=== PATIENT | female | born 1955 | race Caucasian/White ===

== ENCOUNTER 2017-01-30 14:49 | Emergency (ER) | payer BC, OTHER ==
[~2017-01-30] VITALS: Ht 167.6 cm; Wt 135.4 kg
[2017-01-30 15:04] VITALS: TEMP 36.8; Ht 167.6 cm; Wt 135.4 kg
[2017-01-30] MEDS ORDERED: HYDROCODONE/ACETAMOPHEN 5/325MG TAB PO STA (15:30)
[2017-01-30] MEDS ORDERED: BUSP15TA70 PO (15:44)
[2017-01-30] MEDS ORDERED: CETI10TA10 PO (15:44)
[2017-01-30] MEDS ORDERED: QUET1TAB37 PO (15:44)
[2017-01-30] MEDS ORDERED: MOME100A INH (15:44)
[2017-01-30] MEDS ORDERED: QUET400T PO (15:44)
[2017-01-30] MEDS ORDERED: TUMERIC PO (15:44)
[2017-01-30] MEDS ORDERED: OMEP40CA41 PO (15:44)
[2017-01-30] MEDS ORDERED: CLON1TAB3 PO (15:44)
[2017-01-30] MEDS ORDERED: FURO-85 PO (15:44)
[2017-01-30] MEDS ORDERED: FLUT0.15 NAE (15:44)
[2017-01-30] MEDS ORDERED: TRAZ50TA35 PO (15:44)
[2017-01-30] MEDS ORDERED: ATOR-24 PO (15:44)
[2017-01-30] MEDS ORDERED: MELO15TA4 PO (15:44)
[2017-01-30] MEDS ORDERED: BUPR75TA20 PO (15:44)
[2017-01-30] MEDS ORDERED: LEVO50TA6 PO (15:44)
[2017-01-30] MEDS ORDERED: CYAN100020 PO (15:44)
[2017-01-30] MEDS ORDERED: METF-384 PO (15:44)
[2017-01-30] MEDS ORDERED: NUTRTAB40 PO (15:44)
[2017-01-30] MEDS ORDERED: MELATAB2 PO (15:44)
[2017-01-30] MEDS ORDERED: BLAC540C3 PO (15:44)
[2017-01-30] MEDS ORDERED: VNTHFA/IN INH (15:44)
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
[2017-01-30] MEDS ORDERED: HYDR-5688 PO ×2 (16:49→17:12)
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
[2017-01-30 17:16] VITALS: BP 184/89; PULSE 88; O2SAT 92
== END 2017-01-30 17:20 | disposition home or self-care (01) ==
LOC: C.EDB 14:50 → C.EDD 17:20
DX: G44.319 Acute post-traumatic headache, not intractable (principal); S16.1XXA Strain of muscle, fascia and tendon at neck level, initial encounter; S29.019A Strain of muscle and tendon of unspecified wall of thorax, initial encounter; S60.222A Contusion of left hand, initial encounter; V43.52XA Car driver injured in collision with other type car in traffic accident, initial encounter; Y93.89 Activity, other specified; Y99.8 Other external cause status; Y92.410 Unspecified street and highway as the place of occurrence of the external cause; E11.9 Type 2 diabetes mellitus without complications; Z90.710 Acquired absence of both cervix and uterus; Z90.49 Acquired absence of other specified parts of digestive tract; Z90.89 Acquired absence of other organs; Z98.51 Tubal ligation status; Z98.890 Other specified postprocedural states; Z79.84 Long term (current) use of oral hypoglycemic drugs; F31.9 Bipolar disorder, unspecified; E66.01 Morbid (severe) obesity due to excess calories

== ENCOUNTER 2024-05-25 20:39 | Inpatient (IN) ==
[2024-05-25 21:42] LABS: Basophils # (auto) 0.03 K/uL (0.00-0.20); Basophils % (auto) 0.4 %; Eosinophils # (auto) 0.16 K/uL (0.00-0.50); Eosinophils % (auto) 2.2 %; Hematocrit (blood only) 39.6 % (37.0-47.0); Hemoglobin 13.9 g/dl (12.0-16.0); Immature Granulocytes # (auto) 0.02 K/uL (0.01-0.20); Immature Granulocytes % (auto) 0.3 %; Lymphocytes # (auto) 2.28 K/uL (1.20-3.40); Lymphocytes % (auto) 31.8 %; Mean Corpuscular Hemoglobin 30.8 pg (25.0-34.0); Mean Corpuscular Hgb Conc 35.1 g/dL (32.0-36.0); Mean Corpuscular Volume 87.6 fL (80.0-100.0); Mean Platelet Volume 10.9 fL (9.4-12.4); Monocytes # (auto) 0.59 K/uL (0.11-0.59); Monocytes % (auto) 8.2 %; Neutrophils % (auto) 57.1 %; Platelet Count 168 K/uL (130-400); RDW Coefficient of Variation 12.8 % (11.5-14.5); RDW Standard Deviation 40.9 fL (36.4-46.3); Red Blood Count 4.52 M/uL (4.20-5.40); White Blood Count 7.18 K/ul (4.8-10.8)
[2024-05-25 22:00] LABS: Appearance Urine Cloudy (Clear); Bacteria Urine Automated 3+ (None Seen); Bilirubin Urine Negative (Negative); Blood Urine Negative (Negative); Calcium Oxalate Crystals Urine Present (None Prsent); Cast Urine Automated >20 /lpf (0-2); Color Urine Yellow; Glucose Urine UA Negative (Negative); Hyaline Casts Urine Present /lpf (None Presnt); Ketones Urine Trace (Negative); Leukocyte Esterase Urine Trace (Negative); Mucus Urine Present (None Prsent); Nitrite Urine Negative (Negative); Protein Urine Trace (Negative); RBC Urine Automated 0-2 /hpf (0-2); Specific Gravity Urine 1.016 (1.000-1.030); Urobilinogen Urine Negative (Negative)
[2024-05-25 22:00] LABS: Albumin Globulin Ratio 2.1 (0.9-2); Albumin Level 4.8 gm/dl (3.4-5.0); BUN Creatinine Ratio 14.7 (10-20); Bilirubin,Total 1.3 mg/dl (0.2-1.0); Calcium 9.2 mg/dl (8.6-10.3); Creatinine Clr Calc Pharmacy 30.9 ml/min; Est GFR (African American) 27.6 ml/min; Est GFR (Non-African American) 23.8 ml/min; Globulin 2.3 gm/dl (2.5-4.0); Potassium 3.3 mmol/L (3.5-5.1); Total Protein 7.1 gm/dl (6.0-8.3)
[2024-05-25] MEDS: SODIUM CHLORIDE 0.9% 500 ML IV ONE (22:00)
[2024-05-25 22:06] LABS: Troponin I High Sensitivity 4.3 pg/ml (0-14)
[2024-05-25 22:15] LABS: Thyroid Stimulating Hormone 0.041 uIu/ml (0.300-4.500)
[2024-05-25 22:50] LABS: T4 Free Thyroxine 1.44 ng/dl (0.61-1.60)
[2024-05-25] MEDS: POTASSIUM CHLORIDE CRTAB 20 MEQ TABCR PO STA (22:56)
[2024-05-25] MEDS: cefTRIAXone SODIUM 2,000 MG/50 ML BAG IV STA (22:56)
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
--- NOTE | 2024-05-25 23:30 | Emergency Department Note ---
History of Present Illness General Chief complaint: Unable to Void Stated complaint: UNABLE TO VOID, NAUSEA/NOT EATING, LETHARGIC Time Seen by Provider: 05/25/24 21:25 History of Present Illness This 68-year-old female presents ER complaining of decreased appetite and feeling weak and not right for the past 3 weeks. Patient states has been drinking water but is barely urinating. Patient denies chest pain, dyspnea, fever, chills, cough, congestion, flulike illness. Home Medications Medication Instructions Recorded Confirmed Type multivitamin 1 tab PO QAM 12/02/19 05/25/24 History trazodone 100 mg tablet 100 mg PO HS 11/16/20 05/03/24 History cholecalciferol (vitamin D3) 25 25 mcg PO QAM 11/22/20 05/25/24 History mcg (1,000 unit) capsule (Vitamin D3) cyanocobalamin (vitamin B-12) 1,000 mcg PO QAM 11/22/20 05/03/24 History 1,000 mcg tablet (Vitamin B-12) vitamin A 2,400 mcg capsule 8,000 unit PO QAM 11/22/20 05/03/24 History bupropion HCl 150 mg tablet,12 hr 150 mg PO BID #60 ea 01/22/21 05/25/24 Rx sustained-release (Wellbutrin SR) albuterol sulfate 2.5 mg/3 mL 2.5 mg (3 mL) inhalation QID PRN 08/28/22 05/25/24 Rx (0.083 %) solution for nebulization shortness of breath or wheezing #90 mL nebulizer accessories #1 ea 08/28/22 05/03/24 Rx topiramate 100 mg tablet 100 mg PO TID 11/14/22 05/25/24 History lamotrigine 100 mg tablet 200 mg PO BID 04/02/23 05/25/24 History quetiapine 300 mg tablet 300 mg PO HS 04/02/23 05/03/24 History aspirin 81 mg tablet,delayed 81 mg PO HS 06/27/23 05/25/24 History release albuterol sulfate 90 mcg/actuation 2 puff inhalation Q6H PRN 10/09/23 05/25/24 Rx aerosol inhaler shortness of breath or wheezing #6.7 grams buspirone 10 mg tablet 20 mg PO TID 11/17/23 05/25/24 History melatonin 5 mg capsule 10 mg PO HS 11/19/23 05/25/24 History atorvastatin 40 mg tablet 40 mg PO QAM #90 tabs 01/12/24 05/25/24 Rx pantoprazole 40 mg tablet,delayed 40 mg PO BID #180 tabs 03/05/24 05/03/24 Rx release fluticasone furoate 100 1 inh inhalation DAILY PRN 03/09/24 05/03/24 History mcg-vilanterol 25 mcg/dose inhalation powder (Breo Ellipta) meloxicam 15 mg tablet 15 mg PO QPM #90 tabs 03/19/24 05/03/24 Rx potassium chloride 10 mEq 20 meq (2 x 10 mEq) PO DAILY #180 03/24/24 05/03/24 Rx tablet,extended release(part/cryst) tabs semaglutide 2 mg/dose (8 mg/3 mL) 2 mg (0.75 mL) subcut Q7D #3 mL 04/12/24 05/25/24 Rx subcutaneous pen injector furosemide 20 mg tablet (Lasix) 40 mg (2 x 20 mg) PO QAM #90 tabs 04/30/24 05/03/24 Rx metformin 1,000 mg tablet 1,000 mg PO BID #180 tabs 04/30/24 05/03/24 Rx tramadol 50 mg tablet 50 mg PO BID #60 tabs 04/30/24 05/03/24 Rx azelastine 137 mcg (0.1 %) nasal 2 spray intranasal BID PRN 05/03/24 05/25/24 Rx spray congestion #30 mL fluticasone propionate 50 2 spray intranasal BID PRN 05/03/24 05/03/24 Rx mcg/actuation nasal allergies #16 grams spray,suspension (Flonase Allergy Relief) gabapentin 300 mg capsule 300 mg PO .COMPLEX #90 caps 05/03/24 05/03/24 Rx quetiapine 25 mg tablet 25 mg PO BID 05/03/24 05/25/24 History levothyroxine 125 mcg tablet 125 mcg PO DAILYBB 05/25/24 05/25/24 History linaclotide 72 mcg capsule 72 mcg PO DAILY PRN Diarrhea 05/25/24 05/25/24 History Allergies Allergy/AdvReac Type Severity Reaction Status Date / Time pollen extracts Allergy Intermediate ITCHY Verified 05/03/24 13:04 EYES, RUNNY NOSE, SNEEZING No Known Drug Allergies Allergy Unknown Verified 05/03/24 13:04 Past Med/Surg History Problem List (Updated 05/25/24 @ 23:34 by Cydney Moscoso PA-C) Hypokalemia (Acute) Hypomagnesemia (Acute) MARIPOSA (acute kidney injury) (Acute) Acute UTI (Acute) Bulging lumbar disc Lumbar stenosis Greater trochanteric bursitis Lumbar radicular pain Imbalance MCI (mild cognitive impairment) Memory loss Cognitive complaints Dysphagia Sacroiliitis ETD (eustachian tube dysfunction) Migraine TMJ (temporomandibular joint disorder) Left asymmetrical SNHL Adverse reaction to anesthetic agent nausea GERD (gastroesophageal reflux disease) Seasonal allergies Allergy-induced asthma inhaler prn Urinary incontinence Diabetes mellitus with diabetic neuropathy Chronic mixed headache syndrome Hypothyroid Bipolar 1 disorder, depressed Insomnia Diabetes type 2, controlled Obesity Osteoarthritis Sarcoidosis Sensorineural hearing loss of both ears Irritable bowel syndrome with constipation Depression Medical History Hx of bronchitis second week 10/2023, recently put on abx 11/17/23 "because symptoms weren't resolving" Influenza A (~08/28/22) hx Morbid obesity with BMI of 40.0-44.9, adult Nausea and vomiting after administration of anesthetic agent "only happened once" History of kidney stones History of esophageal dilatation COVID-19 (11/16/20) diagnosed x2---middle of Sep 2021 via HOME TEST ONLY--head cold symptoms/sinus issues--no symptoms now 11/16/20--had pneumonia--had to be admitted to [facility] for 1 week on supplemental oxygen Surgical History History of colonoscopy History of total hysterectomy with bilateral salpingo-oophorectomy (BSO) History of cervical discectomy normal ROM History of total right knee replacement (TKR) History of total left knee replacement (TKR) History of tooth extraction History of wisdom tooth extraction History of esophagogastroduodenoscopy (EGD) History of bilateral cataract extraction History of cardiac cath "over 20yrs ago" @ [facility]--no stents; no cardio. History of lymph node biopsy per pt for sarcoidosis diagnosis Hx of tubal ligation S/P appendectomy History of cholecystectomy Family History Aunt Breast cancer, Onset Age: 50 Father Myocardial infarction, Onset Age: 50 Dementia Mother Lung cancer Lung disease Father Depression Heart disease Parkinson disease Sister Anxiety Daughter , age 34 Accidental overdose Other No family history of adverse response to anesthesia Denies family history of Ovarian cancer Prostate cancer Colorectal cancer Social History Smoking Status: Never smoker Second Hand Exposure: Yes (hx as child); Do You Dip or Chew Tobacco: No; Hx Alcohol Use: Yes Alcohol type: wine Hx Substance Use: No Preferred Language: Croatian Communication Ability: Effective Visual Impairment: Partially Limited Hearing Ability: Normal Front End Mechanic Required: No Beliefs That Will Affect Care: None marital status: Current Living Situation: Spouse current occupational status: disabled Feels Safe at Home: Yes Childhood Exposure to Second-Hand Smoke: Yes Diet: regular Diet Comment: Regular caffeine: Yes (1 to 2 cups coffee daily) during the past year weight has: remained stable Dental Care, Regularly: No Physical Activity Frequency: 3-4 Times per Week Physical Activity Frequency Comment: walking-limited by physical condition Seatbelt Use: always Sunscreen Use: Yes Assistive Devices: Hearing Aid - Bilateral Review of Systems A total of 10 systems reviewed and were otherwise negative Physical Exam Vital Signs Vital Signs - 24 hr 05/25/24 20:41 05/25/24 21:40 05/25/24 22:00 Temperature 36.2 C L Temperature Source Temporal Artery Scan Pulse Rate 90 68 Pulse Rate [Apical] 65 Pulse Rhythm Regular Pulse Rhythm [Apical] Regular Pulse Strength Normal Pulse Strength [Apical] Normal Respiratory Rate 20 18 Respiratory Effort / Characteristics Non-Labored Spontaneous Non-Labored Respiratory Depth Normal Normal Respiratory Pattern Regular Blood Pressure 151/74 H Blood Pressure [Left Arm] 120/72 Blood Pressure Mean 99 Blood Pressure Mean [Left Arm] 88 Pulse Oximetry 95 96 Oxygen Delivery Method Room Air Room Air Sepsis Recent Fever Within 48 Hours No Sepsis New/Unexplained Change in Mental Status N/A Sepsis Action Taken by Nursing No Action Required VITALS: Vitals are noted on the nurse's note and reviewed by myself. Vital signs stable. GENERAL: Pleasant female with spouse present, in no acute distress, nondiaphoretic, well-developed well-nourished. SKIN: Capillary reflex less than 2 seconds. HEENT: Normocephalic. PERRLA. EOMI. Nares patent. Mucous membranes moist. Neck is supple without nuchal rigidity. HEART: Regular rate and rhythm LUNGS: Clear to auscultation bilaterally without wheezes, rales or rhonchi. No retractions or accessory muscle use. ABDOMEN: Positive bowel sounds x 4. Normal tympanic percussion. Soft, tender lower abdomen, without masses or organomegaly. Fagan sign negative. No guarding or rebound tenderness. no CVA tenderness MUSCULOSKELETAL: No gross musculoskeletal defects. NEURO: Patient was alert and oriented to person place and time. No focal neurological deficits. Course Administered Medications Discontinued Medications Sodium Chloride (Nss) 500 mls @ 999 mls/hr IV .Q31M ONE Stop: 05/25/24 22:06 Last Infusion: 05/25/24 22:43 Dose: Infused Documented By: Admin: 05/25/24 22:00 Dose: 999 mls/hr Documented By: EUGENIO Ceftriaxone Sodium (Rocephin) 2,000 mg in 50 mls @ 100 mls/hr IV NOW STA Stop: 05/25/24 22:38 Last Admin: 05/25/24 22:56 Dose: 100 mls/hr Documented By: EUGENIO Potassium Chloride (Potassium Chloride Crtab 20 Meq Tabcr) 40 meq PO NOW STA Stop: 05/25/24 22:09 Last Admin: 05/25/24 22:56 Dose: 40 meq Documented By: EUGENIO Medical Decision Making Medical Records Attestation: I reviewed the patient's medical records. Home Medications Current Medication List: was personally reviewed by me Laboratory Data Attestation: I reviewed the patient's lab results. 05/25/24 21:19 05/25/24 21:19 Lab Results 05/25/24 05/25/24 Range/Units 21:19 Unknown WBC 7.18 (4.8-10.8) K/ul RBC 4.52 (4.20-5.40) M/uL Hgb 13.9 (12.0-16.0) g/dl Hct 39.6 (37.0-47.0) % MCV 87.6 (80.0-100.0) fL MCH 30.8 (25.0-34.0) pg MCHC 35.1 (32.0-36.0) g/dL RDW Std Deviation 40.9 (36.4-46.3) fL RDW Coeff of [place] 12.8 (11.5-14.5) % Plt Count 168 (130-400) K/uL MPV 10.9 (9.4-12.4) fL Immature Gran % (Auto) 0.3 % Neut % (Auto) 57.1 % Lymph % (Auto) 31.8 % Scott % (Auto) 8.2 % Eos % (Auto) 2.2 % Baso % (Auto) 0.4 % Neut # (Auto) 4.10 (1.40-6.50) K/uL Lymph # (Auto) 2.28 (1.20-3.40) K/uL Scott # (Auto) 0.59 (0.11-0.59) K/uL Eos # (Auto) 0.16 (0.00-0.50) K/uL Baso # (Auto) 0.03 (0.00-0.20) K/uL Immature Gran # (Auto) 0.02 (0.01-0.20) K/uL Sodium 132 L (136-145) mmol/L Potassium 3.3 L (3.5-5.1) mmol/L Chloride 91 L (98-107) mmol/L Carbon Dioxide 28 (21-32) mmol/L Anion Gap 13 H (3-11) BUN 31 H (6-23) mg/dl Creatinine 2.11 H (0.6-1.2) mg/dl Est Cr Clr Drug Dosing 30.9 ml/min Est GFR ( Amer) 27.6 ml/min Est GFR (Non-Af Amer) 23.8 ml/min BUN/Creatinine Ratio 14.7 (10-20) Glucose 90 (70-99(Fasting)) mg/dl Calcium 9.2 (8.6-10.3) mg/dl Magnesium 1.0 L (1.7-2.4) mg/dl Total Bilirubin 1.3 H (0.2-1.0) mg/dl AST 21 (13-39) U/L ALT 19 (7-52) U/L Alkaline Phosphatase 58 (34-104) U/L Troponin I High Sens 4.3 (0-14) pg/ml Total Protein 7.1 (6.0-8.3) gm/dl Albumin 4.8 (3.4-5.0) gm/dl Globulin 2.3 L (2.5-4.0) gm/dl Albumin/Globulin Ratio 2.1 H (0.9-2) Lipase 60 (11-82) U/L TSH 0.041 L (0.300-4.500) uIu/ml Free T4 1.44 (0.61-1.60) ng/dl Urine Color Yellow Urine Appearance Cloudy A (Clear) Urine pH 5.0 (4.5-7.5) Ur Specific [place] 1.016 (1.000-1.030) Urine Protein Trace H (Negative) Urine Glucose (UA) Negative (Negative) Urine Ketones Trace H (Negative) Urine Blood Negative (Negative) Urine Nitrite Negative (Negative) Urine Bilirubin Negative (Negative) Urine Urobilinogen Negative (Negative) Ur Leukocyte Esterase Trace H (Negative) Urine WBC (Auto) 6-10 H (0-5) /hpf Urine RBC (Auto) 0-2 (0-2) /hpf U Hyaline Cast (Auto) >20 H (0-2) /lpf U Epithel Cells (Auto) 11-20 H (0-2) /hpf Urine Bacteria (Auto) 3+ H (None Seen) Calcium Oxalate Crystal Present A (None Prsent) Hyaline Casts Present A (None Presnt) /lpf Urine Mucus Present A (None Prsent) Imaging Data Attestation: I personally reviewed and interpreted this imaging study as follows: Radiologist's Impression: Abdomen/Pelvis CT 05/25/24 22:08 Exam(s): CT ABDOMEN + PELVIS Without Contrast EXAM: CT Abdomen and Pelvis Without Intravenous Contrast CLINICAL HISTORY: Reason for exam: lower abd pain. TECHNIQUE: Axial computed tomography images of the abdomen and pelvis without intravenous contrast. CTDI is 27.97 mGy and DLP is 1322.6 mGy-cm. Automated exposure control was utilized for the study. A dose lowering technique was utilized adhering to the principles of ALARA. COMPARISON: CT abdomen/pelvis on 11/19/2021 FINDINGS: Lung bases: Unremarkable. No mass. No consolidation. ABDOMEN: Liver: Unremarkable. Gallbladder and bile ducts: Prior cholecystectomy. No ductal dilation. Pancreas: Unremarkable. No ductal dilation. Spleen: Unremarkable. No splenomegaly. Adrenals: Unremarkable. No mass. Kidneys and ureters: Nonspecific mild bilateral perinephric fat stranding. Punctate nonobstructing right renal stone. No hydronephrosis or obstructing ureteral stone. Stomach and bowel: Fluid in the colon is suggestive of diarrheal state. Possible enteritis. No small bowel obstruction. Dilation of the stomach is limited by underdistention. PELVIS: Appendix: Appendix is not visualized on this exam. Bladder: Unremarkable. No stones. Reproductive: Prior hysterectomy. ABDOMEN and PELVIS: Intraperitoneal space: Unremarkable. No free air. No significant fluid collection. Bones/joints: Degenerative changes of the spine. No acute fracture. No dislocation. Soft tissues: Unremarkable. Vasculature: Phleboliths of the pelvis. No abdominal aortic aneurysm. Lymph nodes: Unremarkable. No enlarged lymph nodes. IMPRESSION: 1. Fluid in the colon is suggestive of diarrheal state. Possible enteritis. No small bowel obstruction. 2. Punctate nonobstructing right renal stone. No hydronephrosis or obstructing ureteral stone. Electronically signed by: Zaina Orozco M.D. 05/25/24 23:16 PM [facility] Narrative Prior records/ancillary studies reviewed and summarized above. Nursing notes reviewed. Additional history obtained from family. The patient's history was concerning for feeling rundown for the month. Differential diagnosis: Etiologies such as metabolic, infection, hypo/hyperglycemia, electrolyte abnormalities, cardiac sources, intracerebral event, toxicologic, neurologic, as well as others were entertained. Physical examination: As above. ER treatment provided: IV Lock An order was placed for continuous cardiac monitoring. The monitor shows a rate of 60-100 with a sinus rhythm per my interpretation. IV fluids, Rocephin for UTI, potassium and magnesium were replaced On reassessment the patient felt better. Diagnostics interpretation by me: ECG: Ordered for weakness EKG: Normal sinus, normal intervals, no acute ST-T wave changes. Impression normal sinus rhythm independent interpreted by myself The labs Independently Interpreted by myself revealed acute kidney injury, low magnesium, low potassium Imaging studies: CT as above Consultation: A consultation was placed with the hospitalist. The case was discussed and diagnostics were reviewed. The patient was evaluated in the ER for further treatment. Exam and history seem consistent with acute kidney injury with UTI low magnesium and potassium. Patient was medicated as above. She was started on antibiotics. Prior urine culture was reviewed. Medicine was consulted case discussed. She will be mated to the medical service.By the evaluation outlined above emergent etiologies such as cardiac sources, intracerebral event, toxologic, neurologic, abnormalities blood glucose, metabolic, as well as others were deemed relatively unlikely. The pt informed about the findings as listed above. All questions were answered and pleased with the treatment. The chart was completed utilizing [employer] Speech voice recognition software. Grammatical errors, random word insertions, pronoun errors, and incomplete sentences are an occassional consequence of this system due to software limitations, ambient noise, and hardware issues. Any formal questions or concerns about the content, text, or information contained within the body of this dictation should be directly addressed to the physician dental ceramist assistant for clarification. Impression & Plan Acute UTI, MARIPOSA (acute kidney injury), Hypomagnesemia, Hypokalemia Discharge Plan Visit Data Chief Complaint: Unable to Void Stated Complaint: UNABLE TO VOID, NAUSEA/NOT EATING, LETHARGIC ED Provider: [facility] ED Midlevel Provider: Cydney Moscoso Discharge Problem: Acute UTI, MARIPOSA (acute kidney injury), Hypomagnesemia, Hypokalemia Patient Disposition: Admitted As Inpatient Condition: Fair Forms Stand Alone Forms: [facility] Prescriptions Prescriptions: No Action quetiapine 25 mg tablet 25 mg PO BID Rx Instructions: morning and afternoon gabapentin 300 mg capsule 300 mg PO .COMPLEX Qty: 90 0RF Rx Instructions: 300 mg PO QHS x 1 week; 1 cap PO BID x 1 week; then 1 cap PO TID; bupropion HCl [Wellbutrin SR] 150 mg tablet sustained-release 12 hr 150 mg PO BID Qty: 60 2RF albuterol sulfate 90 mcg/actuation HFA aerosol inhaler 2 puff inhalation Q6H PRN (Reason: shortness of breath or wheezing) Qty: 6.7 1RF linaclotide 72 mcg capsule 72 mcg PO QAM Qty: 90 2RF Rx Instructions: clarified with patient taking 72 mcg capsule daily atorvastatin 40 mg tablet 40 mg PO QAM Qty: 90 1RF pantoprazole 40 mg tablet,delayed release (DR/EC) 40 mg PO BID Qty: 180 0RF meloxicam 15 mg tablet 15 mg PO QPM Qty: 90 2RF levothyroxine 125 mcg tablet 125 mcg PO DAILY Qty: 90 1RF semaglutide 2 mg/dose (8 mg/3 mL) pen injector 2 mg subcut Q7D Qty: 3 2RF Rx Instructions: MONDAYS furosemide [Lasix] 20 mg tablet 40 mg PO QAM Qty: 90 1RF Patient Comments: patient decreased herself metformin 1,000 mg tablet 1,000 mg PO BID Qty: 180 1RF tramadol 50 mg tablet 50 mg PO BID Qty: 60 0RF azelastine 137 mcg (0.1 %) spray,non-aerosol 2 spray INTNAS BID PRN (Reason: congestion) Qty: 30 1RF Rx Instructions: Administer into each nostril fluticasone propionate [Flonase Allergy Relief] 50 mcg/actuation spray,suspension 2 spray INTNAS BID PRN (Reason: allergies) Qty: 16 1RF multivitamin Tablet 1 tab PO QAM trazodone 100 mg tablet 100 mg PO HS (DME) nebulizer accessories Kit See Rx Instructions .Route Qty: 1 0RF Rx Instructions: As directed albuterol sulfate 2.5 mg /3 mL (0.083 %) solution for nebulization 2.5 mg inhalation QID PRN (Reason: shortness of breath or wheezing) Qty: 90 2RF Rx Instructions: DX ASTHMA topiramate 100 mg tablet 100 mg PO TID potassium chloride 10 mEq tablet,ER particles/crystals 20 meq PO DAILY Qty: 180 3RF fluticasone furoate-vilanterol [Breo Ellipta] 100-25 mcg/dose blister with device 1 inh inhalation DAILY PRN vitamin A 8,000 unit Capsule 8,000 unit PO QAM cyanocobalamin (vitamin B-12) [Vitamin B-12] 1,000 mcg Tablet 1,000 mcg PO QAM cholecalciferol (vitamin D3) [Vitamin D3] 25 mcg (1,000 unit) Capsule 25 mcg PO QAM lamotrigine 100 mg tablet 200 mg PO BID quetiapine 300 mg tablet 300 mg PO HS aspirin 81 mg tablet,delayed release (DR/EC) 81 mg PO HS buspirone 10 mg tablet 20 mg PO TID melatonin 5 mg Capsule 5 mg PO HS Referrals Referrals: Jennifer Peng DO [Primary Care Provider] -
--- NOTE | 2024-05-25 23:32 | Emergency Department Note ---
ED Visit Note I was consulted by the Advanced Practice Provider. I personally made/approved the management plan and take responsibility for the patient management. I performed a substantive portion of the visit. This includes the aspects of: -History/Physical -MDM .
[2024-05-25] MEDS: MAGNESIUM SULFATE / D5W 1 GM/100 ML BAG IV SCH (23:36)
--- NOTE | 2024-05-25 23:45 | History & Physical Report ---
Date of Service May 25, 2024 Assessment & Plan (1) MARIPOSA (acute kidney injury): Plan: 68yo female with DM, GERD, Bipolar I and chronic pain presenting with acute on chronic abdominal pain. Patient reports new urinary symptoms as well. Workup with electrolyte derangements as below - hypomagnesemia, hypokalemia and hyponatremia. Also with MARIPOSA and acute UTI. BUN=31 and Cr=2.11, roughly doubled from last measurement on 03/24/24 (BUN=15 and Cr=0.81 at that time). Patient reports decreased UOP over the last few days. Bladder scan performed in the ER with minimal urine (appx 65mL) in bladder. Suspect pre-renal etiology - possibly secondary to decreased intake -Admit to medical with telemetry -Check urine Cr and Na to calculate FeNA -Avoid nephrotoxic agents -Renal dosing where needed (2) Hypokalemia: Plan: K=3.3. Possibly secondary to poor oral intake -Patient has been given 40meq PO thus far -Will continue repletion with caution given MARIPOSA - 10mEq KCL to be placed in 2L LR maintenance fluid -Repeat BMP in AM (3) Hypomagnesemia: Plan: Magnesium significantly low at 1. Has received 2gm thus far. Uncertain if this is secondary to poor oral intake. Patient is also on Protonix 40mg po BID. -Continue Magnesium supplementation -Will order 3 additional grams (Total 5gm) -Repeat Magnesium level in AM (4) Acute UTI: Plan: Patient with UTI. She is afebrile, HD stable and non-toxic in appearance. Possibly contributing to her lower abdominal pain. -Follow culture -Ceftriaxone 2gm IV daily (5) Bipolar 1 disorder, depressed: Plan: Patient reports stable moods -Continue Trazodone 100mg po qHS -Continue Topamax 100mg po TID -Continue Seroquel 300mg po qHS and 25mg po BID -Continue Lamictal - will REDUCE dose from 200mg po BID to 100mg po BID for now given renal compromise -Continue Buspar 20mg po TID -Continue Bupropion 150mg po BID Plan Chronic Medical Conditions: GERD - chronic -Continue Protonix -Will change to 40mg IV BID Constipation - patient reports that she takes linzess as needed for her IBS-C. She takes it approximately 3x weekly with good results -Continue Linzess PRN Hypothyroidism - chronic. TSH is low at 0.041 with normal T4 -Continue Synthroid 125mcg po daily Diabetes - well controlled. Patient is on Metformin. Last RpmC5A=9.6 on 03/24/24 -Hold oral agents -ISS Hyperlipidemia - chronic -Continue Atorvastatin History of Present Illness Chief Complaint: abdominal pain Primary Care Provider: Jennifer Peng DO Pearl Crouch is a 68yo female with history of DM, GERD, Hypothyroidism and chronic pain presenting from home with ongoing abdominal pain. Patient reports she has had diffuse abdominal discomfort for a while. However, over the last day she has had worsening of lower abdominal discomfort - she reports it as a burning and cramping pain. She reports normal bowel movements - no diarrhea or blood. She has been having difficulty urinating over the last 2-3 days - she reports minimal urine output despite trying to drink increased fluids. This evening she developed dysuria and nausea with dry heaving as well. In the ER she is afebrile, HD stable and non-toxic ER Course: NSS x 500mL KCl 40mEq PO Ceftriaxone 2gm IV Magnesium x 2gm Tylenol x 1gm Allergies Allergy/AdvReac Type Severity Reaction Status Date / Time pollen extracts Allergy Intermediate ITCHY Verified 05/25/24 23:48 EYES, RUNNY NOSE, SNEEZING No Known Drug Allergies Allergy Unknown Unknown Verified 05/25/24 23:48 Home Medications Medication Instructions Recorded Confirmed Type multivitamin 1 tab PO QAM 12/02/19 05/25/24 History trazodone 100 mg tablet 100 mg PO HS 11/16/20 05/25/24 History cholecalciferol (vitamin D3) 25 25 mcg PO QAM 11/22/20 05/25/24 History mcg (1,000 unit) capsule (Vitamin D3) cyanocobalamin (vitamin B-12) 1,000 mcg PO QAM 11/22/20 05/25/24 History 1,000 mcg tablet (Vitamin B-12) vitamin A 2,400 mcg capsule 8,000 unit PO QAM 11/22/20 05/25/24 History bupropion HCl 150 mg tablet,12 hr 150 mg PO BID #60 ea 01/22/21 05/25/24 Rx sustained-release (Wellbutrin SR) albuterol sulfate 2.5 mg/3 mL 2.5 mg (3 mL) inhalation QID PRN 12/07/22 09/03/24 Rx (0.083 %) solution for nebulization shortness of breath or wheezing #90 mL nebulizer accessories #1 ea 08/28/22 05/25/24 Rx topiramate 100 mg tablet 100 mg PO TID 11/14/22 05/25/24 History lamotrigine 100 mg tablet 200 mg PO BID 04/02/23 05/25/24 History quetiapine 300 mg tablet 300 mg PO HS 04/02/23 05/25/24 History aspirin 81 mg tablet,delayed 81 mg PO HS 06/27/23 05/25/24 History release albuterol sulfate 90 mcg/actuation 2 puff inhalation Q6H PRN 10/09/23 05/25/24 Rx aerosol inhaler shortness of breath or wheezing #6.7 grams buspirone 10 mg tablet 20 mg PO TID 11/17/23 05/25/24 History melatonin 5 mg capsule 10 mg PO HS 11/19/23 05/25/24 History atorvastatin 40 mg tablet 40 mg PO QAM #90 tabs 01/12/24 05/25/24 Rx pantoprazole 40 mg tablet,delayed 40 mg PO BID #180 tabs 03/05/24 05/25/24 Rx release fluticasone furoate 100 1 inh inhalation DAILY PRN 03/09/24 05/25/24 History mcg-vilanterol 25 mcg/dose Shortness Of Breath inhalation powder (Breo Ellipta) semaglutide 2 mg/dose (8 mg/3 mL) 2 mg (0.75 mL) subcut Q7D #3 mL 04/12/24 05/25/24 Rx subcutaneous pen injector furosemide 20 mg tablet (Lasix) 40 mg (2 x 20 mg) PO QAM #90 tabs 04/30/24 05/25/24 Rx metformin 1,000 mg tablet 1,000 mg PO BID #180 tabs 04/30/24 05/25/24 Rx tramadol 50 mg tablet 50 mg PO BID #60 tabs 04/30/24 05/25/24 Rx azelastine 137 mcg (0.1 %) nasal 2 spray intranasal BID PRN 05/03/24 05/25/24 Rx spray congestion #30 mL fluticasone propionate 50 2 spray intranasal BID PRN 05/03/24 05/25/24 Rx mcg/actuation nasal allergies #16 grams spray,suspension (Flonase Allergy Relief) gabapentin 300 mg capsule 300 mg PO .COMPLEX #90 caps 05/03/24 05/25/24 Rx quetiapine 25 mg tablet 25 mg PO BID 05/03/24 05/25/24 History levothyroxine 125 mcg tablet 125 mcg PO DAILYBB 05/25/24 05/25/24 History linaclotide 72 mcg capsule 72 mcg PO DAILY PRN Diarrhea 05/25/24 05/25/24 History meloxicam 15 mg tablet 15 mg PO QDL 05/25/24 05/25/24 History potassium chloride 10 mEq 20 meq PO QAM 05/25/24 05/25/24 History tablet,extended release(part/cryst) Past Med/Surg History Problem List Hypokalemia (Acute) Hypomagnesemia (Acute) MARIPOSA (acute kidney injury) (Acute) Acute UTI (Acute) Bulging lumbar disc Lumbar stenosis Greater trochanteric bursitis Lumbar radicular pain Imbalance MCI (mild cognitive impairment) Memory loss Cognitive complaints Dysphagia Sacroiliitis ETD (eustachian tube dysfunction) Migraine TMJ (temporomandibular joint disorder) Left asymmetrical SNHL Adverse reaction to anesthetic agent nausea GERD (gastroesophageal reflux disease) Seasonal allergies Allergy-induced asthma inhaler prn Urinary incontinence Diabetes mellitus with diabetic neuropathy Chronic mixed headache syndrome Hypothyroid Bipolar 1 disorder, depressed Insomnia Diabetes type 2, controlled Obesity Osteoarthritis Sarcoidosis Sensorineural hearing loss of both ears Irritable bowel syndrome with constipation Depression Medical History Hx of bronchitis second week 10/2023, recently put on abx 11/17/23 "because symptoms weren't resolving" Influenza A (~08/28/22) hx Morbid obesity with BMI of 40.0-44.9, adult Nausea and vomiting after administration of anesthetic agent "only happened once" History of kidney stones History of esophageal dilatation COVID-19 (11/16/20) diagnosed x2---middle of Sep 2021 via HOME TEST ONLY--head cold symptoms/s inus issues--no symptoms now 11/16/20--had pneumonia--had to be admitted to [facility] for 1 week on supplemental oxygen Surgical History History of colonoscopy History of total hysterectomy with bilateral salpingo-oophorectomy (BSO) History of cervical discectomy normal ROM History of total right knee replacement (TKR) History of total left knee replacement (TKR) History of tooth extraction History of wisdom tooth extraction History of esophagogastroduodenoscopy (EGD) History of bilateral cataract extraction History of cardiac cath "over 20yrs ago" @ [facility]--no stents; no cardio. History of lymph node biopsy per pt for sarcoidosis diagnosis Hx of tubal ligation S/P appendectomy History of cholecystectomy Family History Aunt Breast cancer, Onset Age: 50 Father Myocardial infarction, Onset Age: 50 Dementia Mother Lung cancer Lung disease Father Depression Heart disease Parkinson disease Sister Anxiety Daughter , age 34 Accidental overdose Other No family history of adverse response to anesthesia Denies family history of Ovarian cancer Prostate cancer Colorectal cancer Social History Smoking Status: Never smoker Second Hand Exposure: Yes (hx as child); Do You Dip or Chew Tobacco: No; Hx Alcohol Use: Yes Alcohol type: wine Hx Substance Use: No Preferred Language: Bermudian Communication Ability: Effective Visual Impairment: Partially Limited Hearing Ability: Normal Networking Technician Required: No Beliefs That Will Affect Care: None marital status: Current Living Situation: Spouse current occupational status: disabled Feels Safe at Home: Yes Childhood Exposure to Second-Hand Smoke: Yes Diet: regular Diet Comment: Regular caffeine: Yes (1 to 2 cups coffee daily) during the past year weight has: remained stable Dental Care, Regularly: No Physical Activity Frequency: 3-4 Times per Week Physical Activity Frequency Comment: walking-limited by physical condition Seatbelt Use: always Sunscreen Use: Yes Assistive Devices: Hearing Aid - Bilateral Review of Systems Review of Systems: All systems reviewed & are unremarkable except as noted in HPI & below Physical Exam Physical Exam: General: patient resting comfortably, NAD, non-toxic in appearance, AA&O x 4 Skin: warm, dry, intact, no rashes or lesions HEENT: NC/AT, PERRL, EOMI, anicteric sclera, conjunctiva without injection, external ear normal to inspection and nontender, nares patent, moist mucus membranes, dentition intact, no oropharyngeal lesions, neck supple, trachea midline, no LAD, no thyromegaly, no JVD Heart: +S1/S2, regular, no m/r/g Lungs: equal air entry bilaterally, no rales/rhonchi/wheezes Abd: +BS, soft, ND, lower abdominal tenderness to palpation with some voluntary guarding, no masses/organomegaly/ascites Ext: warm, 2+ pulses in UE/LE bilaterally, no clubbing/cyanosis or edema Neuro: nonfocal, patient AA&O x 4, speech intact, no facial droop, moving all extremities on command with equal strength 5/5 Results & Data Results & Data Vital Signs (Past 12 Hours) Vital Signs Temp Pulse Pulse Resp BP BP Pulse Ox 05/25/24 22:00 65 18 120/72 96 05/25/24 21:40 68 05/25/24 20:41 36.2 C L 90 20 151/74 H 95 O2 Del Method 05/25/24 22:00 Room Air 05/25/24 21:40 05/25/24 20:41 Room Air Laboratory Results Laboratory Results WBC 7.18 K/ul (4.8-10.8) 05/25/24 21:19 RBC 4.52 M/uL (4.20-5.40) 05/25/24 21:19 Hgb 13.9 g/dl (12.0-16.0) 05/25/24 21:19 Hct 39.6 % (37.0-47.0) 05/25/24 21:19 MCV 87.6 fL (80.0-100.0) 05/25/24 21:19 MCH 30.8 pg (25.0-34.0) 05/25/24 21: MCHC 35.1 g/dL (32.0-36.0) 05/25/24 21:19 RDW Std Deviation 40.9 fL (36.4-46.3) 05/25/24 21:19 RDW Coeff of [place] 12.8 % (11.5-14.5) 05/25/24 21: Plt Count 168 K/uL (130-400) 05/25/24 21:19 MPV 10.9 fL (9.4-12.4) 05/25/24 21:19 Immature Gran % (Auto) 0.3 % 05/25/24 21:19 Neut % (Auto) 57.1 % 05/25/24 21:19 Lymph % (Auto) 31.8 % 05/25/24 21:19 [place] % (Auto) 8.2 % 05/25/24 21:19 Eos % (Auto) 2.2 % 05/25/24 21:19 Baso % (Auto) 0.4 % 05/25/24 21:19 Neut # (Auto) 4.10 K/uL (1.40-6.50) 05/25/24 21:19 Lymph # (Auto) 2.28 K/uL (1.20-3.40) 05/25/24 21:19 [place] # (Auto) 0.59 K/uL (0.11-0.59) 05/25/24 21:19 Eos # (Auto) 0.16 K/uL (0.00-0.50) 05/25/24 21:19 Baso # (Auto) 0.03 K/uL (0.00-0.20) 05/25/24 21:19 Immature Gran # (Auto) 0.02 K/uL (0.01-0.20) 05/25/24 21:19 Sodium 132 mmol/L (136-145) L 05/25/24 21:19 Potassium 3.3 mmol/L (3.5-5.1) L 05/25/24 21:19 Chloride 91 mmol/L (98-107) L 05/25/24 21:19 Carbon Dioxide 28 mmol/L (21-32) 05/25/24 21:19 Anion Gap 13 (3-11) H 05/25/24 21:19 BUN 31 mg/dl (6-23) H 05/25/24 21:19 Creatinine 2.11 mg/dl (0.6-1.2) H 05/25/24 21:19 Est Cr Clr Drug Dosing 30.9 ml/min 05/25/24 21:19 Est GFR ( Amer) 27.6 ml/min 05/25/24 21:19 Est GFR (Non-Af Amer) 23.8 ml/min 05/25/24 21:19 BUN/Creatinine Ratio 14.7 (10-20) 05/25/24 21:19 Glucose 90 mg/dl (70-99(Fasting)) 05/25/24 21:19 Calcium 9.2 mg/dl (8.6-10.3) 05/25/24 21:19 Magnesium 1.0 mg/dl (1.7-2.4) L 05/25/24 21:19 Total Bilirubin 1.3 mg/dl (0.2-1.0) H 05/25/24 21:19 AST 21 U/L (13-39) 05/25/24 21:19 ALT 19 U/L (7-52) 05/25/24 21:19 Alkaline Phosphatase 58 U/L (34-104) 05/25/24 21:19 Troponin I High Sens 4.3 pg/ml (0-14) 05/25/24 21:19 Total Protein 7.1 gm/dl (6.0-8.3) 05/25/24 21:19 Albumin 4.8 gm/dl (3.4-5.0) 05/25/24 21:19 Globulin 2.3 gm/dl (2.5-4.0) L 05/25/24 21:19 Albumin/Globulin Ratio 2.1 (0.9-2) H 05/25/24 21:19 Lipase 60 U/L (11-82) 05/25/24 21:19 TSH 0.041 uIu/ml (0.300-4.500) L 05/25/24 21:19 Free T4 1.44 ng/dl (0.61-1.60) 05/25/24 21:19 Urine Color Yellow 05/25/24 Unknown Urine Appearance Cloudy (Clear) A 05/25/24 Unknown Urine pH 5.0 (4.5-7.5) 05/25/24 Unknown Ur Specific [place] 1.016 (1.000-1.030) 05/25/24 Unknown Urine Protein Trace (Negative) H 05/25/24 Unknown Urine Glucose (UA) Negative (Negative) 05/25/24 Unknown Urine Ketones Trace (Negative) H 05/25/24 Unknown Urine Blood Negative (Negative) 05/25/24 Unknown Urine Nitrite Negative (Negative) 05/25/24 Unknown Urine Bilirubin Negative (Negative) 05/25/24 Unknown Urine Urobilinogen Negative (Negative) 05/25/24 Unknown Ur Leukocyte Esterase Trace (Negative) H 05/25/24 Unknown Urine WBC (Auto) 6-10 /hpf (0-5) H 05/25/24 Unknown Urine RBC (Auto) 0-2 /hpf (0-2) 05/25/24 Unknown U Hyaline Cast (Auto) >20 /lpf (0-2) H 05/25/24 Unknown U Epithel Cells (Auto) 11-20 /hpf (0-2) H 05/25/24 Unknown Urine Bacteria (Auto) 3+ (None Seen) H 05/25/24 Unknown Calcium Oxalate Crystal Present (None Prsent) A 05/25/24 Unknown Hyaline Casts Present /lpf (None Presnt) A 05/25/24 Unknown Urine Mucus Present (None Prsent) A 05/25/24 Unknown Impressions Abdomen/Pelvis CT 05/25/24 22:08 Exam(s): CT ABDOMEN + PELVIS Without Contrast EXAM: CT Abdomen and Pelvis Without Intravenous Contrast CLINICAL HISTORY: Reason for exam: lower abd pain. TECHNIQUE: Axial computed tomography images of the abdomen and pelvis without intravenous contrast. CTDI is 27.97 mGy and DLP is 1322.6 mGy-cm. Automated exposure control was utilized for the study. A dose lowering technique was utilized adhering to the principles of ALARA. COMPARISON: CT abdomen/pelvis on 11/19/2021 FINDINGS: Lung bases: Unremarkable. No mass. No consolidation. ABDOMEN: Liver: Unremarkable. Gallbladder and bile ducts: Prior cholecystectomy. No ductal dilation. Pancreas: Unremarkable. No ductal dilation. Spleen: Unremarkable. No splenomegaly. Adrenals: Unremarkable. No mass. Kidneys and ureters: Nonspecific mild bilateral perinephric fat stranding. Punctate nonobstructing right renal stone. No hydronephrosis or obstructing ureteral stone. Stomach and bowel: Fluid in the colon is suggestive of diarrheal state. Possible enteritis. No small bowel obstruction. Dilation of the stomach is limited by underdistention. PELVIS: Appendix: Appendix is not visualized on this exam. Bladder: Unremarkable. No stones. Reproductive: Prior hysterectomy. ABDOMEN and PELVIS: Intraperitoneal space: Unremarkable. No free air. No significant fluid collection. Bones/joints: Degenerative changes of the spine. No acute fracture. No dislocation. Soft tissues: Unremarkable. Vasculature: Phleboliths of the pelvis. No abdominal aortic aneurysm. Lymph nodes: Unremarkable. No enlarged lymph nodes. IMPRESSION: 1. Fluid in the colon is suggestive of diarrheal state. Possible enteritis. No small bowel obstruction. 2. Punctate nonobstructing right renal stone. No hydronephrosis or obstructing ureteral stone. Electronically signed by: Zaina Orozco M.D. 05/25/24 23:16 PM PG Care Time/CCT Total # of Minutes Spent Total Time Spent with Patient: Total time spent is greater than 50% in coordination of care (as documented) at patient's floor/unit and/or counseling patient: Coding Level of Care Code 67966 INT INP/OBS CARE 3/75MIN Diagnoses MARIPOSA (acute kidney injury) N17.9 Hypokalemia E87.6 Hypomagnesemia E83.42 Acute UTI N39.0 Bipolar 1 disorder, depressed F31.9
[2024-05-26] MEDS: ACETAMINOPHEN 1,000 MG/100 ML VIAL IV STA (00:08)
[2024-05-26] MEDS ORDERED: GLUCOSE 10 TAB/TUBE PO PRN (01:52)
[2024-05-26] MEDS ORDERED: GLUCAGON FOR INJ 1 MG VIAL SQ PRN (01:52)
[2024-05-26] MEDS ORDERED: ALBUTEROL HFA 8 GM INHALER INH PRN (01:52)
[2024-05-26] MEDS ORDERED: GLUCOSE 40% GEL 15 GM TUBE PO PRN (01:52)
[2024-05-26] MEDS ORDERED: CARBOHYDRATES FOR HYPOGLYCEMIA PO PRN (01:52)
[2024-05-26] MEDS ORDERED: DEXTROSE 50% 50 ML SYRINGE IV PRN (01:52)
[2024-05-26 02:17] LABS: Phosphorus 4.9 mg/dl (2.5-4.9)
[2024-05-26] MEDS ORDERED: Nursing to Pharmacy Communication SCH (02:30)
[2024-05-26] MEDS: POTASSIUM CHLORIDE 10 MEQ in LACTATED RINGER'S 1,000 ML IV SCH (02:43)
[2024-05-26] MEDS: MAGNESIUM SULFATE / D5W 1 GM/100 ML BAG IV SCH (02:47)
[2024-05-26] MEDS: GABAPENTIN 300 MG CAP PO ONE (02:54)
[2024-05-26] MEDS: MELATONIN 3 MG TAB PO ONE (02:55)
[2024-05-26] MEDS: QUEtiapine FUMARATE 300 MG TABLET PO ONE (02:56)
[2024-05-26] MEDS: traZODone HCL 100 MG TAB PO ONE (02:56)
[2024-05-26] MEDS: ONDANSETRON INJ 2 MG/ML 2 ML VIAL IV PRN (03:30)
[2024-05-26] MEDS: LEVOTHYROXINE SODIUM 125 MCG TABLET PO SCH (05:46)
[2024-05-26 06:38] LABS: Hematocrit (blood only) 34.8 % (37.0-47.0); Hemoglobin 11.8 g/dl (12.0-16.0); Mean Corpuscular Hemoglobin 29.9 pg (25.0-34.0); Mean Corpuscular Hgb Conc 33.9 g/dL (32.0-36.0); Mean Corpuscular Volume 88.1 fL (80.0-100.0); Mean Platelet Volume 10.9 fL (9.4-12.4); Platelet Count 129 K/uL (130-400); RDW Coefficient of Variation 12.6 % (11.5-14.5); RDW Standard Deviation 40.2 fL (36.4-46.3); Red Blood Count 3.95 M/uL (4.20-5.40); White Blood Count 4.81 K/ul (4.8-10.8)
[2024-05-26 06:50] LABS: BUN Creatinine Ratio 18.9 (10-20); Calcium 8.2 mg/dl (8.6-10.3); Creatinine Clr Calc Pharmacy 45.7 ml/min; Est GFR (African American) 44.1 ml/min; Est GFR (Non-African American) 38.1 ml/min; Magnesium 2.3 mg/dl (1.7-2.4); Potassium 3.5 mmol/L (3.5-5.1)
--- NOTE | 2024-05-26 08:20 | Hospitalist Progress Note ---
Date of Service May 26, 2024 Assessment & Plan (1) MARIPOSA (acute kidney injury): Plan: 05/25/24: BUN=31 and Cr=2.11, roughly doubled from last measurement on 03/24/24 (BUN=15 and Cr=0.81 at that time). Patient reports decreased UOP over the last few days. Bladder scan performed in the ER with minimal urine (appx 65mL) in bladder. Suspect pre-renal etiology - possibly secondary to decreased intake 05/26/24: kidney markers resolving from yesterday - BUN 27, Cr 1.43 - continue IV hydration: receiving KCl 10mEq in LR, 125cc/hr - oral meals and hydration as tolerated - De La Fuente catheter placed: 800cc of urine released upon catheterization, so patient was retaining - cause unknown but could be related to gabapentin, otherwise neuropathic retention; plan to hold gabapentin for now - Follow with telemetry - Avoid nephrotoxic agents - Renal dosing where needed - Renal US findings: R kidney 11.9cm, L kidney 10.9cm, unremarkable per radiologist impression Present on Admission?: Yes (2) Acute UTI: Plan: Patient with UTI. She is afebrile, HD stable and non-toxic in appearance. Possibly contributing to her lower abdominal pain. - pending urine culture results - Ceftriaxone 2gm IV daily started last 05/25/24 night in ED, continue for suspected UTI while awaiting UCx - de la fuente catheter in place, track Intake and Output Present on Admission?: Yes (3) Hypokalemia: Plan: 05/25/24: K=3.3. Possibly secondary to poor oral intake -Patient has been given 40meq PO thus far -Will continue repletion with caution given MARIPOSA - 10mEq KCl to be placed in 2L LR maintenance fluid -Repeat BMP in AM 05/26/24: resolving, K = 3.5 Present on Admission?: Yes (4) Hypomagnesemia: Plan: Magnesium significantly low at 1. Has received 2gm thus far. Uncertain if this is secondary to poor oral intake. Patient is also on Protonix 40mg po BID. -Continue Magnesium supplementation -Will order 3 additional grams (Total 5gm) -Repeat Magnesium level in AM - RESOLVED as of 05/26/24 AM - 2.4 Present on Admission?: Yes (5) Bipolar 1 disorder, depressed: Plan: Patient reports stable moods, well controlled on below home medications: -Continue Trazodone 100mg po qHS -Continue Topamax 100mg po TID -Continue Seroquel 300mg po qHS and 25mg po BID -Continue Lamictal - will REDUCE dose from 200mg po BID to 100mg po BID for now given renal compromise -Continue Buspar 20mg po TID -Continue Bupropion 150mg po BID Present on Admission?: Yes (6) Hypothyroid: Plan: TSH is low at 0.041 with normal T4 at 1.44 -Continue Synthroid 125mcg po daily - consider decreasing to 112.5mcg PO daily considering intermittent palpitations Present on Admission?: Yes (7) Diabetes mellitus with diabetic neuropathy: Plan: diabetes type 2 well controlled on metformin: A1C 5.6 on 03/24/24 - holding PO meds -> ISS for glucose control Present on Admission?: Yes (8) Hyponatremia: Plan: 131, down from baseline around 140 - consider repleting Plan Chronic Medical Conditions: GERD - chronic -Continue Protonix -Will change to 40mg IV BID Constipation - patient reports that she takes linzess as needed for her IBS-C. She takes it approximately 3x weekly with good results -Continue Linzess PRN Hypothyroidism - chronic. TSH is low at 0.041 with normal T4 -Continue Synthroid 125mcg po daily Diabetes - well controlled. Patient is on Metformin. Last OvwM0C=6.6 on 03/24/24 -Hold oral agents -ISS Hyperlipidemia - chronic -Continue Atorvastatin Admission and Anticipated Discharge Date Admission Date: May 25, 2024 Supervising Physician Co-Signing Physician Notes ATTESTATION I also saw the patient and confirmed diaz portions of the history and exam. I agree with the impression and plan in the resident documentation, and as summarized below. Patient seen this morning. She is sleeping but awakens to voice. She reports having very minimal urine output since admission. As noted previously, she had noted a several week history of generalized abdominal pain, which became more localized to the lower abdominal/suprapubic area. The urinary burning/dysuria was a rather new symptom, over the last couple of days. She has had a UTI in the past, and this seems different. She slightly denies having any excessive loose stools/watery diarrhea. She does sound to have a history of IBS for which she occasionally takes Linzess. Basically it sounds as if her bowels have been per normal. EXAM 109/64, 73, 16, 36.8, 97% on room air She is pleasant. Alert. Heart regular rate and rhythm Respirations nonlabored Abdomen soft and nontender. Some very mild tenderness in the suprapubic and lower quadrants. No rebound or guarding. DATA Labs WBC 4.1, hemoglobin 11.8, platelet count 129 Sodium 131, potassium 3.5, UN 27, creatinine 1.43 TSH 0.041, free T4 1.44 Imaging Admission imaging reviewed. Normal renal ultrasound completed today Micro Urine culture collected 05/25/2024 is pending IMPRESSION & PLAN MARIPOSA, uncertain etiology, perhaps secondary to decreased p.o. intake, perhaps obstructive De La Fuente to better measure her urine output; based on exam, I suspect she is needing to void Decided to check renal ultrasound; this has been completed and is normal as above Await urine culture Continue IV fluids and monitor BMP Decrease Synthroid to 112 mcg; will need repeat TSH and free T4 in about 6-8 weeks. Hold gabapentin; Even though it is a low dose, symptoms started about the time this was added to her medical regimen. Additional per resident documentation Subjective Patient was seen at bedside this morning, not appearing in acute distress. Endorses she has been feeling tired, weak, and with little appetite for the past 3 weeks. Unable to produce significant urine for 3-4 days, with no urinary urgency but endorses burning sensation to urethra and across her lower abdomen. Denies any vaginal discharge or blood, states she has not had a bowel movement in 2 days. Also endorses lower back pain and neck pain that are chronic, has history of cervical discectomy and lumbar facet arthropathy with spinal stenosis. Currently on gabapentin for neuropathy. Additionally, pt had her levothyroxine increased last month from 100mcg to 125mcg, her current dose. Denies any fever, body aches, chills, sweats, nausea, vomiting dizziness. Review of Systems Review of Systems: All systems reviewed & are unremarkable except as noted in HPI & below Physical Exam Constitutional: WD/WN, vitals as above well developed, well nourished and + obese Eyes: PERRL, conjunctivae normal, anicteric sclerae Neck: trachea midline, no thyromegaly Respiratory: normal respiratory effort mild crackles to auscultation of b/l lower lung garcia, otherwise clear to auscultation Cardiovascular: RRR, no murmur, no edema Gastrointestinal (Abdomen): soft, normal bowel sounds, tender to palpation of lower abdomen / suprapubic region abdominal skin: vertical healed midline surgical scar extending inferiorly from umbilicus Musculoskeletal: no cyanosis or clubbing, extremities motor strength 5/5 Skin: no rashes, warm and dry Psychiatric: A+Ox3, euthymic affect Genitourinary: R > L CVA tenderness Results & Data Results & Data Vital Signs (Past 12 Hours) Vital Signs Temp Pulse Pulse Pulse Resp BP BP 05/26/24 07:49 36.5 C 66 20 113/70 05/26/24 07:40 75 05/26/24 03:37 37.2 C 74 16 130/76 05/26/24 02:04 71 05/26/24 01:32 05/26/24 01:32 37.0 C 79 18 132/80 05/26/24 00:33 92 H 20 120/67 05/26/24 00:12 76 20 121/64 05/25/24 23:36 67 23 118/81 05/25/24 23:03 71 19 111/82 05/25/24 22:33 76 18 141/78 H 05/25/24 22:00 65 18 120/72 05/25/24 21:40 68 05/25/24 20:41 36.2 C L 90 20 151/74 H Pulse Ox O2 Del Method 05/26/24 07:49 94 Room Air 05/26/24 07:40 05/26/24 03:37 97 Room Air 05/26/24 02:04 05/26/24 01:32 Room Air 05/26/24 01:32 96 Room Air 05/26/24 00:33 96 05/26/24 00:12 95 05/25/24 23:36 96 05/25/24 23:03 95 05/25/24 22:33 98 05/25/24 22:00 96 Room Air 05/25/24 21:40 05/25/24 20:41 95 Room Air Laboratory Results Abnormal lab results 05/25/24 05/25/24 05/26/24 Range/Units 21:19 Unknown 06:01 RBC 3.95 L (4.20-5.40) M/uL Hgb 11.8 L (12.0-16.0) g/dl Hct 34.8 L (37.0-47.0) % Plt Count 129 L (130-400) K/uL Sodium 132 L 131 L (136-145) mmol/L Potassium 3.3 L (3.5-5.1) mmol/L Chloride 91 L 95 L (98-107) mmol/L Anion Gap 13 H (3-11) BUN 31 H 27 H (6-23) mg/dl Creatinine 2.11 H 1.43 H D (0.6-1.2) mg/dl Calcium 8.2 L (8.6-10.3) mg/dl Magnesium 1.0 L (1.7-2.4) mg/dl Total Bilirubin 1.3 H (0.2-1.0) mg/dl Globulin 2.3 L (2.5-4.0) gm/dl Albumin/Globulin Ratio 2.1 H (0.9-2) TSH 0.041 L (0.300-4.500) uIu/ml Urine Appearance Cloudy A (Clear) Urine Protein Trace H (Negative) Urine Ketones Trace H (Negative) Ur Leukocyte Esterase Trace H (Negative) Urine WBC (Auto) 6-10 H (0-5) /hpf U Hyaline Cast (Auto) >20 H (0-2) /lpf U Epithel Cells (Auto) 11-20 H (0-2) /hpf Urine Bacteria (Auto) 3+ H (None Seen) Calcium Oxalate Crystal Present A (None Prsent) Hyaline Casts Present A (None Presnt) /lpf Urine Mucus Present A (None Prsent) Diagnostic Findings Renal US, 05/26/24, 12pm: Right kidney: 11.9 cm. No hydronephrosis. Normal corticomedullary differentiation and cortical thickness. Left kidney: 0.9 cm. No hydronephrosis. Normal corticomedullary differentiation and cortical thickness. Bladder: No bladder wall thickening. The bilateral ureteral jets were identified. IMPRESSION: Normal renal ultrasound. Resident Activity Tracking Resident Involvement: Resident Care Provided Care Provided: Adult [facility] (6) Hypothyroid Hypothyroidism type: unspecified Qualified Code(s): E03.9 - Hypothyroidism, unspecified (7) Diabetes mellitus with diabetic neuropathy Diabetes mellitus penitentiary insulin use: without extermination supervisor use Diabetes mellitus type: type 2 Qualified Code(s): E11.40 - Type 2 diabetes mellitus with diabetic neuropathy, unspecified
[2024-05-26] MEDS: PANTOprazole 40 MG TAB PO SCH (08:41)
[2024-05-26] MEDS: QUEtiapine FUMARATE 25 MG TABLET PO SCH (08:41)
[2024-05-26] MEDS: buPROPion SR 150 MG TABCR PO SCH (08:42)
[2024-05-26] MEDS: lamoTRIgine 100 MG TAB PO SCH (08:42)
[2024-05-26] MEDS: ATORVASTATIN 40 MG TAB PO SCH (08:42)
[2024-05-26] MEDS: TOPIRAMATE 100 MG TAB PO SCH (08:42)
[2024-05-26] MEDS: busPIRone 5 MG TAB PO SCH (08:43)
[2024-05-26] MEDS: FLUTICASONE/VILANTEROL 100/25MCG 14 PUFFS/INHALER INH SCH (08:43)
[2024-05-26] MEDS: INSULIN ASPART PER UNIT CHARGE SC SCH (09:28)
[2024-05-26] MEDS: ACETAMINOPHEN 325 MG TAB PO PRN (09:55)
[2024-05-26] MEDS ORDERED: POTASSIUM CHLORIDE / WTR 10 MEQ/100 ML PLCT IV SCH (10:15)
[2024-05-26 13:07] LABS: Creatinine Urine Random 26.4 mg/dl
[2024-05-26] MEDS: LIDOCAINE 5% 1 PATCH TD STA (13:21)
--- NOTE | 2024-05-26 13:39 | Electrocardiogram Report ---
Test Reason : Blood Pressure : */* mmHG Vent. Rate : 67 BPM Atrial Rate : 67 BPM P-R Int : 164 ms QRS Dur : 110 ms QT Int : 428 ms P-R-T Axes : -6 -29 12 degrees QTcB Int : 452 ms Normal sinus rhythm Low voltage QRS Possible Anterolateral infarct (cited on or before 22-Nov-2020) Abnormal ECG Confirmed by Shekhar Pierce ([id number] on 05/26/2024 1:39:06 PM Referred By: REFERRED SELF Confirmed By: Shekhar Pierce
--- NOTE | 2024-05-26 15:07 | Ultrasound Report ---
RENAL ULTRASOUND HISTORY: MARIPOSA, decreased urine output COMPARISON: CT 05/25/2024 FINDINGS: Right kidney: 11.9 cm. No hydronephrosis. Normal corticomedullary differentiation and cortical thickn ess. Left kidney: 0.9 cm. No hydronephrosis. Normal corticomedullary differentiation and cortical thicknes s. Bladder: No bladder wall thickening. The bilateral ureteral jets were identified. IMPRESSION: Normal renal ultrasound. ACT 112: Negative or not required by law. Electronically signed by: Christiano Tatum M.D. 05/26/2024 3:06 PM
[2024-05-26] MEDS: TAMSULOSIN HCL 0.4 MG CAP PO ONE (17:01)
[2024-05-26] MEDS: PHENAZOPYRIDINE HCL 200 MG TAB PO STA (17:01)
[2024-05-26] MEDS: SODIUM CHLORIDE 0.9% 1,000 ML IV SCH (19:04)
[2024-05-26] MEDS: MoRPHine SULFATE 2 MG/ML CARP IV STA (19:23)
[2024-05-26] MEDS ORDERED: GABAPENTIN 300 MG CAP PO SCH (21:00)
[2024-05-26] MEDS: cefTRIAXone SODIUM 2,000 MG/50 ML BAG IV SCH (21:02)
[2024-05-26] MEDS: ASPIRIN 81 MG ECTAB PO SCH (21:03)
[2024-05-26] MEDS: MELATONIN 3 MG TAB PO SCH (21:06)
[2024-05-26] MEDS: QUEtiapine FUMARATE 300 MG TABLET PO SCH (21:07)
[2024-05-26] MEDS: traZODone HCL 100 MG TAB PO SCH (21:09)
[2024-05-27 06:17] LABS: Hemoglobin 12.8 g/dl (12.0-16.0); Mean Corpuscular Hemoglobin 30.4 pg (25.0-34.0); Mean Corpuscular Hgb Conc 33.7 g/dL (32.0-36.0); Mean Corpuscular Volume 90.3 fL (80.0-100.0); Platelet Count 143 K/uL (130-400); RDW Coefficient of Variation 12.8 % (11.5-14.5); RDW Standard Deviation 42.4 fL (36.4-46.3); Red Blood Count 4.21 M/uL (4.20-5.40); White Blood Count 4.01 K/ul (4.8-10.8)
[2024-05-27] MEDS: MoRPHine SULFATE 2 MG/ML CARP IV STA (06:25)
[2024-05-27 06:28] LABS: BUN Creatinine Ratio 16.7 (10-20); Calcium 9.2 mg/dl (8.6-10.3); Creatinine Clr Calc Pharmacy 84.3 ml/min; Est GFR (African American) 91.8 ml/min; Est GFR (Non-African American) 79.2 ml/min; Potassium 3.7 mmol/L (3.5-5.1)
--- NOTE | 2024-05-27 06:48 | Hospitalist Progress Note ---
Date of Service May 27, 2024 Assessment & Plan (1) Acute UTI: Plan: Patient with 3+ bacteriuria from UA yesterday. Continues to be afebrile, HD stable and non-toxic in appearance. Possibly contributing to her lower abdominal pain. - still awaiting urine culture results - discontinued Ceftriaxone 2gm IV - de la fuente catheter was removed yesterday shortly after 800cc urine was released due to significant burning pain and discomfort - produced 200cc urine in "hat" over toilet today - 200mg pyridium for pain q8 prn; 1mg morphine IV q4 for pain Urology consult ordered: significant burning pain exacerbated by de la fuente placement, evaluate for urethral stricture vs infection vs irritation, as well as urinary retention with less urgency than expected plus mild stress incontinence (2) MARIPOSA (acute kidney injury): Plan: kidney markers continue to resolve: BUN 13, Cr 0.78 GFR: 79.2 today, up from 38 yesterday appears to be resolved (3) Hypokalemia: Plan: potassium 3.7 today, appears stable - IV fluids have been discontinued - encouraging PO meals and liquids (4) Hypomagnesemia: Plan: RESOLVED as of yesterday at 2.4; today 2.0 (5) Bipolar 1 disorder, depressed: Plan: Patient reports stable moods, well controlled on below home medications: -Continue Trazodone 100mg po qHS -Continue Topamax 100mg po TID -Continue Seroquel 300mg po qHS and 25mg po BID -Continue Lamictal - will REDUCE dose from 200mg po BID to 100mg po BID for now given renal compromise -Continue Buspar 20mg po TID -Continue Bupropion 150mg po BID (6) Hypothyroid: Plan: TSH is low at 0.041 with normal T4 at 1.44 -Continue Synthroid 125mcg po daily - consider decreasing to 112.5mcg PO daily considering intermittent palpitations (7) Diabetes mellitus with diabetic neuropathy: Plan: diabetes type 2 well controlled on metformin: A1C 5.6 on 03/24/24 - holding PO meds -> ISS for glucose control (8) Hyponatremia: Plan: 142 today, around baseline around 140 - IV fluid have been discontinued - encourage PO meals and fluids Plan Chronic Medical Conditions: GERD - chronic -Continue Protonix -Will change to 40mg IV BID Constipation - patient reports that she takes linzess as needed for her IBS-C. She takes it approximately 3x weekly with good results -Continue Linzess PRN Hypothyroidism - chronic. TSH is low at 0.041 with normal T4 -Continue Synthroid 125mcg po daily Diabetes - well controlled. Patient is on Metformin. Last CmdZ7F=4.6 on 03/24/24 -Hold oral agents -ISS Hyperlipidemia - chronic -Continue Atorvastatin Admission and Anticipated Discharge Date Admission Date: May 25, 2024 Supervising Physician Co-Signing Physician Notes ATTESTATION I also saw the patient and confirmed diaz portions of the history and exam. I agree with the impression and plan in the resident documentation, and as summarized below. The De La Fuente insertion yesterday was quite painful for the patient; she had recalled having a De La Fuente years ago and had no difficulties. It sounds as if it was quite painful and difficult inserting, and she had quite a bit of pain post insertion and ultimately it was removed. However, before it was removed, 800 cc of urine was drained. The patient did not feel as if she had to urinate prior to the De La Fuente. Since that time, she has had a couple trips to the bathroom where she is urinated "a little." Similar to yesterday, location of her tenderness seems to be suprapubic. With palpation there today, she is a little bit less tender/less distended than yesterday. EXAM 98/62, 64, 18, 37 C, 96% on room air She is pleasant. Alert. Heart regular rate and rhythm Respirations nonlabored Some mild tenderness in the suprapubic and lower quadrants. No rebound or guarding. DATA Labs CBC unremarkable Renal function normalized at BUN 13, creatinine 0.78 TSH 0.041, free T4 1.44 Imaging Renal ultrasound completed yesterday was unremarkable Micro Urine culture collected 05/25/2024 shows no growth IMPRESSION & PLAN MARIPOSA, Resolved (question obstructive uropathy) Acute urinary retention Hold gabapentin Consult urology Discontinue IV fluid Discontinue ceftriaxone Hypothyroidism, Biochemically oversupplemented Synthroid was decreased to 112 mcg Will need repeat TSH and free T4 as outpatient in 6 to 8 weeks Additional per resident documentation Subjective Patient was seen at bedside this morning, received 2mg IV morphine last night and 1mg this morning. Not currently appearing in acute distress but notes that her suprapubic abdomen and urethra are burning more since de la fuente placement yesterday, notably 800cc urine came out. Pt endorses was it excruciating even after placement, was in so much pain she was in tears, her was there at the time too and was upset about how much pain pt was in. RN ended up removing the de la fuente. Today pt has been able to produce about 200cc urine on toilet, notes that there is less of a "hard lump" in her lower abdomen compared to yesterday, explained that it is because of the 800mL of urine retained yesterday. For pain management, patient has been taking 200mg pyridium q8 as needed but denies it is relieving pain much. Denies Tylenol 650mg has been helping much either. 1mg IV morphine q6 prn has been ordered. Notes she still has not had any bowel movements for 2 days, took her linzess with her morning meds. Urology consult has been placed as patient seems to have degrees of urinary retention, stress incontinence, and possible urethral stricture due to extreme pain and burning with de la fuente placement. Denies any fever, body aches, chills, sweats, nausea, vomiting dizziness. Review of Systems Review of Systems: All systems reviewed & are unremarkable except as noted in HPI & below Physical Exam Constitutional: WD/WN, vitals as above well developed, well nourished and + obese Eyes: PERRL, conjunctivae normal, anicteric sclerae Neck: trachea midline, no thyromegaly Respiratory: normal respiratory effort, lungs clear to auscultation Cardiovascular: RRR, no murmur, no edema Gastrointestinal (Abdomen): Inspection/Auscultation: normal bowel sounds Percussion/Palpation: + abdomen tender and abdomen soft tender to palpation of suprapubic abdomen Musculoskeletal: no cyanosis or clubbing, extremities motor strength 5/5 Skin: no rashes, warm and dry Psychiatric: A+Ox3, euthymic affect Results & Data Results & Data Vital Signs (Past 12 Hours) Vital Signs Temp Pulse Pulse Resp BP Pulse Ox O2 Del Method 05/27/24 02:41 36.6 C 72 18 104/68 95 Room Air 05/26/24 22:35 36.6 C 79 18 94/57 L 92 Room Air 05/26/24 21:34 76 05/26/24 19:32 36.9 C 64 16 113/72 93 Room Air (6) Hypothyroid Hypothyroidism type: unspecified Qualified Code(s): E03.9 - Hypothyroidism, unspecified (7) Diabetes mellitus with diabetic neuropathy Diabetes mellitus jail insulin use: without termite exterminator use Diabetes mellitus type: type 2 Qualified Code(s): E11.40 - Type 2 diabetes mellitus with diabetic neuropathy, unspecified
[2024-05-27] MEDS: linaCLOtide 72 MCG CAPSULE PO PRN (08:28)
[2024-05-27] MEDS: TAMSULOSIN HCL 0.4 MG CAP PO SCH (08:29)
[2024-05-27] MEDS: PHENAZOPYRIDINE HCL 200 MG TAB PO PRN (10:31)
[2024-05-27] MEDS ORDERED: MoRPHine SULFATE 2 MG/ML CARP IV PRN ×2 (14:31→15:12)
--- NOTE | 2024-05-27 15:00 | Urology Consultation ---
Date of Consultation May 27, 2024 Assessment & Plan (1) Acute UTI: (2) Urinary retention: Plan 68 year old female with history of DM, GERD, Hypothyroidism and chronic pain who presented to the ED with diffuse abdominal pain, difficulty urinating, dysuria and nausea and is admitted to medicine service with acute UTI and MARIPOSA. Urology has been consulted for obstructive uropathy/urinary retention. Afebrile and hemodynamically stable. Labs today show wbc 4.01, hemoglobin 12.8, creatinine 0.78 (was 2.11 on admission). Urine culture prelim no growth. CT A/P - No obstructing stone or hydronephrosis. Bladder was unremarkable and did not appear distended. Renal US reviewed - No hydronephrosis or bladder wall thickening. Clifford catheter placed yesterday but removed due to severe pain/dysuria - 800cc of urine had drained from the catheter prior to removal. She has been voiding spontaneously today (small amounts per her report). We discussed urinary retention in detail. We discussed multiple potential causes including atonic bladder, pelvic floor dysfunction or musculoskeletal dysfunction, constipation, urinary tract infection, stricture, or other. We discussed behavioral modifications that could help such as timed voiding and double voiding. We discussed the role for clean intermittent catheterization or indwelling Clifford catheter. We did discuss that a cystoscopy could be useful in determining why she is having urinary retention/incomplete emptying issues. Plan: Recommend continuing to monitor ability to void. Encourage double voiding. Would recommend checking bladder scan/PVRs to ensure she is emptying. She would prefer to avoid catheterization again if possible. Follow culture and treat if indicated per sensitivities. Continue Flomax and PRN Pyridium. We discussed outpatient cystoscopy, she declines. She would prefer to schedule the cystoscopy under anesthesia. Will arrange an outpatient follow-up to discuss/arrange cystoscopy under anesthesia. Patient agreeable to plan, all questions were answered. Urology to follow peripherally. Please call with any further questions or concerns. History of Present Illness Attending Physician: Malachi Gonzalez DO History of Present Illness 68 year old female with history of DM, GERD, Hypothyroidism and chronic pain who presented to the ED with diffuse abdominal pain, difficulty urinating, dysuria and nausea and is admitted to medicine service with acute UTI and MARIPOSA. Urology has been consulted for obstructive uropathy/urinary retention. CT abdomen pelvis- 1. Fluid in the colon is suggestive of diarrheal state. Possible enteritis. No small bowel obstruction. 2. Punctate nonobstructing right renal stone. No hydronephrosis or obstructing ureteral stone. Renal ultrasound- Normal renal ultrasound, No hydronephrosis, No bladder wall thickening. Patient seen at bedside today. Awake, resting in bed on arrival. No acute distress. Patient reports significant pain and dysuria with Clifford placement yesterday. Due to her pain, the catheter was ultimately removed. There was 800cc of urine drained from the catheter. She has been voiding today. She reports voiding small amounts. Still with some dysuria. No hematuria. She also endorses lower abdominal discomfort. Denies f/c/n/v. Allergies Allergy/AdvReac Type Severity Reaction Status Date / Time pollen extracts Allergy Intermediate ITCHY Verified 05/25/24 23:48 EYES, RUNNY NOSE, SNEEZING No Known Drug Allergies Allergy Unknown Unknown Verified 05/25/24 23:48 Home Medications Medication Instructions Recorded Confirmed Type multivitamin 1 tab PO QAM 12/02/19 05/25/24 History trazodone 100 mg tablet 100 mg PO HS 11/16/20 05/25/24 History cholecalciferol (vitamin D3) 25 25 mcg PO QAM 11/22/20 05/25/24 History mcg (1,000 unit) capsule (Vitamin D3) cyanocobalamin (vitamin B-12) 1,000 mcg PO QAM 11/22/20 05/25/24 History 1,000 mcg tablet (Vitamin B-12) vitamin A 2,400 mcg capsule 8,000 unit PO QAM 11/22/20 05/25/24 History bupropion HCl 150 mg tablet,12 hr 150 mg PO BID #60 ea 01/22/21 05/25/24 Rx sustained-release (Wellbutrin SR) albuterol sulfate 2.5 mg/3 mL 2.5 mg (3 mL) inhalation QID PRN 08/28/22 05/25/24 Rx (0.083 %) solution for nebulization shortness of breath or wheezing #90 mL nebulizer accessories #1 ea 08/28/22 05/25/24 Rx topiramate 100 mg tablet 100 mg PO TID 11/14/22 05/25/24 History lamotrigine 100 mg tablet 200 mg PO BID 04/02/23 05/25/24 History quetiapine 300 mg tablet 300 mg PO HS 04/02/23 05/25/24 History aspirin 81 mg tablet,delayed 81 mg PO HS 06/27/23 05/25/24 History release albuterol sulfate 90 mcg/actuation 2 puff inhalation Q6H PRN 10/09/23 05/25/24 Rx aerosol inhaler shortness of breath or wheezing #6.7 grams buspirone 10 mg tablet 20 mg PO TID 11/17/23 05/25/24 History melatonin 5 mg capsule 10 mg PO HS 11/19/23 05/25/24 History atorvastatin 40 mg tablet 40 mg PO QAM #90 tabs 01/12/24 05/25/24 Rx pantoprazole 40 mg tablet,delayed 40 mg PO BID #180 tabs 03/05/24 05/25/24 Rx release fluticasone furoate 100 1 inh inhalation DAILY PRN 03/09/24 05/25/24 History mcg-vilanterol 25 mcg/dose Shortness Of Breath inhalation powder (Breo Ellipta) semaglutide 2 mg/dose (8 mg/3 mL) 2 mg (0.75 mL) subcut Q7D #3 mL 04/12/24 05/25/24 Rx subcutaneous pen injector furosemide 20 mg tablet (Lasix) 40 mg (2 x 20 mg) PO QAM #90 tabs 04/30/24 05/25/24 Rx metformin 1,000 mg tablet 1,000 mg PO BID #180 tabs 04/30/24 05/25/24 Rx tramadol 50 mg tablet 50 mg PO BID #60 tabs 04/30/24 05/25/24 Rx azelastine 137 mcg (0.1 %) nasal 2 spray intranasal BID PRN 05/03/24 05/25/24 Rx spray congestion #30 mL fluticasone propionate 50 2 spray intranasal BID PRN 05/03/24 05/25/24 Rx mcg/actuation nasal allergies #16 grams spray,suspension (Flonase Allergy Relief) gabapentin 300 mg capsule 300 mg PO .COMPLEX #90 caps 05/03/24 05/25/24 Rx quetiapine 25 mg tablet 25 mg PO BID 05/03/24 05/25/24 History levothyroxine 125 mcg tablet 125 mcg PO DAILYBB 05/25/24 05/25/24 History linaclotide 72 mcg capsule 72 mcg PO DAILY PRN Diarrhea 05/25/24 05/25/24 History meloxicam 15 mg tablet 15 mg PO QDL 05/25/24 05/25/24 History potassium chloride 10 mEq 20 meq PO QAM 05/25/24 05/25/24 History tablet,extended release(part/cryst) Patient History Medical History Hx of bronchitis second week 10/2023, recently put on abx 11/17/23 "because symptoms weren't resolving" Influenza A (~08/28/22) hx Morbid obesity with BMI of 40.0-44.9, adult Nausea and vomiting after administration of anesthetic agent "only happened once" History of kidney stones History of esophageal dilatation COVID-19 (11/16/20) diagnosed x2---middle of Sep 2021 via HOME TEST ONLY--head cold symptoms/sinus issues--no symptoms now 11/16/20--had pneumonia--had to be admitted to [facility] for 1 week on supplemental oxygen Surgical History History of colonoscopy History of total hysterectomy with bilateral salpingo-oophorectomy (BSO) History of cervical discectomy normal ROM History of total right knee replacement (TKR) History of total left knee replacement (TKR) History of tooth extraction History of wisdom tooth extraction History of esophagogastroduodenoscopy (EGD) History of bilateral cataract extraction History of cardiac cath "over 20yrs ago" @ [facility]--no stents; no cardio. History of lymph node biopsy per pt for sarcoidosis diagnosis Hx of tubal ligation S/P appendectomy History of cholecystectomy Family History Aunt Breast cancer, Onset Age: 50 Father Myocardial infarction, Onset Age: 50 Dementia Mother Lung cancer Lung disease Father Depression Heart disease Parkinson disease Sister Anxiety Daughter , age 34 Accidental overdose Other No family history of adverse response to anesthesia Denies family history of Ovarian cancer Prostate cancer Colorectal cancer Social History Smoking Status: Never smoker Second Hand Exposure: Yes (hx as child); Do You Dip or Chew Tobacco: No; Hx Alcohol Use: No Hx Substance Use: No Preferred Language: Icelandic Communication Ability: Effective Visual Impairment: Partially Limited Hearing Ability: Normal [employer] Required: No Beliefs That Will Affect Care: None marital status: Current Living Situation: Significant Other Current Living Situation Comment: home with current occupational status: disabled Other Information That Helps Us Care for You: No Feels Safe at Home: Yes Safety Concerns: Feels Safe At This Time Childhood Exposure to Second-Hand Smoke: Yes Diet: regular Diet Comment: Regular caffeine: Yes (1 to 2 cups coffee daily) during the past year weight has: remained stable Dental Care, Regularly: No Physical Activity Frequency: 3-4 Times per Week Physical Activity Frequency Comment: walking-limited by physical condition Seatbelt Use: always Sunscreen Use: Yes Assistive Devices: Glasses Review of Systems Review of Systems: All systems reviewed & are unremarkable except as noted in HPI & below Physical Exam Constitutional: no acute distress Respiratory: no respiratory distress and no labored breathing Musculoskeletal: Head/Neck/Chest: normocephalic Skin: No visible rashes or lesions to exposed skin areas Neurologic: moves all extremities and awake Psychiatric: A+Ox3, euthymic affect Results & Data Vital Signs (Past 12 Hours) Vital Signs Temp Pulse Pulse Resp BP Pulse Ox O2 Del Method 05/27/24 11:27 37.0 C 64 18 98/62 L 96 Room Air 05/27/24 07:54 36.9 C 81 18 107/69 93 Room Air 05/27/24 07:30 Room Air 05/27/24 07:00 80 PG Care Time/CCT Total # of Minutes Spent Total Time Spent with Patient: Total time spent is greater than 50% in coordination of care (as documented) at patient's floor/unit and/or counseling patient: Coding Level of Care Code 97641 INT INP/OBS CARE 2/55MIN Diagnoses Acute UTI N39.0 Urinary retention R33.9
--- NOTE | 2024-05-28 06:44 | Discharge Summary ---
Date of Service May 28, 2024 Admission HPI Per Admitting Provider Pearl Crouch is a 68yo female with history of DM, GERD, Hypothyroidism and chronic pain presenting from home with ongoing abdominal pain. Patient reports she has had diffuse abdominal discomfort for a while. However, over the last day she has had worsening of lower abdominal discomfort - she reports it as a burning and cramping pain. She reports normal bowel movements - no diarrhea or blood. She has been having difficulty urinating over the last 2-3 days - she reports minimal urine output despite trying to drink increased fluids. This evening she developed dysuria and nausea with dry heaving as well. In the ER she is afebrile, HD stable and non-toxic ER Course: NSS x 500mL KCl 40mEq PO Ceftriaxone 2gm IV Magnesium x 2gm Tylenol x 1gm Admission Exam Per Admitting Provider General: patient resting comfortably, NAD, non-toxic in appearance, AA&O x 4 Skin: warm, dry, intact, no rashes or lesions HEENT: NC/AT, PERRL, EOMI, anicteric sclera, conjunctiva without injection, external ear normal to inspection and nontender, nares patent, moist mucus membranes, dentition intact, no oropharyngeal lesions, neck supple, trachea midline, no LAD, no thyromegaly, no JVD Heart: +S1/S2, regular, no m/r/g Lungs: equal air entry bilaterally, no rales/rhonchi/wheezes Abd: +BS, soft, ND, lower abdominal tenderness to palpation with some voluntary guarding, no masses/organomegaly/ascites Ext: warm, 2+ pulses in UE/LE bilaterally, no clubbing/cyanosis or edema Neuro: nonfocal, patient AA&O x 4, speech intact, no facial droop, moving all extremities on command with equal strength 5/5 Principal Diagnosis urinary retention Discharge Exam Constitutional WD/WN, vitals as above well developed, well nourished and + obese Eyes PERRL, conjunctivae normal, anicteric sclerae Neck trachea midline, no thyromegaly Respiratory normal respiratory effort, lungs clear to auscultation Cardiovascular RRR, no murmur, no edema Gastrointestinal (Abdomen) Inspection/Auscultation: normal bowel sounds Percussion/Palpation: + abdomen tender and abdomen soft tender to palpation of abdomen, particularly suprapubic region with palpable bladder Musculoskeletal no cyanosis or clubbing, extremities motor strength 5/5 Skin no rashes, warm and dry Neurologic patellar DTR's 2+ bilat, sensation intact Psychiatric A+Ox3, euthymic affect Discharge Data Allergies Allergy/AdvReac Type Severity Reaction Status Date / Time pollen extracts Allergy Intermediate ITCHY Verified 05/25/24 23:48 EYES, RUNNY NOSE, SNEEZING No Known Drug Allergies Allergy Unknown Unknown Verified 05/25/24 23:48 Consultations 05/25/24 23:11 ED Decision to Admit Stat 05/27/24 12:22 Consult Urology Routine Procedures Performed De La Fuente catheterization, 05/26/24 - removed same day due to significant burning pain Ordered Studies 05/25/24 22:08 CT abd pelvis wo con Stat 05/26/24 12:38 US Kidney Bladder [US renal/blad retro comp] Routine Hospital Course (1) Acute UTI: Patient with 3+ bacteriuria from UA 05/26/24. Continues to be afebrile, HD stable and non-toxic in appearance. Possibly contributing to her lower abdominal pain. - still awaiting urine culture results - was given Ceftriaxone 2gm IV for suspected UTI which has since been discontinued - de la fuente catheter was removed yesterday shortly after 800cc urine was released due to significant burning pain and discomfort - 05/27/24: produced 200cc urine in "hat" over toilet - 200mg pyridium for pain q8 prn; 1mg morphine IV q4 for pain 05/27/24: Urology consult: pt did not want catheterization and urology understanding of pt's request, plan to evaluate for urethral stricture vs infection vs irritation, as well as urinary retention as an outpatient. - outpatient urology appointment to have cystoscopy under anesthesia (2) MARIPOSA (acute kidney injury): 05/25/24: creatinine of 2.11 and BUN in 30s - was given IV fluids for suspected dehydration as reason for anuria 05/26/24: de la fuente catheterization which let out about 800cc of urine 05/27/24: kidney markers resolve: BUN 13, Cr 0.78 GFR: 79.2 today, up from 38 yesterday - patient able to produce 200cc urine from overnight and morning in "hat" over toilet - flomax 0.4mg started for persistent urinary retention 05/28/24: creatinine down to 0.67, BUN 8 - appears to be resolved - to follow up with urology outpatient (3) Hypokalemia: 05/27/24: 3.7 today, appears stable - IV fluids have been discontinued - encouraging PO meals and fluids 05/28/24: 3.8 - encouraging meals and fluids (4) Hypomagnesemia: 05/25/24: Mg 1.0 - given Mg for repletion with IV fluids 05/26/24: up to 2.3, resolved 05/27/24: 2.0, appears stable (5) Bipolar 1 disorder, depressed: Patient reports stable moods, well controlled on below home medications: -Continue Trazodone 100mg po qHS -Continue Topamax 100mg po TID -Continue Seroquel 300mg po qHS and 25mg po BID -Continue Lamictal - will REDUCE dose from 200mg po BID to 100mg po BID for now given renal compromise -Continue Buspar 20mg po TID -Continue Bupropion 150mg po BID (6) Hypothyroid: TSH is low at 0.041 with normal T4 at 1.44 - Continued Synthroid 125mcg po daily (7) Diabetes mellitus with diabetic neuropathy: diabetes type 2 well controlled on metformin: A1C 5.6 on 03/24/24 - holding PO meds -> ISS for glucose control (8) Hyponatremia: 05/25/24: 138, given IV fluids and encouraged to eat meals 05/27/24: 142 today, around baseline of 140 - IV fluid have been discontinued - encourage PO meals and fluids Plan Chronic Medical Conditions: GERD - chronic -Continue Protonix -Will change to 40mg IV BID Constipation - patient reports that she takes linzess as needed for her IBS-C. She takes it approximately 3x weekly with good results -Continue Linzess PRN Hypothyroidism - chronic. TSH is low at 0.041 with normal T4 -Continue Synthroid 125mcg po daily Diabetes - well controlled. Patient is on Metformin. Last [id number]=7.6 on 03/24/24 -Hold oral agents -ISS Hyperlipidemia - chronic -Continue Atorvastatin Total Time Total Time Spent Total Time Spent (In Minutes): 35 Total Time Includes: Examination of the Patient, Discharge Planning and Medication Reconciliation Discharge Plan Discharge Items Patient Disposition: Home - Self-Care Reason For Visit: DEHYDRATION, ELECTROLYTE ABNORMALITIES, UTI Discharge Diagnosis: urinary retention Condition on Discharge: Fair Activity: Per Instructions section Non-emergency contact: Primary Care Provider Call non-emergency contact if: you have any medication questions and your symptoms worsen Follow-up/Referrals: Jennifer Peng DO [Primary Care Provider] - 06/09/24 10:20 am Diet: Carb Consistent or DM2 Addtl Attending Provider Instructions: You came to [facility] ED on 05/25/24 for abdominal pain and 2-3 days of inability to urinate. It was found with blood work that your kidneys were suffering with a creatinine level of 2.11 (high) which we consider Acute Kidney Injury, as there was likely urine backed up due to lack of outflow. Additionally there was bacteria in your urine, which is common when it is not able to leave the bladder. You were started on IV antibiotics and given IV fluids and admitted to the medical floor with telemetry monitoring. It was not initially seen that your bladder was retaining a significant amount of urine, but when de la fuente catheter was placed on 05/26/24 it let out about 800mL of urine, meaning that you were retaining close to a liter of urine in your bladder, despite being able to urinate small amounts prior to the catheterization. You were given as needed pain medication including 1-2mg of morphine and 650mg Tylenol as needed. Since you had such a painful experience with the De La Fuente placement, you had it removed that same day despite the medical team wanting to know how your kidneys are functioning by way of urine output. The next day, your kidney labs were significantly improved (creatinine 0.78, normal) were seen by urology the next day 05/27/24 and you decided with them that you would not get the De La Fuente again since it was such a terrible experience, but you were started on tamsulosin (Flomax) and given pyridium for urinary pain management and scheduled to follow up with urology as an outpatient to have a cystoscopy (urethra and bladder scope) done while under anesthesia. Your IV antibiotic was stopped since it was likely a result of the retained urine which was allowed to be drained. Your creatinine continues to stay low today (05/28/24) at 0.67 and your electrolytes are all in normal range except for chloride, which is slightly elevated at 111. Although bladder scans show under 10mL of urine, you are likely still retaining more than we can see, so you will follow up with urology outpatient as well as your PCP Dr. Peng next week. Continue eating and drinking well, and try to "double void" when you can, meaning go to the bathroom to urinate and then a couple minutes later try again so you aren't retaining as much. Your gabapentin was discontinued during your hospital stay due to it being a possible contributor to your urinary retention. This medication is on hold until 06/09/24, which is when your appointment with your PCP, Dr. Peng, is scheduled. Please discuss either continuing or discontinuing this medication, as well as whether you will continue the Flomax and pyridium (you will be prescribed Azo, as this one is covered by your insurance) that you have been started on. May also defer Flomax and Azo prescription to outpatient urology since they are part of their field of expertise. Additionally, please follow up with your psychiatrist for general well-being and to discuss your ongoing medication regimen for bipolar 1 disorder. Pending Studies at Discharge: No Stand-Alone Forms: My [facility], Smoking Cessation Medications and DC Order Prescriptions: New tamsulosin 0.4 mg Capsule 0.4 mg PO QAM Qty: 10 0RF phenazopyridine [Azo Urinary Pain Relief] 95 mg tablet 95 mg PO Q8H PRN (Reason: pain) Qty: 30 0RF Rx Instructions: can take once every 8 hours as needed for pain with urination Continued quetiapine 25 mg tablet 25 mg PO BID Rx Instructions: morning and afternoon bupropion HCl [Wellbutrin SR] 150 mg tablet sustained-release 12 hr 150 mg PO BID Qty: 60 2RF albuterol sulfate 90 mcg/actuation HFA aerosol inhaler 2 puff inhalation Q6H PRN (Reason: shortness of breath or wheezing) Qty: 6.7 1RF atorvastatin 40 mg tablet 40 mg PO QAM Qty: 90 1RF pantoprazole 40 mg tablet,delayed release (DR/EC) 40 mg PO BID Qty: 180 0RF semaglutide 2 mg/dose (8 mg/3 mL) pen injector 2 mg subcut Q7D Qty: 3 2RF Rx Instructions: MONDAYS furosemide [Lasix] 20 mg tablet 40 mg PO QAM Qty: 90 1RF Patient Comments: patient decreased herself metformin 1,000 mg tablet 1,000 mg PO BID Qty: 180 1RF tramadol 50 mg tablet 50 mg PO BID Qty: 60 0RF azelastine 137 mcg (0.1 %) spray,non-aerosol 2 spray INTNAS BID PRN (Reason: congestion) Qty: 30 1RF Rx Instructions: Administer into each nostril fluticasone propionate [Flonase Allergy Relief] 50 mcg/actuation spray,suspension 2 spray INTNAS BID PRN (Reason: allergies) Qty: 16 1RF multivitamin Tablet 1 tab PO QAM trazodone 100 mg tablet 100 mg PO HS (DME) nebulizer accessories Kit See Rx Instructions .Route Qty: 1 0RF Rx Instructions: As directed albuterol sulfate 2.5 mg /3 mL (0.083 %) solution for nebulization 2.5 mg inhalation QID PRN (Reason: shortness of breath or wheezing) Qty: 90 2RF Rx Instructions: DX ASTHMA topiramate 100 mg tablet 100 mg PO TID fluticasone furoate-vilanterol [Breo Ellipta] 100-25 mcg/dose blister with device 1 inh inhalation DAILY PRN (Reason: Shortness Of Breath) vitamin A 8,000 unit Capsule 8,000 unit PO QAM cyanocobalamin (vitamin B-12) [Vitamin B-12] 1,000 mcg Tablet 1,000 mcg PO QAM cholecalciferol (vitamin D3) [Vitamin D3] 25 mcg (1,000 unit) Capsule 25 mcg PO QAM lamotrigine 100 mg tablet 200 mg PO BID quetiapine 300 mg tablet 300 mg PO HS aspirin 81 mg tablet,delayed release (DR/EC) 81 mg PO HS buspirone 10 mg tablet 20 mg PO TID melatonin 5 mg Capsule 10 mg PO HS levothyroxine 125 mcg tablet 125 mcg PO DAILYBB linaclotide 72 mcg capsule 72 mcg PO DAILY PRN (Reason: Diarrhea) meloxicam 15 mg tablet 15 mg PO QDL potassium chloride 10 mEq tablet,ER particles/crystals 20 meq PO QAM Held gabapentin 300 mg capsule 300 mg PO .COMPLEX Qty: 90 0RF Hold Instructions: Resume on 06/01/24. continue NOT taking gabapentin until you meet with your PCP, Dr. Peng, to discuss next week. Rx Instructions: 300 mg PO QHS x 1 week; 1 cap PO BID x 1 week; then 1 cap PO TID; Discharge Orders: Discharge Order (Routine); Ordered 05/28/24 Ordered By: Davon Caballero/Other Patient Handouts: Treating Bipolar Disorder, Acute Kidney Failure Dc, Taking Medicine for Diabetes Admission Data Admit Date/Time: 05/25/24 23:39 Attending Provider: Ariadne Oviedo Admit Provider: Roxie Juaregui Primary Care Provider: Jennifer Peng Other Providers: Roxie Jauregui; Blake Lozoya Other Interventions: Discharge Summary Assessment (RN) Last Done: 05/28/24 15:15 Supervising Physician Co-Signing Physician Notes I personally examined the patient and verified diaz points of history and exam, discussed case, and agree with decision making and plan documented by Dr. Huynh. Patient on exam for acute urinary retention with MARIPOSA. MARIPOSA resolved. Patient has been able to void appropriately, remains on bladder scans, understands importance of following up with urology for consideration of cystoscopy under anesthesia for concerns of possible anatomic dysfunction. Urine culture with mixed organisms, low counts, antibiotics have been stopped. Patient appears comfortable, lungs clear b/l to auscultation, regular rate and rhythm, no abdominal tenderness, no acute distress. Patient was discharged on Pyridium and tamsulosin. We reviewed signs of urinary retention and reasons to seek medical attention. Resident Activity Tracking Resident Involvement: Resident Care Provided Care Provided: Adult Hospital Medicine
--- NOTE | 2024-05-28 06:45 | Hospitalist Progress Note ---
Date of Service May 28, 2024 Assessment & Plan (1) Acute UTI: Plan: Patient with 3+ bacteriuria from UA yesterday. Continues to be afebrile, HD stable and non-toxic in appearance. Possibly contributing to her lower abdominal pain. - still awaiting urine culture results - discontinued Ceftriaxone 2gm IV - de la fuente catheter was removed yesterday shortly after 800cc urine was released due to significant burning pain and discomfort - produced 200cc urine in "hat" over toilet today - 200mg pyridium for pain q8 prn; 1mg morphine IV q4 for pain Urology consult ordered: significant burning pain exacerbated by de la fuente placement, evaluate for urethral stricture vs infection vs irritation, as well as urinary retention with less urgency than expected plus mild stress incontinence (2) MARIPOSA (acute kidney injury): Plan: kidney markers continue to resolve: BUN 13, Cr 0.78 GFR: 79.2 today, up from 38 yesterday appears to be resolved (3) Hypokalemia: Plan: potassium 3.7 today, appears stable - IV fluids have been discontinued - encouraging PO meals and liquids (4) Hypomagnesemia: Plan: RESOLVED as of yesterday at 2.4; today 2.0 (5) Bipolar 1 disorder, depressed: Plan: Patient reports stable moods, well controlled on below home medications: -Continue Trazodone 100mg po qHS -Continue Topamax 100mg po TID -Continue Seroquel 300mg po qHS and 25mg po BID -Continue Lamictal - will REDUCE dose from 200mg po BID to 100mg po BID for now given renal compromise -Continue Buspar 20mg po TID -Continue Bupropion 150mg po BID (6) Hypothyroid: Plan: TSH is low at 0.041 with normal T4 at 1.44 -Continue Synthroid 125mcg po daily - consider decreasing to 112.5mcg PO daily considering intermittent palpitations (7) Diabetes mellitus with diabetic neuropathy: Plan: diabetes type 2 well controlled on metformin: A1C 5.6 on 03/24/24 - holding PO meds -> ISS for glucose control (8) Hyponatremia: Plan: 142 today, around baseline around 140 - IV fluid have been discontinued - encourage PO meals and fluids Plan Chronic Medical Conditions: GERD - chronic -Continue Protonix -Will change to 40mg IV BID Constipation - patient reports that she takes linzess as needed for her IBS-C. She takes it approximately 3x weekly with good results -Continue Linzess PRN Hypothyroidism - chronic. TSH is low at 0.041 with normal T4 -Continue Synthroid 125mcg po daily Diabetes - well controlled. Patient is on Metformin. Last [id number]=4.6 on 03/24/24 -Hold oral agents -ISS Hyperlipidemia - chronic -Continue Atorvastatin Admission and Anticipated Discharge Date Admission Date: May 25, 2024 Subjective Patient was seen at bedside this morning, received 2mg IV morphine last night and 1mg this morning. Not currently appearing in acute distress but notes that her suprapubic abdomen and urethra are burning more since de la fuente placement yesterday, notably 800cc urine came out. Pt endorses was it excruciating even after placement, was in so much pain she was in tears, her was there at the time too and was upset about how much pain pt was in. RN ended up removing the de la fuente. Today pt has been able to produce about 200cc urine on toilet, notes that there is less of a "hard lump" in her lower abdomen compared to yesterday, explained that it is because of the 800mL of urine retained yesterday. For pain management, patient has been taking 200mg pyridium q8 as needed but denies it is relieving pain much. Denies Tylenol 650mg has been helping much either. 1mg IV morphine q6 prn has been ordered. Notes she still has not had any bowel movements for 2 days, took her linzess with her morning meds. Urology consult has been placed as patient seems to have degrees of urinary retention, stress incontinence, and possible urethral stricture due to extreme pain and burning with de la fuente placement. Denies any fever, body aches, chills, sweats, nausea, vomiting dizziness. Results & Data Results & Data Vital Signs (Past 12 Hours) Vital Signs Temp Pulse Pulse Resp BP Pulse Ox O2 Del Method 05/28/24 02:25 37.0 C 68 18 105/65 92 Room Air 05/27/24 22:15 37.1 C 71 18 111/66 91 Room Air 05/27/24 22:00 71 05/27/24 19:08 37.1 C 84 18 108/63 93 Room Air (6) Hypothyroid Hypothyroidism type: unspecified Qualified Code(s): E03.9 - Hypothyroidism, unspecified (7) Diabetes mellitus with diabetic neuropathy Diabetes mellitus type: type 2 Diabetes mellitus ferry terminal agent insulin use: without detention use Qualified Code(s): E11.40 - Type 2 diabetes mellitus with diabetic neuropathy, unspecified
[2024-05-28 07:11] LABS: Basophils # (auto) 0.03 K/uL (0.00-0.20); Basophils % (auto) 0.6 %; Eosinophils # (auto) 0.21 K/uL (0.00-0.50); Eosinophils % (auto) 4.2 %; Hematocrit (blood only) 37.4 % (37.0-47.0); Hemoglobin 12.4 g/dl (12.0-16.0); Immature Granulocytes # (auto) 0.01 K/uL (0.01-0.20); Immature Granulocytes % (auto) 0.2 %; Lymphocytes # (auto) 1.72 K/uL (1.20-3.40); Lymphocytes % (auto) 34.4 %; Mean Corpuscular Hemoglobin 29.7 pg (25.0-34.0); Mean Corpuscular Hgb Conc 33.2 g/dL (32.0-36.0); Mean Corpuscular Volume 89.5 fL (80.0-100.0); Mean Platelet Volume 11.1 fL (9.4-12.4); Monocytes # (auto) 0.59 K/uL (0.11-0.59); Monocytes % (auto) 11.8 %; Neutrophils # (auto) 2.44 K/uL (1.40-6.50); Neutrophils % (auto) 48.8 %; Platelet Count 157 K/uL (130-400); RDW Standard Deviation 42.5 fL (36.4-46.3); Red Blood Count 4.18 M/uL (4.20-5.40)
[2024-05-28 07:29] LABS: BUN Creatinine Ratio 11.9 (10-20); Calcium 9.3 mg/dl (8.6-10.3); Creatinine Clr Calc Pharmacy 98.4 ml/min; Est GFR (African American) 106.2 ml/min; Est GFR (Non-African American) 91.6 ml/min; Potassium 3.8 mmol/L (3.5-5.1)
[2024-05-28 08:11] VITALS: PULSE 65
[2024-05-28 11:32] VITALS: RESP 18; TEMP 98.6; O2SAT 92
[2024-05-28 13:41] VITALS: BP 106/74
== END 2024-05-28 15:27 | disposition home or self-care (01) | DRG 683 ==
LOC: ED 20:39 → SUATTDRO 23:39 → 2N 23:39
DX: E66.9 Obesity, unspecified; N17.9 Acute kidney failure, unspecified; Z68.35 Body mass index [BMI] 35.0-35.9, adult; F31.9 Bipolar disorder, unspecified; Z79.899 Other long term (current) drug therapy; E11.40 Type 2 diabetes mellitus with diabetic neuropathy, unspecified; E87.1 Hypo-osmolality and hyponatremia; K21.9 Gastro-esophageal reflux disease without esophagitis; E03.9 Hypothyroidism, unspecified; E87.6 Hypokalemia; Z97.4 Presence of external hearing-aid; Z79.890 Hormone replacement therapy; G89.29 Other chronic pain; E83.42 Hypomagnesemia; Z79.82 Long term (current) use of aspirin; K59.00 Constipation, unspecified; Z86.16 Personal history of COVID-19; N39.0 Urinary tract infection, site not specified; Z79.84 Long term (current) use of oral hypoglycemic drugs

== ENCOUNTER 2025-01-14 05:52 | Inpatient (IN) ==
--- NOTE | 2025-01-03 11:45 | PAT Medication Instructions ---
Medication Instructions Date of Service January 03, 2025 Home Medications Medication Instructions Recorded nebulizer accessories #1 ea 08/28/22 atorvastatin 40 mg tablet 40 mg PO QAM #90 tabs 07/20/24 bupropion HCl 150 mg tablet,12 hr 150 mg PO BID #60 ea 09/17/24 sustained-release (Wellbutrin SR) lamotrigine 100 mg tablet 200 mg (2 x 100 mg) PO BID #120 09/17/24 tabs quetiapine 25 mg tablet 25 mg PO QID #120 tabs 09/17/24 trazodone 100 mg tablet 100 mg PO HS #90 tabs 09/17/24 metformin 1,000 mg tablet 1,000 mg PO BID #180 tabs 09/20/24 albuterol sulfate 90 mcg/actuation 2 puff inhalation Q6H PRN 09/24/24 aerosol inhaler shortness of breath or wheezing #6.7 grams furosemide 20 mg tablet (Lasix) 40 mg (2 x 20 mg) PO QAM #90 tabs 09/24/24 quetiapine 300 mg tablet 300 mg PO HS #90 tabs 10/12/24 buspirone 10 mg tablet 20 mg (2 x 10 mg) PO TID #540 tabs 11/16/24 albuterol sulfate 2.5 mg/3 mL 2.5 mg (3 mL) inhalation QID PRN 11/30/24 (0.083 %) solution for nebulization shortness of breath or wheezing #90 mL azelastine 137 mcg (0.1 %) nasal 2 spray intranasal BID PRN 11/30/24 spray congestion #30 mL fluticasone propionate 50 2 spray intranasal BID PRN 11/30/24 mcg/actuation nasal allergies #16 grams spray,suspension (Flonase Allergy Relief) tirzepatide 5 mg/0.5 mL 5 mg (0.5 mL) subcut .weekly #2 mL 12/10/24 subcutaneous pen injector (Mounjaro) hydrocodone 5 mg-acetaminophen 325 1 tab PO Q8H PRN pain #30 tabs 12/23/24 mg tablet multivitamin 1 tab PO QAM cholecalciferol (vitamin D3) 25 mcg (1,000 unit) capsule (Vitamin D3) 25 mcg PO QAM cyanocobalamin (vitamin B-12) 1,000 mcg tablet (Vitamin B-12) 1,000 mcg PO QAM vitamin A 2,400 mcg capsule 8,000 unit PO QAM melatonin 5 mg capsule 10 mg PO HS fluticasone furoate 100 mcg-vilanterol 25 mcg/dose inhalation powder (Breo Ellipta) 1 inh inhalation DAILY PRN atorvastatin 40 mg tablet 40 mg PO QAM bupropion HCl 150 mg tablet,12 hr sustained-release (Wellbutrin SR) 150 mg PO BID lamotrigine 100 mg tablet 200 mg (2 x 100 mg) PO BID quetiapine 25 mg tablet 25 mg PO QID trazodone 100 mg tablet 100 mg PO HS metformin 1,000 mg tablet 1,000 mg PO BID albuterol sulfate 90 mcg/actuation aerosol inhaler 2 puff inhalation Q6H PRN furosemide 20 mg tablet (Lasix) 40 mg (2 x 20 mg) PO QAM quetiapine 300 mg tablet 300 mg PO HS buspirone 10 mg tablet 20 mg (2 x 10 mg) PO TID aspirin 81 mg tablet,delayed release 81 mg PO HS potassium chloride 10 mEq tablet,extended release(part/cryst) 20 meq PO QAM albuterol sulfate 2.5 mg/3 mL (0.083 %) solution for nebulization 2.5 mg (3 mL) inhalation QID PRN azelastine 137 mcg (0.1 %) nasal spray 2 spray intranasal BID PRN fluticasone propionate 50 mcg/actuation nasal spray,suspension (Flonase Allergy Relief) 2 spray intranasal BID PRN tirzepatide 5 mg/0.5 mL subcutaneous pen injector (Mounjaro) 5 mg (0.5 mL) subcut .weekly hydrocodone 5 mg-acetaminophen 325 mg tablet 1 tab PO Q8H PRN levothyroxine 100 mcg tablet 100 mcg PO QAM linaclotide 290 mcg capsule 290 mcg PO QAM meloxicam 15 mg tablet 15 mg PO QPM nystatin 100,000 unit/gram topical cream 1 applic topical BID PRN pantoprazole 40 mg tablet,delayed release 40 mg PO BID tamsulosin 0.4 mg capsule (Flomax) 0.4 mg PO QPM STOP 7 days before surgery tirzepatide 5 mg/0.5 mL subcutaneous pen injector (Mounjaro) 5 mg (0.5 mL) subcut .weekly Continue as directed fluticasone furoate 100 mcg-vilanterol 25 mcg/dose inhalation powder (Breo Ellipta) 1 inh inhalation DAILY PRN(if needed) ASK your surgeon for instructions meloxicam 15 mg tablet 15 mg PO QPM ASK your prescriber and surgeon aspirin 81 mg tablet,delayed release 81 mg PO HS STOP taking 24 hours before surgery nystatin 100,000 unit/gram topical cream 1 applic topical BID PRN DO NOT take the morning of surgery multivitamin 1 tab PO QAM cholecalciferol (vitamin D3) 25 mcg (1,000 unit) capsule (Vitamin D3) 25 mcg PO QAM cyanocobalamin (vitamin B-12) 1,000 mcg tablet (Vitamin B-12) 1,000 mcg PO QAM vitamin A 2,400 mcg capsule 8,000 unit PO QAM metformin 1,000 mg tablet 1,000 mg PO BID furosemide 20 mg tablet (Lasix) 40 mg (2 x 20 mg) PO QAM potassium chloride 10 mEq tablet,extended release(part/cryst) 20 meq PO QAM linaclotide 290 mcg capsule 290 mcg PO QAM Take morning of surgery With a small sip of water, OTHERWISE NOTHING TO EAT OR DRINK AFTER MIDNIGHT: atorvastatin 40 mg tablet 40 mg PO QAM bupropion HCl 150 mg tablet,12 hr sustained-release (Wellbutrin SR) 150 mg PO BID lamotrigine 100 mg tablet 200 mg (2 x 100 mg) PO BID quetiapine 25 mg tablet 25 mg PO QID albuterol sulfate 90 mcg/actuation aerosol inhaler 2 puff inhalation Q6H PRN(use if needed; please bring with you to hospital day of surgery if possible) buspirone 10 mg tablet 20 mg (2 x 10 mg) PO TID albuterol sulfate 2.5 mg/3 mL (0.083 %) solution for nebulization 2.5 mg (3 mL) inhalation QID PRN(if needed) azelastine 137 mcg (0.1 %) nasal spray 2 spray intranasal BID PRN(if needed) fluticasone propionate 50 mcg/actuation nasal spray,suspension (Flonase Allergy Relief) 2 spray intranasal BID PRN(if needed) hydrocodone 5 mg-acetaminophen 325 mg tablet 1 tab PO Q8H PRN(if needed) levothyroxine 100 mcg tablet 100 mcg PO QAM pantoprazole 40 mg tablet,delayed release 40 mg PO BID Take evening before surgery melatonin 5 mg capsule 10 mg PO HS bupropion HCl 150 mg tablet,12 hr sustained-release (Wellbutrin SR) 150 mg PO BID lamotrigine 100 mg tablet 200 mg (2 x 100 mg) PO BID quetiapine 25 mg tablet 25 mg PO QID trazodone 100 mg tablet 100 mg PO HS metformin 1,000 mg tablet 1,000 mg PO BID albuterol sulfate 90 mcg/actuation aerosol inhaler 2 puff inhalation Q6H PRN(if needed) quetiapine 300 mg tablet 300 mg PO HS buspirone 10 mg tablet 20 mg (2 x 10 mg) PO TID albuterol sulfate 2.5 mg/3 mL (0.083 %) solution for nebulization 2.5 mg (3 mL) inhalation QID PRN(if needed) azelastine 137 mcg (0.1 %) nasal spray 2 spray intranasal BID PRN(if needed) fluticasone propionate 50 mcg/actuation nasal spray,suspension (Flonase Allergy Relief) 2 spray intranasal BID PRN(if needed) hydrocodone 5 mg-acetaminophen 325 mg tablet 1 tab PO Q8H PRN(if needed) pantoprazole 40 mg tablet,delayed release 40 mg PO BID tamsulosin 0.4 mg capsule (Flomax) 0.4 mg PO QPM Other Notes If you have any questions please call us at [phone] or [phone] or [phone] or [phone]
--- NOTE | 2025-01-03 14:31 | Anesthesiology Consultation ---
Date of Service January 03, 2025 Assessment & Plan (1) Encounter for pre-operative examination: - Check BSG DOS - Infectious disease screening: Per assessment on 01/03/25- No known recent infectious disease contacts or current infectious disease symptoms. - GLP-1 medication instructions: Patient informed by PAT to stop 7 days prior to surgery- voiced understanding. DOS 01/14/25. Advised last dose to be 01/03/25. - PCP visit (01/04/25): "Patient to be undergoing laparoscopic transforaminal lumbar interbody fusion with bilateral decompression 10 days from now. She has already had preoperative consultation with anesthesia with medication recommendations. Advised to stop aspirin 7 days prior to surgery. She is holding her Mounjaro at least a week before surgery. Reviewed patient's recent labs and chest x-ray from 6 months ago which all appeared to be within normal limits. Overall I think patient's chronic conditions are stable to proceed with surgery as scheduled.. Diabetes type 2, controlled.. very well controlled.. Very mild murmur noted on exam today. Reviewed last echo from 2019 showing LVEF 60 to 65% with some aortic valve sclerosis without stenosis, mitral valve thickening without stenosis. Trace mitral regurg. Plan to update echo this year.. Follow Up: 3-4 months" Chart Review Chart Review: Acceptable Risk for Surgery and Patient seen in Pre Admission Testing Teaching & Discussion Pre-Anesthesia Teaching/Discussion Notes: Instructed NPO after midnight before surgery,except medications with 15 cc of water. Medication instructions provided according to the PAT guidelines. History Surgery Operation Date: 01/14/25 07:30 Proposed Procedures p L5-S1 Transforaminal Lumbar Interbody Fusion, L3 Left Laminectomy with CT Navigation and Spinal Cord Monitoring - Meet Lechuga MD Height/Weight Height: 5 ft 6 in Weight: 92.5 kg Allergies Allergy/AdvReac Type Severity Reaction Status Date / Time pollen extracts Allergy Intermediate Itchy Verified 01/04/25 10:02 eyes, runny nose, sneezing No Known Drug Allergies Allergy Unknown Unknown Verified 01/04/25 10:02 Medications Home Medications Medication Instructions Recorded Confirmed Last Taken multivitamin 1 tab PO QAM 12/02/19 01/04/25 05/25/24 cholecalciferol (vitamin D3) 25 25 mcg PO QAM 03/03/21 04/15/25 09/03/24 mcg (1,000 unit) capsule (Vitamin D3) cyanocobalamin (vitamin B-12) 1,000 mcg PO QAM 11/22/20 01/04/25 05/25/24 1,000 mcg tablet (Vitamin B-12) vitamin A 2,400 mcg capsule 8,000 unit PO QAM 11/22/20 01/04/25 05/25/24 nebulizer accessories #1 ea 08/28/22 01/04/25 Unknown melatonin 5 mg capsule 10 mg PO HS 11/19/23 01/04/25 05/24/24 fluticasone furoate 100 1 inh inhalation DAILY PRN 03/09/24 01/04/25 Unknown mcg-vilanterol 25 mcg/dose Shortness Of Breath inhalation powder (Breo Ellipta) atorvastatin 40 mg tablet 40 mg PO QAM #90 tabs 07/20/24 01/04/25 Unknown bupropion HCl 150 mg tablet,12 hr 150 mg PO BID #60 ea 09/17/24 01/04/25 Unknown sustained-release (Wellbutrin SR) lamotrigine 100 mg tablet 200 mg (2 x 100 mg) PO BID #120 09/17/24 01/04/25 Unknown tabs quetiapine 25 mg tablet 25 mg PO QID #120 tabs 09/17/24 01/04/25 Unknown trazodone 100 mg tablet 100 mg PO HS #90 tabs 09/17/24 01/04/25 Unknown metformin 1,000 mg tablet 1,000 mg PO BID #180 tabs 09/20/24 01/04/25 Unknown albuterol sulfate 90 mcg/actuation 2 puff inhalation Q6H PRN 09/24/24 01/04/25 Unknown aerosol inhaler shortness of breath or wheezing #6.7 grams furosemide 20 mg tablet (Lasix) 40 mg (2 x 20 mg) PO QAM #90 tabs 09/24/24 01/04/25 Unknown quetiapine 300 mg tablet 300 mg PO HS #90 tabs 10/12/24 01/04/25 Unknown buspirone 10 mg tablet 20 mg (2 x 10 mg) PO TID #540 tabs 11/16/24 01/04/25 Unknown aspirin 81 mg tablet,delayed 81 mg PO HS 11/18/24 01/03/25 Unknown release potassium chloride 10 mEq 20 meq PO QAM 11/18/24 01/04/25 Unknown tablet,extended release(part/cryst) albuterol sulfate 2.5 mg/3 mL 2.5 mg (3 mL) inhalation QID PRN 11/30/24 01/04/25 Unknown (0.083 %) solution for nebulization shortness of breath or wheezing #90 mL azelastine 137 mcg (0.1 %) nasal 2 spray intranasal BID PRN 11/30/24 01/04/25 Unknown spray congestion #30 mL fluticasone propionate 50 2 spray intranasal BID PRN 11/30/24 01/04/25 Unknown mcg/actuation nasal allergies #16 grams spray,suspension (Flonase Allergy Relief) tirzepatide 5 mg/0.5 mL 5 mg (0.5 mL) subcut .weekly #2 mL 12/10/24 01/04/25 01/03/25 subcutaneous pen injector (Erick) hydrocodone 5 mg-acetaminophen 325 1 tab PO Q8H PRN pain #30 tabs 12/23/24 01/04/25 Unknown mg tablet levothyroxine 100 mcg tablet 100 mcg PO QAM 01/03/25 01/04/25 Unknown linaclotide 290 mcg capsule 290 mcg PO QAM Diarrhea 01/03/25 01/04/25 Unknown meloxicam 15 mg tablet 15 mg PO QPM 01/03/25 01/04/25 Unknown nystatin 100,000 unit/gram topical 1 applic topical BID PRN Rash 01/03/25 01/04/25 Unknown cream pantoprazole 40 mg tablet,delayed 40 mg PO BID 01/03/25 01/04/25 Unknown release tamsulosin 0.4 mg capsule (Flomax) 0.4 mg PO QPM 01/03/25 01/04/25 Unknown Past Medical History Medical History Allergy-induced asthma Bipolar 1 disorder, depressed Chronic constipation Cognitive complaints Memory impairment, under surveillance COVID-19 11/2020- PNA, [facility] admission x1 week on supplemental oxygen 09/2021 (home test)- head cold symptoms/sinus issues > resolved Diabetes mellitus with diabetic neuropathy Diabetes type 2, controlled GERD (gastroesophageal reflux disease) History of kidney stones Hypomagnesemia Hypothyroidism Insomnia Lumbar stenosis Memory loss Morbid obesity with BMI of 40.0-44.9, adult Osteoarthritis Sacroiliitis Sarcoidosis Stable, "in remission" Sensorineural hearing loss of both ears Urinary incontinence Urinary retention flomax daily Exercise / Class Metabolic Activity III < 4 Walking/Shop/Light housework Past Family History Family History Aunt Breast cancer, Onset Age: 50 Father Myocardial infarction, Onset Age: 50 Dementia Mother Lung cancer Lung disease Father Depression Heart disease Parkinson disease Sister Anxiety Daughter , age 34 Accidental overdose Other No family history of adverse response to anesthesia Denies family history of Ovarian cancer Prostate cancer Colorectal cancer Past Surgical History Surgical History History of bilateral cataract extraction History of cardiac cath 20+ years ago ([facility])- no stents History of cervical discectomy + fusion History of cholecystectomy History of colonoscopy History of esophageal dilatation History of esophagogastroduodenoscopy (EGD) History of lymph node biopsy For sarcoidosis diagnosis History of tooth extraction History of total hysterectomy with bilateral salpingo-oophorectomy (BSO) History of total left knee replacement (TKR) History of total right knee replacement (TKR) History of wisdom tooth extraction Hx of tubal ligation Nausea and vomiting after administration of anesthetic agent Single episode S/P appendectomy Past Anesthesia History No Hx of Anesthesia Complications and No Family Hx of Anesthesia Complications History of PONV No Hx of Motion Sickness and History of PONV (Remote hx) Social History Smoking Status: Never smoker Do You Dip or Chew Tobacco: No Hx Alcohol Use: Yes alcohol intake frequency: holidays/special occasions only Hx Substance Use: No substance use type: does not use Review of Systems Patient denies chest pain, shortness of breath, fever, chills, cough, wheezing. Physical Exam Vital Signs BP 105/69 P 67 TEMP 98.3 SP02 95%RA RESP 16 Physical Full cervical extension range of motion. Full TMJ range of motion. TMD 3 finger breaths Mallampati Score II Dentition: missing molar Lungs: clear throughout to auscultation Cardiac: regular rate and rhythm Spine: normal Carotid arteries: negative bruit Extremities: no LE edema Lab Results Anesthesia Preop Results Results Anesthesia Widget: WBC 5.22 K/ul (4.8-10.8) 01/03/25 Hgb 12.6 g/dl (12.0-16.0) 01/03/25 Hct 37.8 % (37.0-47.0) 01/03/25 Plt 165 K/uL (130-400) 01/03/25 Na 139 mmol/L (136-145) 01/03/25 K 4.1 mmol/L (3.5-5.1) 01/03/25 Cl 107 mmol/L (98-107) 01/03/25 CO2 29 mmol/L (21-32) 01/03/25 BUN 16 mg/dl (6-23) 01/03/25 Creat 0.77 mg/dl (0.6-1.2) 01/03/25 Glucose Level 92 mg/dl (70-99(Fasting)) 01/03/25 HA1c 5.1 % (4.5-5.6) 01/03/25 Blood Type O Positive 01/03/25 Antibody Screen NEGATIVE 01/03/25 Testing Electrocardiogram Date: 07/30/24 Low voltage QRS. Septal infarct (cited on or before 11/22/2020 per [facility]). Chest X-Ray Date: 07/02/24 Findings: + NAD Echocardiogram Date: 12/28/19 EF 60 to 65%. Grade 1 diastolic dysfunction. No significant valvular disease. Borderline dilated ascending aorta at up to 3.5 cm. Left atrium appears enlarged. No regional wall motion abnormality. Other Testing Neck CTA Date: 07/30/24 IMPRESSION: Negative cervical CTA examination.
[2025-01-14] MEDS: LR 15ML/HR IV SCH (06:35)
[2025-01-14] MEDS: LR 60ML/HR IV SCH (06:43)
[2025-01-14] MEDS ORDERED: LIDOCAINE 2% 2 ML VIAL/AMP(20MG/ML) INFIL ONE ×2 (06:55→07:00)
[2025-01-14] MEDS ORDERED: MIDAZOLAM HCL 1 MG/ML 2ML VIAL ONE (06:55)
[2025-01-14] MEDS ORDERED: ONDANSETRON INJ 2 MG/ML 2 ML VIAL ONE (06:55)
[2025-01-14] MEDS ORDERED: DEXAMETHASONE SOD INJ 4 MG/ML VIAL ONE (06:55)
[2025-01-14] MEDS ORDERED: PROPOFOL IV EMULSION 10 MG/ML 20 ML VIAL IV ONE ×2 (06:55→08:08)
[2025-01-14] MEDS ORDERED: fentaNYL citrate PF 100 MCG/2 ML VIAL ONE ×2 (06:56→08:12)
[2025-01-14] MEDS ORDERED: ePHEDrine sulfate 50 MG/ML AMP IV PRN (06:59)
[2025-01-14] MEDS ORDERED: ONDANSETRON INJ 2 MG/ML 2 ML VIAL IV PRN ×2 (06:59→11:48)
[2025-01-14] MEDS ORDERED: PROMETHAZINE HCL 6.25 MG in SODIUM CHLORIDE 0.9% 50 ML IV PRN (06:59)
[2025-01-14] MEDS ORDERED: ATROPINE SULFATE 0.1 MG/ML 10ML SYR IV PRN (06:59)
[2025-01-14] MEDS ORDERED: SUCCINYLCHOLINE CHLORIDE 20 MG/ML 10 ML VIAL IV ONE (07:31)
[2025-01-14] MEDS ORDERED: PROPOFOL IV EMULSION 10 MG/ML 100 ML VIAL IV ONE ×2 (07:33→10:21)
--- NOTE | 2025-01-14 07:33 | History & Physical Bridge Note ---
Date of Service January 14, 2025 History & Physical Bridge Note I have examined the patient, reviewed the History & Physical and in the interval since the performance of the History & Physical I have noted the following changes of clinical significance: no changes noted Plan for L5-S1 TLIF, L3-4 decompression
[2025-01-14] MEDS ORDERED: PHENYLEPHRINE 100MCG/ML 5ML SYR ONE ×2 (07:42→09:08)
[2025-01-14] MEDS: ceFAZolin 2000MG 2,000 MG/15 ML SYR IV SCH ×2 (08:15→17:39)
[2025-01-14] MEDS ORDERED: ePHEDrine sulfate 50 MG/5 ML SYR ONE (08:38)
[2025-01-14] MEDS ORDERED: GLYCOPYRROLATE 0.2 MG/ML VIAL ONE ×2 (09:21)
[2025-01-14] MEDS ORDERED: NEOSTIGMINE METHYLSULFATE 1 MG/ML 10ML VIAL ONE (09:21)
[2025-01-14] MEDS: VANCOMYCIN HCL 1000MG/20ML VIAL ONE (09:55)
[2025-01-14] MEDS ORDERED: ALBUMIN HUMAN 5% 12.5 GM/250 ML VIAL IV ONE (10:44)
[2025-01-14] MEDS ORDERED: MoRPHine SULFATE 2 MG/ML CARP ONE (10:54)
[2025-01-14] MEDS: FLOSEAL HEMOSTATIC MATRIX 10ML TOP ONE (11:18)
[2025-01-14] MEDS: BUPIVACAINE 0.5 % 5 MG/1 ML MPF 30ML VIAL ONE (11:18)
--- NOTE | 2025-01-14 11:23 | Fluoroscopy Report ---
FL lumbar spine 2-3V CLINICAL HISTORY: L5-S1 TF LUMBAR INTERBODY FUSION COMPARISON STUDY: None FLUOROSCOPY TIME: 37 seconds FLUOROSCOPY IMAGES: 8 EXPOSURE DOSE: 25 mGy FINDINGS: Fluoroscopy was provided for L5-S1 metallic fusion. IMPRESSION: Intraoperative fluoroscopy. ACT 112: Negative or not required by law. Electronically signed by: Gerry Koenig M.D. 01/14/2025 11:21 AM
--- NOTE | 2025-01-14 11:36 | Post Operative Brief Note ---
PG Immediate Post Op with CF Date of Surgery January 14, 2025 Pre & Post Diagnosis Operation Date: 01/14/25 07:30 Pre-Op Diagnosis: Lumbosacral Radiculitis, Foraminal Stenosis of Lumbosacral region; Spondylolisthesis lumbosacral region; Lumbar stenosis with neurgenic claudication Post-Op Diagnosis: Lumbosacral Radiculitis, Foraminal Stenosis of Lumbosacral region; Spondylolisthesis lumbosacral region; Lumbar stenosis with neurgenic claudication I identified the patient and participated in the time-out.: Yes Procedure Operation Date: 01/14/25 07:30 Actual Procedures p L5-S1 Transforaminal Lumbar Interbody Fusion, L3 Laminectomy with CT Navigation and Spinal Cord Monitoring(Not Applicable) - Meet Lechuga MD Surgeon Meet Lechuga MD [employer]aper Photo Editor Arpan Smiley PA-C Estimated Blood Loss 250 Findings Consistent with Post-Op Diagnosis Specimens Specimen Description: No specimen per surgeon Drains Leon Drain (15fr) and Clifford Catheter Anesthesia Type General Complications none Disposition Disposition: Recovery Room
[2025-01-14] MEDS ORDERED: ALBUTEROL 0.083% NEBU SOLN 3 ML VIAL INH PRN (11:44)
[2025-01-14] MEDS ORDERED: FLUTICASONE/VILANTEROL 100/25MCG 14 PUFFS/INHALER INH PRN (11:44)
[2025-01-14] MEDS ORDERED: NON-FORMULARY MEDICATION (Tirzepatide [Mounjaro] 5 mg/0.5 mL pen injector) SQ SCH (11:45)
[2025-01-14] MEDS ORDERED: ONDANSETRON 4 MG OD TAB PO PRN (11:48)
[2025-01-14] MEDS ORDERED: hydrOXYzine HCl 25 MG TAB PO PRN (11:48)
[2025-01-14] MEDS ORDERED: diphenhydrAMINE Capsule 25 MG CAP PO PRN (11:48)
[2025-01-14] MEDS ORDERED: LORazepam 2 MG/1 ML VIAL IV PRN (11:48)
[2025-01-14] MEDS ORDERED: METOCLOPRAMIDE HCL INJ 5 MG/ML 2 ML VIAL IV PRN (11:48)
[2025-01-14] MEDS ORDERED: FAMOTIDINE 20 MG TAB PO PRN (11:48)
[2025-01-14] MEDS ORDERED: ALUMINUM/MAGNESIUM SUSP 30 ML UDC PO PRN (11:48)
[2025-01-14] MEDS ORDERED: NALOXONE HCL 0.4 MG/1 ML VIAL/CARP IV PRN (11:48)
[2025-01-14] MEDS ORDERED: SOD PHOSPHATE/SOD BIPHOSPHATE ENEMA 132 ML BTL PR PRN (11:48)
[2025-01-14] MEDS ORDERED: DO NOT ADMINISTER FLU VACCINE PRN (11:48)
[2025-01-14] MEDS ORDERED: PROMETHAZINE 12.5 MG/50.5 ML BAG IV PRN (11:48)
[2025-01-14] MEDS ORDERED: bisacodyL 10 MG SUPP PR PRN (11:48)
[2025-01-14] MEDS ORDERED: DO NOT ADMINISTER PNEUMOCOCCAL VACCINE PRN (11:48)
[2025-01-14] MEDS ORDERED: ACETAMINOPHEN 1,000 MG/100 ML VIAL IV PRN (11:48)
[2025-01-14] MEDS ORDERED: PHARMACY GLYCEMIC MGMT CONSULT PRN (11:53)
--- NOTE | 2025-01-14 11:56 | Operative Report ---
PG Post Operative Report Pre & Post Diagnosis Operation Date: 01/14/25 07:30 Pre-Op Diagnosis: Lumbosacral Radiculitis, Foraminal Stenosis of Lumbosacral region; Spondylolisthesis lumbosacral region; Lumbar stenosis with neurgenic claudication Post-Op Diagnosis: Lumbosacral Radiculitis, Foraminal Stenosis of Lumbosacral region; Spondylolisthesis lumbosacral region; Lumbar stenosis with neurgenic claudication I identified the patient and participated in the time-out.: Yes Procedure Operation Date: 01/14/25 07:30 Actual Procedures L5-S1 Transforaminal Lumbar Interbody Fusion with Posterolateral Fusion (83881) L5 Laminectomy and Facetectomy at Site of Interbody Fusion (44987) Insertion Interbody Device for Fusion L5-S1 (67984) Non-Segmental Pedicle Screw Instrumentation L5-S1 (24255) L3 Laminectomy with Medial Facetectomy (37466) Stereotactic CT Navigation for Spinal Instrumentation (60842) Allograft and Autograft for Spinal Fusion (89556, 26587) Implants: [employer], Modulex Screws Surgeon Meet Lechuga MD Furs Salesperson Arpan Smiley PA-C Estimated Blood Loss 250 Findings Consistent with Post-Op Diagnosis Fluids 2 L Crystalloid Specimens None Drains Leon Drain Anesthesia Type General Complications none Disposition Disposition: Recovery Room Indications Patient was met in the clinic preoperatively, she had had longstanding symptoms of left L5 radiculopathy as well as lumbar stenosis with neurogenic claudication. She had failed considerable conservative management including activity modification, epidural injections, as well as oral medications without improvement in symptoms. We discussed treatment options consisting of continued conservative care versus surgical intervention. After discussion of her preoperative symptoms discussed surgery in the form of transforaminal lumbar interbody fusion at L5-S1 as well as a decompressive laminectomy at L3. After thorough discussion of the risks and benefits patient elected to proceed with surgery, this is documented in her clinic note preoperative visit Description of Procedure Patient was met in the preoperative holding area, surgical site was marked and all questions were answered. Patient was brought to the operating room where general anesthesia was induced. SCDs placed for DVT prophylaxis, Clifford catheter placed and she was placed in the prone position on the Tacho spine table. All bony prominences were padded. Neuromonitoring leads were attached. She was then prepped and draped in the usual sterile fashion. Verbal timeout was performed identifying the patient by name date of and verifying the correct procedure. Small incision was made over the right PSIS joint and navigation pin was placed into the right pelvis. The [employer] O-arm was then brought in and intraoperative CT scan was performed. Images were uploaded to the Kimble navigation unit for intraoperative stereotactic guidance. Skin was incised from the L3-S1 lamina. Bovie electrocautery was used to dissect down to the lumbodorsal fascia. Fascia was split midline over the spinous processes from L3-S1. Subperiosteal with dissection was carried out to expose the lamina from L3 through the superior aspect of S1. The L5 transverse processes and the sacral ala were exposed bilaterally in the L5-S1 facet capsules stripped. Facet capsules at L3-4 and L4-5 were preserved. Using a navigated bur I created special effects specialist holes in the pedicles of L5 and S1 bilaterally. Then sequentially used a navigated awl and tap to cannulate pedicle screw tracks into the pedicles of L5 and S1 bilaterally. Using navigated screwdriver I then placed a 7.5 mm x 40 mm pedicle screws into the sacrum and 6.5 x 50 mm pedicle screws into L5. These were stimulated by neuromonitoring, no evidence of breach. Motors were run by neuromonitoring with no change from baseline. A repeat intraoperative CT scan was performed using the O-arm and images were uploaded to the in room viewer. I personally verified good position of the pedicle screws at L5 and S1 bilaterally with no evidence of breach. At this point I began the decompressive laminectomy at L5 for placement of interbody spacer. Decompression was greater than required for a standard transforaminal lumbar interbody fusion spacer given her severe foraminal stenos is. Hemilaminectomy at L5 was performed decompressing the traversing nerve root on the left. A complete L5-S1 facetectomy was then performed at the left side to decompress the exiting L5 nerve root. I then transected the ligamentum flavum between L5 and S1 on the left and in the midline to provide excellent central canal and lateral recess decompression. Pedicle screw based distractor was then placed onto the pedicle screws of L5 and S1 and slight distraction applied across the disc space. Nerve roots were protected using nerve root retractors by my congressional assistant, I then performed an annulotomy at the L5-S1 disc. I removed as much of the disc as possible using a series of mary lou, curettes, and rasp. The disc was completely removed and endplates were scraped of the cartilage. Rasp was used then to create bleeding bone at the endplates of L5 and S1 to encourage interbody fusion. Trial interbody spacer was placed into the disc space under fluoroscopic guidance. The trial was removed, I then used the bone harvested from laminectomy which was morselized for use as local autograft. This was mixed with allograft bone material and packed within the L5-S1 disc space to encourage interbody fusion. Medtronic PASSNFLY interbody spacer was then placed within the L5-S1 disc space and expanded under fluoroscopic guidance. Once I was satisfied with the position of the interbody spacer the pedicle screw distractors were removed. The L3 spinous process was removed with Leksell rongeur. Lamina was thinned with a high-speed bur at the L3 level. The remaining lamina was resected using Kerrison punch. The ligamentum flavum from L3-L4 was identified and removed completely to decompress the dura. I then used a Zachery elevator to protect the thecal sac, the medial L3-4 facet joints were undercut bilaterally with Kerrison punch to provide excellent decompression of the L3-4 disc space and traversing L4 nerve roots. I then decorticated the L5 transverse processes bilaterally as well as the sacral ala. The remaining L5-S1 facet joint on the right was also decorticated. This was packed with a mixture of allograft bone material and bone graft extenders to encourage the posterior lateral fusion at L5-S1. The tulip heads were then attached to the modular screw posts at L5 and S1. 40 mm rods were then placed within the tulip heads from L5-S1 bilaterally. Set screws were applied and final tightened. Final x-rays were obtained. Wound was thoroughly irrigated. Leon drain was placed subfascially exiting out through the skin. Fascia was closed with 0 strata fix suture, subcu layer was closed with 2-0 strata fix and roxann in the skin. Sterile dressing was applied, drain sutured in place. Patient was transferred in her hospital bed to PACU in stable condition. I attest to the content of the Intraoperative Record and any orders documented therein. Any exceptions are noted below.
[2025-01-14] MEDS: fentaNYL citrate PF 100 MCG/2 ML VIAL IV PRN (12:00)
[2025-01-14] MEDS: HYDROmorphone INJ 1 MG/ML SYRINGE IV PRN (12:43)
--- NOTE | 2025-01-14 13:33 | Anesthesiology Progress Note ---
Date of Service January 14, 2025 Anesthesia Post Procedure Vital Signs Vital Signs: Temp Pulse Pulse Resp BP BP Pulse Ox 01/14/25 13:15 79 12 105/59 L 95 01/14/25 13:05 36.4 C L 80 12 129/96 99 01/14/25 12:55 79 12 115/78 100 01/14/25 12:45 85 12 105/73 100 01/14/25 12:35 88 13 96/51 L 100 01/14/25 12:25 80 12 97/65 L 100 01/14/25 12:15 84 12 111/52 L 100 01/14/25 12:05 81 12 111/68 97 01/14/25 11:55 86 12 124/76 97 01/14/25 11:45 36.0 C L 89 16 122/77 93 01/14/25 06:09 37.1 C 72 20 127/64 95 O2 Del Method O2 Flow Rate 01/14/25 13:15 Nasal Cannula 2 01/14/25 13:05 Nasal Cannula 2 01/14/25 12:55 Oxymask 4 01/14/25 12:45 Oxymask 4 01/14/25 12:35 Oxymask 4 01/14/25 12:25 Oxymask 4 01/14/25 12:15 Oxymask 4 01/14/25 12:05 Oxymask 4 01/14/25 11:55 Oxymask 4 01/14/25 11:45 Oxymask 4 01/14/25 06:09 Room Air Pain Intensity Bilateral Back: Pain Intensity: 7 Transfer of Care Handoff Completed per policy Notes Mental Status: alert / awake / arousable and participated in evaluation Patient Amnestic to Procedure: Yes Nausea / Vomiting: adequately controlled Pain: adequately controlled Airway Patency, RR, SpO2: stable & adequate BP & HR: stable & adequate Hydration State: stable & adequate Anesthetic Complications: no major complications apparent and Pt Satisfied with anesthetic care
[2025-01-14] MEDS: QUEtiapine FUMARATE 25 MG TABLET PO SCH (13:53)
[2025-01-14] MEDS: busPIRone 5 MG TAB PO SCH (13:53)
[2025-01-14] MEDS: LACTATED RINGER'S 1,000 ML IV SCH (13:53)
[2025-01-14] MEDS: HYDROmorphone INJ 0.5 MG/0.5 ML SYR IV PRN (13:55)
--- NOTE | 2025-01-14 14:28 | Pharmacy Report ---
Pharmacy Glycemic Short Note 2 - Date of Service January 14, 2025 - Glycemic Short BSG Results (Last 24 hours): 01/14/25 01/14/25 06:13 11:49 POC Glucose 104 H 147 H OUTPATIENT ANTIDIABETIC REGIMEN: * metformin 1000mg BID * Mounjaro 5mg QWK * HbA1c 5.1% (01/03/25) ASSESSMENT: * Pearl is a 69 year old admitted status post spinal laminectomy/fusion POD #0 with a history of type 2 diabetes mellitus. Pharmacy has been consulted to assist with glycemic management while inpatient. * Preoperative BSG this AM within goal range, given 8mg IV dexamethasone preoperatively, BSGs prachi slightly, will given ~0.2 units/kg basal insulin to cover for steroid induced hyperglycemia. No ongoing steroids ordered at this time * NovoLog initiated at a weight based stress of 2 PLAN FOR INPATIENT GLYCEMIC CONTROL: * Hold outpatient oral diabetes medications * Basal insulin * Lantus 15 units SQ now x1 * Bolus insulin * NovoLog per scale ACHS or Q6hrs while NPO * Goal Range: Low 110 mg/dL - High 140 mg/dL * Correction Factor: 25 mg/dL/unit * Nutritional / Prandial insulin per carb ratio of 1 unit per 8 grams CHO consumed
[2025-01-14] MEDS: INSULIN ASPART PER UNIT CHARGE SC SCH (15:32)
[2025-01-14] MEDS: oxyCODONE/ACETAMINOPHEN 5mg/325mg TAB PO PRN (15:32)
[2025-01-14] MEDS: LANTUS PER UNIT CHARGE SC ONE (15:33)
--- NOTE | 2025-01-14 15:59 | Hospitalist Consultation ---
Date of Consultation January 14, 2025 Assessment & Plan (1) Lumbosacral radiculitis: (2) Diabetes type 2, controlled: (3) Bipolar 1 disorder, depressed: (4) Morbid obesity with BMI of 40.0-44.9, adult: (5) Hypothyroid: Plan #Lumbar radiculopathypostop. Per orthopedics. Follow-up basic metabolic panel and CBC in the morning. Multiple avenues of pain control have been ordered. #Type 2 diabetesvery well-controlled. Agree with patient regular diet is quite reasonable. I doubt any intervention will be needed for this. Follow. Insulins have been ordered #Hypothyroidcontinue levothyroxine #urinary retentionapparently has been a chronic problem, most recently in the office she was on Flomax, apparently gabapentin may have been considered as a culprit, but she was going to be seeing urology. Follow urine outputstraight cath as needed if necessary #bipolar/depressionHome meds have been ordered. Follow, reassurance, supportive care. #DVT prophylaxisPer primary service, currently SCDs. History of Present Illness Reason for Consultation: post op med management Requesting Physician: Dr Lechuga Attending Physician: Meet Lechuga MD History of Present Illness Postop from spine surgery. Feels cold but notes that she always feels cold. Has some pain in her back, had pain medication, but pain is starting to return. Notes that she has very well-controlled diabetes and would very much like to just have a regular dietnoting that whenever she has been in the hospital before the diabetic diet has not been what she would like. No shortness of breath. Does have a little bit of scratchy throat, but no dyspnea. Outpatient notes reviewed. Allergies Allergy/AdvReac Type Severity Reaction Status Date / Time pollen extracts Allergy Intermediate Itchy Verified 01/14/25 06:14 eyes, runny nose, sneezing No Known Drug Allergies Allergy Unknown Unknown Verified 01/14/25 06:14 Home Medications Medication Instructions Recorded Confirmed Type multivitamin 1 tab PO QAM 12/02/19 01/14/25 History cholecalciferol (vitamin D3) 25 25 mcg PO QAM 11/22/20 01/14/25 History mcg (1,000 unit) capsule (Vitamin D3) cyanocobalamin (vitamin B-12) 1,000 mcg PO QAM 11/22/20 01/14/25 History 1,000 mcg tablet (Vitamin B-12) vitamin A 2,400 mcg capsule 8,000 unit PO QAM 11/22/20 01/14/25 History nebulizer accessories #1 ea 08/28/22 01/06/25 Rx melatonin 5 mg capsule 10 mg PO HS 11/19/23 01/14/25 History fluticasone furoate 100 1 inh inhalation DAILY PRN 03/09/24 01/14/25 History mcg-vilanterol 25 mcg/dose Shortness Of Breath inhalation powder (Breo Ellipta) atorvastatin 40 mg tablet 40 mg PO QAM #90 tabs 07/20/24 01/14/25 Rx bupropion HCl 150 mg tablet,12 hr 150 mg PO BID #60 ea 09/17/24 01/14/25 Rx sustained-release (Wellbutrin SR) lamotrigine 100 mg tablet 200 mg (2 x 100 mg) PO BID #120 09/17/24 01/14/25 Rx tabs quetiapine 25 mg tablet 25 mg PO QID #120 tabs 09/17/24 01/14/25 Rx metformin 1,000 mg tablet 1,000 mg PO BID #180 tabs 09/20/24 01/14/25 Rx albuterol sulfate 90 mcg/actuation 2 puff inhalation Q6H PRN 09/24/24 01/14/25 Rx aerosol inhaler shortness of breath or wheezing #6.7 grams furosemide 20 mg tablet (Lasix) 40 mg (2 x 20 mg) PO QAM #90 tabs 09/24/24 01/14/25 Rx quetiapine 300 mg tablet 300 mg PO HS #90 tabs 10/12/24 01/14/25 Rx buspirone 10 mg tablet 20 mg (2 x 10 mg) PO TID #540 tabs 11/16/24 01/14/25 Rx aspirin 81 mg tablet,delayed 81 mg PO HS 11/18/24 01/14/25 History release potassium chloride 10 mEq 20 meq PO QAM 11/18/24 01/14/25 History tablet,extended release(part/cryst) albuterol sulfate 2.5 mg/3 mL 2.5 mg (3 mL) inhalation QID PRN 11/30/24 01/14/25 Rx (0.083 %) solution for nebulization shortness of breath or wheezing #90 mL azelastine 137 mcg (0.1 %) nasal 2 spray intranasal BID PRN 11/30/24 01/14/25 Rx spray congestion #30 mL fluticasone propionate 50 2 spray intranasal BID PRN 11/30/24 01/14/25 Rx mcg/actuation nasal allergies #16 grams spray,suspension (Flonase Allergy Relief) levothyroxine 100 mcg tablet 100 mcg PO QAM 01/03/25 01/14/25 History linaclotide 290 mcg capsule 290 mcg PO QAM Diarrhea 01/03/25 01/14/25 History meloxicam 15 mg tablet 15 mg PO QPM 01/03/25 01/14/25 History nystatin 100,000 unit/gram topical 1 applic topical BID PRN Rash 01/03/25 01/14/25 History cream pantoprazole 40 mg tablet,delayed 40 mg PO BID 01/03/25 01/14/25 History release tamsulosin 0.4 mg capsule (Flomax) 0.4 mg PO QPM 01/03/25 01/14/25 History hydrocodone 5 mg-acetaminophen 325 1 tab PO Q8H PRN pain #30 tabs 01/05/25 01/14/25 Rx mg tablet trazodone 100 mg tablet 100 mg PO HS #90 tabs 01/11/25 01/14/25 Rx tirzepatide 5 mg/0.5 mL 5 mg (0.5 mL) subcut .weekly #2 mL 01/13/25 01/14/25 Rx subcutaneous pen injector (Erick) Patient History Medical History Urinary retention flomax daily Urinary incontinence Sarcoidosis Stable, "in remission" Lumbar stenosis Insomnia Hypothyroidism Chronic constipation Allergy-induced asthma Diabetes mellitus with diabetic neuropathy GERD (gastroesophageal reflux disease) Sensorineural hearing loss of both ears Osteoarthritis Diabetes type 2, controlled Bipolar 1 disorder, depressed Sacroiliitis Memory loss Cognitive complaints Memory impairment, under surveillance Hypomagnesemia Morbid obesity with BMI of 40.0-44.9, adult History of kidney stones COVID-19 11/2020- PNA, [facility] admission x1 week on supplemental oxygen 09/2021 (home test)- head cold symptoms/sinus issues > resolved Surgical History Nausea and vomiting after administration of anesthetic agent Single episode History of esophageal dilatation History of colonoscopy History of total hysterectomy with bilateral salpingo-oophorectomy (BSO) History of cervical discectomy + fusion History of total right knee replacement (TKR) History of total left knee replacement (TKR) History of tooth extraction History of wisdom tooth extraction History of esophagogastroduodenoscopy (EGD) History of bilateral cataract extraction History of cardiac cath 20+ years ago ([facility])- no stents History of lymph node biopsy For sarcoidosis diagnosis Hx of tubal ligation S/P appendectomy History of cholecystectomy Family History Aunt Breast cancer, Onset Age: 50 Father Myocardial infarction, Onset Age: 50 Dementia Mother Lung cancer Lung disease Father Depression Heart disease Parkinson disease Sister Anxiety Daughter , age 34 Accidental overdose Other No family history of adverse response to anesthesia Denies family history of Ovarian cancer Prostate cancer Colorectal cancer Social History Smoking Status: Never smoker Second Hand Exposure: Yes (hx as child); Do You Dip or Chew Tobacco: No; Tobacco Cessation Education Requested by Patient: No Hx Alcohol Use: Yes Alcohol type: wine Hx Substance Use: No Preferred Language: Tunisian Communication Ability: Effective Visual Impairment: Partially Limited Hearing Ability: Normal Fur Dry Cleaner Required: No Beliefs That Will Affect Care: None marital status: Current Living Situation: Spouse Current Living Situation Comment: home with current occupational status: disabled Other Information That Helps Us Care for You: No Feels Safe at Home: Yes Safety Concerns: Feels Safe At This Time Childhood Exposure to Second-Hand Smoke: Yes Diet: regular Diet Comment: Regular caffeine: Yes (1 to 2 cups coffee daily) during the past year weight has: remained stable Dental Care, Regularly: No Physical Activity Frequency: 3-4 Times per Week Physical Activity Frequency Comment: walking-limited by physical condition Seatbelt Use: always Sunscreen Use: Yes Assistive Devices: Glasses Review of Systems Review of Systems: All systems reviewed & are unremarkable except as noted in HPI & below Physical Exam Physical Exam: In general she is awake and alert oriented pleasant fatigued but no distress. HEENT normocephalic atraumatic mucous membranes moist. Cardio is regular slightly distant. Lungs are clear to auscultation bilaterally no rales rhonchi or wheeze with good effort. Spine incision is dressed, no tracking of bruising erythema etc. Dressing appears to be clean dry and intact. Neuro shows cranial nerves II through XII be grossly intact gross motor and sensory intact. Skin without rashes pallor or icterus. Mental status shows good recent and remote recall normal mood and affect good judgment and insight. Results & Data Results & Data Vital Signs (Past 12 Hours) Vital Signs Temp Pulse Pulse Resp BP BP Pulse Ox 01/14/25 15:30 92 H 16 109/72 98 01/14/25 14:30 97.3 F L 77 16 90/55 L 95 01/14/25 14:02 97.3 F L 82 14 109/68 94 01/14/25 13:30 97.5 F L 85 14 119/74 100 01/14/25 13:15 79 12 105/59 L 95 01/14/25 13:05 97.5 F L 80 12 129/96 99 01/14/25 12:55 79 12 115/78 100 01/14/25 12:45 85 12 105/73 100 01/14/25 12:35 88 13 96/51 L 100 01/14/25 12:25 80 12 97/65 L 100 01/14/25 12:15 84 12 111/52 L 100 01/14/25 12:05 81 12 111/68 97 01/14/25 11:55 86 12 124/76 97 01/14/25 11:45 96.8 F L 89 16 122/77 93 01/14/25 06:09 98.8 F 72 20 127/64 95 O2 Del Method O2 Flow Rate 01/14/25 15:30 Nasal Cannula 2 01/14/25 14:30 Nasal Cannula 2 01/14/25 14:02 Nasal Cannula 2 01/14/25 13:30 Nasal Cannula 2 01/14/25 13:15 Nasal Cannula 2 01/14/25 13:05 Nasal Cannula 2 01/14/25 12:55 Oxymask 4 01/14/25 12:45 Oxymask 4 01/14/25 12:35 Oxymask 4 01/14/25 12:25 Oxymask 4 01/14/25 12:15 Oxymask 4 01/14/25 12:05 Oxymask 4 01/14/25 11:55 Oxymask 4 01/14/25 11:45 Oxymask 4 01/14/25 06:09 Room Air PG Care Time/CCT Total # of Minutes Spent Total Time Spent with Patient: Total time spent is greater than 50% in coordination of care (as documented) at patient's floor/unit and/or counseling patient: Coding Level of Care Code 49812 IN/OBS CONSULT LVL 4,60M Diagnoses Lumbosacral radiculitis M54.17 Diabetes type 2, controlled E11.9 Diabetes mellitus correction insulin use: without correction use Bipolar 1 disorder, depressed F31.9 Morbid obesity with BMI of 40.0-44.9, adult E66.01; Z68.41 Hypothyroidism, unspecified type E03.9 Hypothyroidism type: unspecified (2) Diabetes type 2, controlled Diabetes mellitus correction insulin use: without rat exterminator use (5) Hypothyroid Hypothyroidism type: unspecified Qualified Code(s): E03.9 - Hypothyroidism, unspecified
[2025-01-14] MEDS ORDERED: metFORMIN HCL 500 MG TAB PO SCH (21:00)
[2025-01-14] MEDS: KETOROLAC TROMETHAMINE 15 MG/ML VIAL IV PRN (21:03)
[2025-01-14] MEDS: lamoTRIgine 100 MG TAB PO SCH (21:13)
[2025-01-14] MEDS: buPROPion SR 150 MG TABCR PO SCH (21:14)
[2025-01-14] MEDS: ASPIRIN 81 MG ECTAB PO SCH (21:14)
[2025-01-14] MEDS: MELATONIN 3 MG TAB PO SCH (21:14)
[2025-01-14] MEDS: PANTOprazole 40 MG TAB PO SCH (22:27)
[2025-01-14] MEDS: traZODone HCL 100 MG TAB PO SCH (22:27)
[2025-01-14] MEDS: DOCUSATE SODIUM/SENNA 50/8.6MG TAB PO SCH (22:27)
[2025-01-14] MEDS: QUEtiapine FUMARATE 300 MG TABLET PO SCH (22:27)
[2025-01-14] MEDS: TAMSULOSIN HCL 0.4 MG CAP PO SCH (22:52)
[2025-01-15] MEDS: LACTATED RINGER'S 500 ML IV ONE (03:40)
[2025-01-15] MEDS: POLYETHYLENE (MIRALAX) 17 GM PACK PO SCH (05:23)
[2025-01-15] MEDS: LEVOTHYROXINE SODIUM 100 MCG TABLET PO SCH (05:41)
[2025-01-15 06:22] LABS: Basophils # (auto) 0.01 K/uL (0.00-0.20); Basophils % (auto) 0.1 %; Eosinophils # (auto) 0.04 K/uL (0.00-0.50); Eosinophils % (auto) 0.6 %; Hematocrit (blood only) 26.8 % (37.0-47.0); Hemoglobin 8.9 g/dl (12.0-16.0); Immature Granulocytes # (auto) 0.02 K/uL (0.01-0.20); Immature Granulocytes % (auto) 0.3 %; Lymphocytes # (auto) 1.23 K/uL (1.20-3.40); Lymphocytes % (auto) 17.5 %; Mean Corpuscular Hgb Conc 33.2 g/dL (32.0-36.0); Mean Corpuscular Volume 90.2 fL (80.0-100.0); Mean Platelet Volume 10.8 fL (9.4-12.4); Monocytes # (auto) 0.58 K/uL (0.11-0.59); Monocytes % (auto) 8.3 %; Neutrophils # (auto) 5.14 K/uL (1.40-6.50); Neutrophils % (auto) 73.2 %; Platelet Count 135 K/uL (130-400); RDW Coefficient of Variation 14.5 % (11.5-14.5); RDW Standard Deviation 47.5 fL (36.4-46.3); Red Blood Count 2.97 M/uL (4.20-5.40); White Blood Count 7.02 K/ul (4.8-10.8)
[2025-01-15 06:39] LABS: BUN Creatinine Ratio 18.3 (10-20); Calcium 8.3 mg/dl (8.6-10.3); Creatinine Clr Calc Pharmacy 75.6 ml/min; Potassium 3.8 mmol/L (3.5-5.1)
--- NOTE | 2025-01-15 07:45 | Hospitalist Progress Note ---
Date of Service January 15, 2025 Assessment & Plan (1) Lumbosacral radiculitis: (2) Lumbosacral spondylosis: (3) Diabetes type 2, controlled: Plan #Lumbar radiculopathy -Postop day 1 -Management per orthopedics. X-rays and subsequent MRI ordered due to new left foot numbness today, IV dexamethasone ordered per ortho -Pain managed with Tylenol, Percocet, Toradol, Dilaudid #Hypotension #Acute Blood Loss Anemia -Hgb 8.9 on 01/15 compared to 12.6 on 01/03. EBL from surgery approximately 250mL -Hypotension with BP documented at 79 systolic at lowest- has primarily been at mid 90s systolic today -Multiple IVF boluses ordered, started maintenance IVF (LR @ 125/h) and BP may receive some support from IV dexamethasone as ordered above -Cautious with IV opioids considering borderline BP -Will repeat H&H this evening and transfuse if Hgb <8. Repeat CBC in a.m. #Type 2 diabetes -Well-controlled, can continue regular diet -Insulin and BSG checks ordered #Hypothyroid continue levothyroxine #Urinary retention apparently has been a chronic problem, most recently in the office she was on Flomax, apparently gabapentin may have been considered as a culprit, but she was going to be seeing urology. Follow urine outputstraight cath as needed if necessary #Bipolar/depression Home meds have been ordered. Follow, reassurance, supportive care. Diet: regular DVT prophylaxis: Per primary service, currently SCDs Code Status: Full Code Admission and Anticipated Discharge Date Admission Date: January 14, 2025 Supervising Physician Co-Signing Physician Notes I personally examined the patient and verified all diaz points of history and exam, discussed case, and agree with decision making with Dr Elver pérez, weak. L leg numb - spine surg saw and started steroids vitals noted nad fatigued heent nc at mmm b/l LE motor equal and intact, sensory intact - more a subjective numbness. breathing unlabored no accessory muscles good effort skin no rashes no pallor or icterus L leg numbness - steroids, follow acute blood loss anemia - LR, no clear need for transfusion yet, continue to follow otherwise as above Subjective Patient was seen and examined at bedside. Overnight patient had some hypotension, states she does not feel dizzy/lightheaded while in bed but feels a bit "off" when up and moving. Reports some leg numbness/decreased sensation and is having some difficulty moving it while up and moving with the walker. Review of Systems Review of Systems: As per above Physical Exam Constitutional: WD/WN, vitals as above Eyes: + anicteric sclerae; no conjunctival abn ormality ENMT: Ears: no external ear abnormality Nose: no external nose abnormality Moist mucous membranes Respiratory: normal respiratory effort, lungs clear to auscultation Cardiovascular: Rate/Rhythm: regular rate and regular rhythm No edema at bilateral lower extremities Gastrointestinal (Abdomen): Soft, nontender, nondistended Musculoskeletal: Able to move both lower extremities independently, notes some numbness of left foot Skin: no rashes, warm and dry Psychiatric: A+Ox3, euthymic affect Results & Data Results & Data Vital Signs (Past 12 Hours) Vital Signs Temp Pulse Resp BP BP Pulse Ox O2 Del Method 01/15/25 07:35 84/48 L 89/50 L 01/15/25 07:18 36.9 C 70 16 88/47 L 91 Room Air 01/15/25 05:16 73 91/57 L 01/15/25 03:11 36.7 C 70 14 79/43 L 92 Room Air 01/15/25 00:10 36.5 C 70 15 98/62 L 92 Room Air 01/14/25 21:20 Room Air 01/14/25 20:56 36.6 C 81 16 93/61 L 95 Room Air Resident Activity Tracking Resident Involvement: Resident Care Provided Care Provided: Adult Hospital Medicine (3) Diabetes type 2, controlled Diabetes mellitus intermediate designer insulin use: without intermediate designer use
[2025-01-15] MEDS: LACTATED RINGER'S 1,000 ML IV ONE (07:49)
[2025-01-15] MEDS: ACETAMINOPHEN 500 MG TAB PO PRN (07:49)
--- NOTE | 2025-01-15 08:35 | Orthopedic Progress Note ---
<Statement entered by Meet Lechuga MD - 01/15/25 09:09> Patient examined, some left ankle weakness ranging from 3-4/5 in Tib ant, EHL intact. Date of Service January 15, 2025 Assessment & Plan (1) S/P lumbar spinal fusion: Plan 69-year-old woman POD#1 s/p L5-S1 Transforaminal Lumbar Interbody Fusion with Posterolateral Fusion, L5 Laminectomy and Facetectomy at Site of Interbody Fusion, placement of posterior instrumentation, and L3 Laminectomy with Medial Facetectomy with CT navigation, doing relatively well overall. He having operative site pain, but pain is relatively well controlled with the ordered medications. Medically stable. She is neurologically intact to bilateral lower extremities; has mild diminished sensation to left L5/S1 dermatome. Mild 4+/5 weakness to left ankle dorsiflexion. Plan: 1. DVT prophylaxis w/ regular ambulation/mobilization, SCDs, ASA 81 mg QHS. 2. PT/OT for mobilization. WBAT and AAT. 3. Dressing remains in place; drain site intact. Drain to remain in place until at least tomorrow, 01/16. Continue recording drain output every 8 hours. 4. Continue diet as tolerated. 5. Discontinue Clifford catheter this morning. 6. Disposition -pending PT/OT evals, but patient preference is to return home with assistance of . 7. F/u as scheduled on 01/31/25 @ 15:30 w/ Dr. Lechuga for first post-op visit. Subjective Patient is POD#1 s/p: Operation Date: 01/14/25 07:30 Actual Procedures L5-S1 Transforaminal Lumbar Interbody Fusion with Posterolateral Fusion (58538) L5 Laminectomy and Facetectomy at Site of Interbody Fusion (89328) Insertion Interbody Device for Fusion L5-S1 (36819) Non-Segmental Pedicle Screw Instrumentation L5-S1 (06427) L3 Laminectomy with Medial Facetectomy (58401) Stereotactic CT Navigation for Spinal Instrumentation (36904) Allograft and Autograft for Spinal Fusion (37653, 65246) Patient admits to operative site pain this morning, but she has been utilizing the ordered medications. Denies CP, SOB, N/V. She says that her left sided hip/groin region radiculopathy symptoms are still present, but improved compared to preoperative. She is stating some numbness to the anterolateral aspect of the left lower leg, which seems to be new as of this morning. This numbness starts about the mid aspect of the lower leg and travels into the ankle/foot. She has not yet had a chance to work with therapy. Her plan at discharge is to return home with assistance from her . Review of Systems All systems reviewed & are unremarkable except as noted in HPI & below. Physical Exam GENERAL: Speech and cognition is intact. Mood and affect is appropriate. Does not appear in acute distress. HEAD: Normocephalic; atraumatic. CHEST: Regular chest respiration and excursion. NEURO: Awake, alert, and oriented x 3. BACK: Dressing intact to lumbar spine with no evidence of saturation. Drain site intact. No evidence of erythema, drainage, or abnormal warmth. LOWER EXTREMITIES: Sensation intact to light touch of the bilateral L2-S1 dermatomes, however the left L5/S1 is slightly diminished. Plantar/dorsiflexion intact bilaterally. NVI distally. R Hip flexion 5/5; knee extension 5/5; knee flexion 5/5; ankle dorsiflexion 5/5; ankle plantar flexion 5/5; EHL 5/5 L Hip flexion 5/5; knee extension 5/5; knee flexion 5/5; ankle dorsiflexion 4+/5; ankle plantar flexion 5/5; EHL 4+/5 Results & Data Results & Data Laboratory Results . Laboratory Results - last 24 hr 01/14/25 01/14/25 01/14/25 11:49 14:56 16:38 WBC RBC Hgb Hct MCV MCH MCHC RDW Std Deviation RDW Coeff of [place] Plt Count MPV Immature Gran % (Auto) Neut % (Auto) Lymph % (Auto) [place] % (Auto) Eos % (Auto) Baso % (Auto) Neut # (Auto) Lymph # (Auto) [place] # (Auto) Eos # (Auto) Baso # (Auto) Immature Gran # (Auto) Sodium Potassium Chloride Carbon Dioxide Anion Gap BUN Creatinine Est Cr Clr Drug Dosing eGFR BUN/Creatinine Ratio Glucose POC Glucose 147 H 116 H 174 H Calcium 01/14/25 01/15/25 01/15/25 20:55 05:47 07:37 WBC 7.02 RBC 2.97 L Hgb 8.9 L Hct 26.8 L MCV 90.2 MCH 30.0 MCHC 33.2 RDW Std Deviation 47.5 H RDW Coeff of [place] 14.5 Plt Count 135 MPV 10.8 Immature Gran % (Auto) 0.3 Neut % (Auto) 73.2 Lymph % (Auto) 17.5 [place] % (Auto) 8.3 Eos % (Auto) 0.6 Baso % (Auto) 0.1 Neut # (Auto) 5.14 Lymph # (Auto) 1.23 [place] # (Auto) 0.58 Eos # (Auto) 0.04 Baso # (Auto) 0.01 Immature Gran # (Auto) 0.02 Sodium 135 L Potassium 3.8 Chloride 101 Carbon Dioxide 30 Anion Gap 4 BUN 15 Creatinine 0.82 Est Cr Clr Drug Dosing 75.6 eGFR 78.35 BUN/Creatinine Ratio 18.3 Glucose 92 POC Glucose 109 H 106 H Calcium 8.3 L Diagnostic Findings . Lumbar Spine X-Ray 01/14/25 00:00 FL lumbar spine 2-3V CLINICAL HISTORY: L5-S1 TF LUMBAR INTERBODY FUSION COMPARISON STUDY: None FLUOROSCOPY TIME: 37 seconds FLUOROSCOPY IMAGES: 8 EXPOSURE DOSE: 25 mGy FINDINGS: Fluoroscopy was provided for L5-S1 metallic fusion. IMPRESSION: Intraoperative fluoroscopy. ACT 112: Negative or not required by law. Electronically signed by: Gerry Koenig M.D. 01/14/2025 11:21 AM PG Care Time/CCT Total # of Minutes Spent Total Time Spent with Patient: Total time spent is greater than 50% in coordination of care (as documented) at patient's floor/unit and/or counseling patient: [place] [address] Post Operative Follow-Up Patient Type Established History Problem Focused Exam Problem Focused Medical Decision Making Straight Forward Diagnoses S/P lumbar spinal fusion Z98.1
--- NOTE | 2025-01-15 08:53 | Orthopedic Progress Note ---
Date of Service January 15, 2025 Assessment & Plan (1) S/P lumbar spinal fusion: (2) Lumbosacral radiculitis: Plan Patient going for xrays this AM Discussed left foot numbness, she has some difficulty with dorsiflexing the left ankle, I explained this could be due to some nerve swelling/irritation from the decompression, intraoperative monitoring showed no change in signals and this appears to have worsened overnight Will add decadron today for 24 hours to see if she has some improvement, drain is functioning well, if worsening of numbness will consider MRI to evaluate for any residual compression. Ct images following screw placement reviewed again today, screws in good position, xrays this AM are slightly oblique however instrumentation appears stable position Subjective Patient seen and examined this morning. Reports that she has some worsening numbness to left foot this morning, was moving it better last night. Able to bear weight but some difficulty with left foot/ankle. Pre operative left buttock and leg pain is still present but improved. Required fluid bolus overnight. Review of Systems All systems reviewed & are unremarkable except as noted in HPI & below. Physical Exam 3/5 left ankle dorsiflexion, 5/5 left EHL, 4/5 left hip flexor RLE no deficits Decreased sensation left L5 dermatome Results & Data Results & Data Laboratory Results Hgb 8.9 this AM Diagnostic Findings . PG Care Time/CCT Total # of Minutes Spent Total Time Spent with Patient: Total time spent is greater than 50% in coordination of care (as documented) at patient's floor/unit and/or counseling patient: Coding Level of Care Code 88582 Post Operative Follow-Up Diagnoses S/P lumbar spinal fusion Z98.1 Lumbosacral radiculitis M54.17
[2025-01-15] MEDS ORDERED: FUROSEMIDE 40 MG TAB PO SCH (09:00)
[2025-01-15] MEDS ORDERED: NON-FORMULARY MEDICATION (Vitamin A 8,000 unit Capsule) PO SCH (09:00)
[2025-01-15] MEDS ORDERED: NON-FORMULARY MEDICATION (Potassium Chloride 10 mEq tablet,ER particles/crystals) PO SCH (09:00)
--- NOTE | 2025-01-15 09:22 | XRay Report ---
Clinical history: Postoperative examination Technique: 3 views of the lumbar spine are submitted for review Findings: There is an anterior and posterior fusion of L5 and S1 with posterior fixation rods and bilateral pedicle screws as well as prosthetic disc placement. There is no definite sign of instrumentation failure. There is a surgical drain posteriorly with its tip adjacent to the spinous process of L3 There is mild scoliosis. No listhesis is seen. There is a mild L4 compression fracture, likely old. There are small degenerative spurs throughout the lumbar spine. No focal osseous lesion is seen. There are surgical skin roxann. Surgical clips are seen suggestive of prior cholecystectomy. Air-fluid levels are seen within normal caliber loops of small and large bowel, which may be due to ileus Impression: 1. L5-S1 fusion 2. Mild L4 compression fracture, likely old 3. Multilevel degenerative disc disease 4. Mild scoliosis 5. Suspected mild ileus ACT 112: Positive. There are findings on this exam that require communication between the performing entity and the patient following Patient Test Result Information Act ([place] ACT 112) guidelines. Electronically signed by Vladimir Gupta 01-15-2025 09:22 AM
[2025-01-15] MEDS: ATORVASTATIN 40 MG TAB PO SCH (09:23)
[2025-01-15] MEDS: CYANOCOBALAMIN (B-12) 500 MCG TABLET PO SCH (09:25)
[2025-01-15] MEDS: GABAPENTIN 300 MG CAP PO SCH (09:25)
[2025-01-15] MEDS: LINACLOTIDE 145 MCG CAPSULE PO SCH (09:26)
[2025-01-15] MEDS: CHOLECALCIFEROL 25 MCG (1000 UNITS) TAB PO SCH (10:22)
[2025-01-15] MEDS: dexAMETHasone 10 MG in SYRINGE 0 ML IV SCH (10:29)
[2025-01-15] MEDS: LACTATED RINGER'S 1,000 ML IV SCH (11:03)
[2025-01-15] MEDS: KETOROLAC TROMETHAMINE 15 MG/ML VIAL IV ONE (11:03)
[2025-01-15] MEDS: LORazepam 0.5 MG TAB PO PRN (11:55)
[2025-01-15] MEDS: GADOBUTROL 65ML VIAL IV ONE (12:43)
--- NOTE | 2025-01-15 13:24 | Magnetic Resonance Report ---
Clinical History: Left foot numbness. Lumbar fusion 01/13/2025. Rule out hematoma Technique: Sagittal and axial T1 and T2-weighted magnetic resonance images were obtained of the lumbar spine before and after the administration of 9 cc of Gadavist gadolinium contrast. Comparison is made to the radiographs obtained earlier today in the prior MRI dated 04/29/2024 Findings: There is an anterior and posterior fusion of L5 and S1 with posterior fixation rods and bilateral pedicle screws and anterior interbody fusion. There is no definite sign of instrumentation failure. There has been an L3 laminectomy. There is a small amount of irregularly shaped fluid in the posterior subcutaneous fat and in the laminectomy bed at the level of L3. This could be due to normal postoperative edema and postoperative seroma. No clear abscess or hematoma is seen. There is a surgical drain in the laminectomy bed at the level of L3. No clear area of abnormal enhancement is seen The lumbar vertebrae are in normal alignment. There is an unchanged mild old compression fracture of the superior endplate of the L4 vertebral body with loss of up to 20% of the vertebral body height. No other fracture is identified. There is no definite sign of infection. There is no sign of acute ligamentous injury. The conus medullaris appears normal, terminating at the level of L1. At L1-L2, there is a disc bulge and a small central disc protrusion, without spinal stenosis or compression of the traversing nerve roots. There is mild left and minimal right neural foramen narrowing. At L2-L3, there is a disc bulge and a mild broad-based central disc protrusion. There is mild right and minimal left neural foramen narrowing. There is no spinal stenosis or clear nerve root compression. At L3-L4, there is a disc bulge without spinal stenosis. There is right greater than left neural foramen narrowing that may affect the right L3 nerve root. At L4-L5, there is a disc bulge without spinal stenosis. There is facet osteoarthritis. There is right greater than left neural foramen narrowing that may affect the right L4 nerve root At L5-S1, there is a disc bulge without spinal stenosis. There is bilateral neural foramen narrowing that may affect the exiting L5 nerve roots Impression: 1. L5-S1 fusion 2. L3 laminectomy with a surgical drain in place. There is a small amount of fluid and edema within and posterior to the laminectomy bed, likely within normal limits for recent surgery. There is no clear hematoma or abscess 3. Unchanged mild old L4 compression fracture 4. Lumbar disc bulges and disc protrusions, without spinal stenosis 5. Right L3-4 and L4-5 and bilateral L5-S1 neural foramen narrowing, which may affect the exiting nerve roots ACT 112: Positive. There are findings on this exam that require communication between the performing entity and the patient following Patient Test Result Information Act ([place] ACT 112) guidelines. Electronically signed by Vladimir Gupta 01-15-2025 13:23 PM
--- NOTE | 2025-01-15 14:58 | Billing Data ---
Date of Service January 15, 2025 Coding Level of Care Code 07809 SUB INP/OBS CARE
[2025-01-15] MEDS: ALBUTEROL HFA 8 GM INHALER INH PRN (20:34)
[2025-01-15] MEDS: LANTUS PER UNIT CHARGE SC SCH (20:43)
[2025-01-15] MEDS: tiZANidine HCL 4 MG TABLET PO PRN (20:55)
[2025-01-15 21:49] LABS: Hematocrit (blood only) 27.9 % (37.0-47.0)
--- NOTE | 2025-01-16 07:39 | Hospitalist Progress Note ---
Date of Service January 16, 2025 Assessment & Plan (1) Lumbosacral radiculitis: (2) Lumbosacral spondylosis: (3) Diabetes type 2, controlled: Plan #Lumbar radiculopathy -Postop day 2 -Management per orthopedics. X-rays and subsequent MRI ordered due to new left foot numbness noted on 01/15, IV dexamethasone ordered per ortho- now completed -Pain managed with Tylenol, Percocet, Toradol, Dilaudid -Per ortho, patient may discharge later today pending repeat eval by PT/OT #Hypotension #Acute Blood Loss Anemia -Hgb 8.9 on 01/15 compared to 12.6 on 01/03. EBL from surgery approximately 250mL -Repeat Hgb 8.8 on morning of 01/16 -Multiple IVF boluses received in the past 24 hours, BP now normotensive #Type 2 diabetes -Well-controlled, can continue regular diet -Insulin and BSG checks ordered, may require some adjustments considering 24 hours of IV steroids #Hypothyroid continue levothyroxine #Urinary retention apparently has been a chronic problem, most recently in the office she was on Flomax, apparently gabapentin may have been considered as a culprit, but she was going to be seeing urology. Follow urine outputstraight cath as needed if necessary #Bipolar/depression Home meds have been ordered. Follow, reassurance, supportive care. Diet: regular DVT prophylaxis: Per primary service, currently SCDs Code Status: Full Code Admission and Anticipated Discharge Date Admission Date: January 14, 2025 Supervising Physician Co-Signing Physician Notes I personally examined the patient and verified all diaz points of history and exam, discussed case, and agree with decision making with Dr Raya weak, a little lightheaded but also did a lot earlier. L leg numb - not really better than yesterday yet vitals noted nad fatigued heent nc at mmm lungs clear no r/r/w breathing unlabored no accessory muscles good effort skin no rashes no pallor or icterus L leg numbness - steroids, follow, MRI reassuring. supportive care. likley to need rehab acute blood loss anemia - appears to have stabilized. BP reasonable. follow otherwise as above Subjective Patient seen and examined at bedside. No acute events reported overnight. Overall feeling better than yesterday, is sitting at the side of her bed. Not feeling as dizzy as yesterday. Reports that the drain was removed today by ortho spine. Feels that the IV steroids helped but she continues to have some numbness in her left foot which has made walking with the walker difficult. Review of Systems Review of Systems: As per above Physical Exam Constitutional: WD/WN, vitals as above Eyes: + anicteric sclerae; no conjunctival abn ormality ENMT: Ears: no external ear abnormality Nose: no external nose abnormality Respiratory: normal respiratory effort, lungs clear to auscultation Cardiovascular: Rate/Rhythm: regular rate and regular rhythm Skin: no rashes, warm and dry Neurologic: Decreased sensation at plantar and dorsal surface of left foot. Able to move toes and ankle independently Psychiatric: A+Ox3, euthymic affect Results & Data Results & Data Vital Signs (Past 12 Hours) Vital Signs Temp Pulse Resp BP Pulse Ox O2 Del Method 01/15/25 20:40 Room Air 01/15/25 20:35 68 18 91 Room Air 01/15/25 20:00 36.8 C 78 14 116/62 94 Room Air Resident Activity Tracking Resident Involvement: Resident Care Provided Care Provided: Adult Hospital Medicine (3) Diabetes type 2, controlled Diabetes mellitus snf insulin use: without snf use
[2025-01-16 07:44] LABS: Basophils # (auto) 0.01 K/uL (0.00-0.20); Basophils % (auto) 0.1 %; Hematocrit (blood only) 27.2 % (37.0-47.0); Hemoglobin 8.8 g/dl (12.0-16.0); Immature Granulocytes # (auto) 0.05 K/uL (0.01-0.20); Immature Granulocytes % (auto) 0.6 %; Lymphocytes # (auto) 0.49 K/uL (1.20-3.40); Lymphocytes % (auto) 5.8 %; Mean Corpuscular Hemoglobin 29.7 pg (25.0-34.0); Mean Corpuscular Hgb Conc 32.4 g/dL (32.0-36.0); Mean Corpuscular Volume 91.9 fL (80.0-100.0); Mean Platelet Volume 11.5 fL (9.4-12.4); Monocytes # (auto) 0.37 K/uL (0.11-0.59); Monocytes % (auto) 4.3 %; Neutrophils % (auto) 89.2 %; Platelet Count 138 K/uL (130-400); RDW Coefficient of Variation 14.4 % (11.5-14.5); RDW Standard Deviation 48.6 fL (36.4-46.3); Red Blood Count 2.96 M/uL (4.20-5.40); White Blood Count 8.52 K/ul (4.8-10.8)
[2025-01-16 08:00] LABS: Albumin Globulin Ratio 1.9 (0.9-2); Albumin Level 3.5 gm/dl (3.4-5.0); BUN Creatinine Ratio 18.2 (10-20); Bilirubin,Total 0.4 mg/dl (0.2-1.0); Calcium 8.8 mg/dl (8.6-10.3); Creatinine Clr Calc Pharmacy 93.9 ml/min; Globulin 1.8 gm/dl (2.5-4.0); Potassium 4.2 mmol/L (3.5-5.1); Total Protein 5.3 gm/dl (6.0-8.3)
--- NOTE | 2025-01-16 08:56 | Orthopedic Progress Note ---
<Statement entered by Meet Lechuga MD - 01/16/25 16:13> Patient seen this afternoon around 4pm, would benefit from inpatient rehab given unsteady gait. Hold off on dc, look into rehab options, moving foot normally today, continued decrease in sensation, MRI discussed and no sign of residual compression, will observe as she is improving. Date of Service January 16, 2025 Assessment & Plan (1) S/P lumbar spinal fusion: Plan 69-year-old woman POD#2 s/p L5-S1 Transforaminal Lumbar Interbody Fusion with Posterolateral Fusion, L5 Laminectomy and Facetectomy at Site of Interbody Fusion, placement of posterior instrumentation, and L3 Laminectomy with Medial Facetectomy with CT navigation. She is improving pain adam since yesterday. The diminished sensation to left L5/S1 dermatome seems to have mildly improved objectively on exam today (slightly more distal compared to yesterday). Mild 4/5 weakness to left ankle dorsiflexion and EHL persists, and is being monitored. For explained this could be due to some nerve swelling/irritation fr om the decompression; intraoperative monitoring showed no change in signals Currently, no concern for hematoma based on yesterday's MRI imaging. X-rays and CT imaging demonstrates no evidence for hardware malpositioning or change since instrumentation was placed at surgery. Plan: 1. DVT prophylaxis w/ regular ambulation/mobilization, SCDs, ASA 81 mg QHS. 2. Continue PT/OT for mobilization. WBAT and AAT. Goal of home later today. 3. Most recent 8-hour drain recording shows only 20 mL output; drain was discontinued today by myself, with no issues. Operative site well-appearing and new dressing was placed. Instructed patient to continue daily dressing changes as long as there continues to be any drainage, but dressings can be discontinued once there is no longer any drainage noted on a fresh dressing. 4. Continue diet as tolerated. 5. Discontinue Clifford catheter this morning. 6. Disposition -pending further PT/OT, but patient preference is to return home with assistance of later today. Will place discharge order in anticipation of her returning home. 7. F/u as scheduled on 01/31/25 @ 15:30 w/ Dr. Lechuga for first post-op visit. Subjective Patient is POD#2 s/p: Operation Date: 01/14/25 07:30 Actual Procedures L5-S1 Transforaminal Lumbar Interbody Fusion with Posterolateral Fusion (15585) L5 Laminectomy and Facetectomy at Site of Interbody Fusion (55641) Insertion Interbody Device for Fusion L5-S1 (38838) Non-Segmental Pedicle Screw Instrumentation L5-S1 (91392) L3 Laminectomy with Medial Facetectomy (96335) Stereotactic CT Navigation for Spinal Instrumentation (07303) Allograft and Autograft for Spinal Fusion (94102, 00708) Operative site pain this morning since starting the gabapentin and Decadron. So overall, pain is improved, but she does continue to note the numbness to the anterolateral left lower leg and into the ankle/foot seems to be unchanged since yesterday, but no worse. As far as perceived weakness, this seems to also be about the same as yesterday, mainly affecting her left ankle dorsiflexion and EHL function. Again, her left sided hip/groin region radiculopathy symptoms are still present, but improved compared to preoperative. Patient states that she was able to get herself sat up on her own since I talked to her yesterday, so she was motivated about that. She does want to do as many tasks/functions on her own as possible so that she knows she is improving. She stated that the IV pain medication is "too strong", and she has also stepped down to 1 Percocet instead of 2 as of this last oral administration. Her plan at discharge continues to be to return home with assistance from her , and she does currently have the preference to return home later today if all continues to go well. Review of Systems All systems reviewed & are unremarkable except as noted in HPI & below. Physical Exam GENERAL: Speech and cognition is intact. Mood and affect is appropriate. Does not appear in acute distress. HEAD: Normocephalic; atraumatic. CHEST: Regular chest respiration and excursion. NEURO: Awake, alert, and oriented x 3. BACK: Dressing intact to lumbar spine with no evidence of saturation. Drain site intact. No evidence of erythema, drainage, or abnormal warmth. Upon dressing removal, there was no active drainage noted, and roxann were intact. No evidence of oscar-incisional erythema. LOWER EXTREMITIES: Sensation intact to light touch of the bilateral L2-S1 dermatomes, however the left L5/S1 is slightly diminished (this now seems to be only slightly more distal compared to yesterday, whereas it started in the mid tibial region yesterday, and is now more in the distal tibia region and into the ankle/foot. Plantar/dorsiflexion intact bilaterally, however with weakness to dorsiflexion on the left. Palpable PT/DP pulses, 2+. R Hip flexion 5/5; knee extension 5/5; knee flexion 5/5; ankle dorsiflexion 5/5; ankle plantar flexion 5/5; EHL 5/5 L Hip flexion 4+/5; knee extension 4+/5; knee flexion 4+/5; ankle dorsiflexion 4/5; ankle plantar flexion 5/5; EHL 4/5 Results & Data Results & Data Laboratory Results . Diagnostic Findings . Lumbar Spine X-Ray 01/15/25 07:00 Clinical history: Postoperative examination Technique: 3 views of the lumbar spine are submitted for review Findings: There is an anterior and posterior fusion of L5 and S1 with posterior fixation rods and bilateral pedicle screws as well as prosthetic disc placement. There is no definite sign of instrumentation failure. There is a surgical drain posteriorly with its tip adjacent to the spinous process of L3 There is mild scoliosis. No listhesis is seen. There is a mild L4 compression fracture, likely old. There are small degenerative spurs throughout the lumbar spine. No focal osseous lesion is seen. There are surgical skin roxann. Surgical clips are seen suggestive of prior cholecystectomy. Air-fluid levels are seen within normal caliber loops of small and large bowel, which may be due to ileus Impression: 1. L5-S1 fusion 2. Mild L4 compression fracture, likely old 3. Multilevel degenerative disc disease 4. Mild scoliosis 5. Suspected mild ileus ACT 112: Positive. There are findings on this exam that require communication between the performing entity and the patient following Patient Test Result Information Act ([place] ACT 112) guidelines. Electronically signed by Vladimir Gupta 01-15-2025 09:22 AM Lumbar Spine MRI 01/15/25 11:01 Clinical History: Left foot numbness. Lumbar fusion 01/13/2025. Rule out hematoma Technique: Sagittal and axial T1 and T2-weighted magnetic resonance images were obtained of the lumbar spine before and after the administration of 9 cc of Gadavist gadolinium contrast. Comparison is made to the radiographs obtained earlier today in the prior MRI dated 04/29/2024 Findings: There is an anterior and posterior fusion of L5 and S1 with posterior fixation rods and bilateral pedicle screws and anterior interbody fusion. There is no definite sign of instrumentation failure. There has been an L3 laminectomy. There is a small amount of irregularly shaped fluid in the posterior subcutaneous fat and in the laminectomy bed at the level of L3. This could be due to normal postoperative edema and postoperative seroma. No clear abscess or hematoma is seen. There is a surgical drain in the laminectomy bed at the level of L3. No clear area of abnormal enhancement is seen The lumbar vertebrae are in normal alignment. There is an unchanged mild old compression fracture of the superior endplate of the L4 vertebral body with loss of up to 20% of the vertebral body height. No other fracture is identified. There is no definite sign of infection. There is no sign of acute ligamentous injury. The conus medullaris appears normal, terminating at the level of L1. At L1-L2, there is a disc bulge and a small central disc protrusion, without spinal stenosis or compression of the traversing nerve roots. There is mild left and minimal right neural foramen narrowing. At L2-L3, there is a disc bulge and a mild broad-based central disc protrusion. There is mild right and minimal left neural foramen narrowing. There is no spinal stenosis or clear nerve root compression. At L3-L4, there is a disc bulge without spinal stenosis. There is right greater than left neural foramen narrowing that may affect the right L3 nerve root. At L4-L5, there is a disc bulge without spinal stenosis. There is facet osteoarthritis. There is right greater than left neural foramen narrowing that may affect the right L4 nerve root At L5-S1, there is a disc bulge without spinal stenosis. There is bilateral neural foramen narrowing that may affect the exiting L5 nerve roots Impression: 1. L5-S1 fusion 2. L3 laminectomy with a surgical drain in place. There is a small amount of fluid and edema within and posterior to the laminectomy bed, likely within normal limits for recent surgery. There is no clear hematoma or abscess 3. Unchanged mild old L4 compression fracture 4. Lumbar disc bulges and disc protrusions, without spinal stenosis 5. Right L3-4 and L4-5 and bilateral L5-S1 neural foramen narrowing, which may affect the exiting nerve roots ACT 112: Positive. There are findings on this exam that require communication between the performing entity and the patient following Patient Test Result Information Act ([place] ACT 112) guidelines. Electronically signed by Vladimir Gupta 01-15-2025 13:23 PM PG Care Time/CCT Total # of Minutes Spent Total Time Spent with Patient: Total time spent is greater than 50% in coordination of care (as documented) at patient's floor/unit and/or counseling patient: [place] [address] Post Operative Follow-Up Patient Type Established History Problem Focused Exam Problem Focused Medical Decision Making Straight Forward Diagnoses S/P lumbar spinal fusion Z98.1
[2025-01-16] MEDS ORDERED: LANTUS PER UNIT CHARGE SC SCH (09:00)
--- NOTE | 2025-01-16 09:24 | Discharge Summary ---
<Statement entered by Meet Lechuga MD - 01/18/25 13:28> Discharge date changed to 01/18/2025 as patient has qualified for rehab placement Date of Service January 16, 2025 Admission HPI (Per Admitting) Patient is a pleasant 69-year-old female who comes in today for follow-up of low back pain radiating into the left gluteal region and occasionally further down the left leg consistent with an L5 radiculopathy. She has been seen by pain management over the last year and trialed multiple epidural injections without significant lasting relief. She was seen several weeks ago and sent for nerve conduction study of the left lower extremity which does confirm active radiculopathy of the left L5 and S1 nerve roots consistent with her symptoms. She has had considerable conservative Management in the past without significant relief. We discussed the possibility of repeating an epidural injection this time at the L5-S1 level versus possible surgical intervention. She does also have some symptoms of neurogenic claudication with diffuse cramping in the legs with prolonged standing likely due to her L3-4 central canal stenosis. Overall she is neurologically intact with the exception of decreased standing ability, she has documented history of some urinary incontinence as well as urinary retention however this appears to be a chronic issue. I discussed treatment options with the patient today, given multiple injections in the past and no significant improvement in pain and despite activity modification she has had symptoms for greater than 6 months duration refractory to conservative care including multiple injections. Surgical plans were discussed today, to treat the neurogenic claudication I think this is most likely from the L3-4 central canal lateral recess stenosis, recommend decompressive laminectomy with medial facetectomy at this level to decompress the central canal and lateral recesses. Spondylolisthesis at L5-S1 with severe foraminal stenosis will require decompression and interbody fusion given the instability evident on x-rays as well as the fact that I would likely need to perform a complete facetectomy on the left side. Plan would be for left-sided transforaminal lumbar interbody fusion, bilateral decompression of the L5-S1 interspace, left-sided facetectomy and posterior instrumentation. We discussed surgical intervention at length, and the patient was informed that risks include but are not limited to: bleeding and possible need for blood transfusion, infection, blood clots to extremities or lungs, no relief of symptoms, dural tear, nerve injury, paralysis, weakness, pain, instrumentation failure, prolonged recovery, need for physical therapy or rehabilitation services, loss of bowel/bladder control, recurrent stenosis or disc herniation, need for more surgery, and in very rare instances even . We also discussed that there is risk of pseudarthrosis formation, failure of the fusion to occur which may increase chances of instrumentation failure or need for further surgery. We also discussed that fusing the spine puts the patient at risk for adjacent segment breakdown and possible need for future surgery, the risk is approximately 3-5% per year. The patient voiced understanding of the risks and benefits of surgery and elected to proceed. Patient reports that she does not have any specialist monitoring any medical conditions, will contact her primary care physician for preoperative risk stratification as well as any medical optimization may be warranted. Will also have her see the anesthesia preoperative clinic. Admission Exam (Per Admitting) Physical exam: Constitutional: Well developed, appears stated age Psych: patient is coherent and answers questions appropriately, normal affect Eye: Normal gaze, no redness to sclera, pupils round and equal Pulm: Normal respiratory effort, no wheezing Cardiovascular: no significant peripheral edema, palpable DP/PT pulses Skin shows no rashes, lesions No midline or paraspinal tenderness with palpation over the lumbar spine, no stepoffs Motor strength is 5/5 in bilateral hip flexors, quadriceps, tibialis anterior, extensor hallucis longus, and gastroc/soleus complex Sensation intact to light touch in the L2-S1 dermatomes bilaterally 2+ reflexes at the achilles and patella tendons bilaterallyNo ankle clonus No pain with internal or external rotation of the left hip joint Diagnostic studies: MRI of the lumbar spine was reviewed in conjunction with nerve conduction studies. MRI was interpreted at a previous visit, she has severe foraminal stenosis on the left at L5-S1 with obvious compression of the exiting nerve root, L5-S1 spondylolisthesis. There is also moderate to severe central canal stenosis and lateral recess stenosis at the L3-4 level. Previous weightbearing x-rays AP lateral and flexion-extension were also reviewed again with the patient today, these have been interpreted previously. Again noted is grade 1 spondylolisthesis at L5-S1 level with corresponding posterior facet arthropathy. There appears to be greater than 3 mm of movement on flexion-extension views of the lumbar spine. Nerve conduction study was available for review today, results indicate chronic L5-S1 radiculopathy on the left consistent with the patient's symptoms Principal Diagnosis Same as "Discharge Diagnosis" noted below under Discharge Instructions. Discharge Exam GENERAL: Speech and cognition is intact. Mood and affect is appropriate. Does not appear in acute distress. HEAD: Normocephalic; atraumatic. CHEST: Regular chest respiration and excursion. NEURO: Awake, alert, and oriented x 3. BACK: Dressing intact to lumbar spine with no evidence of saturation. Drain site intact. No evidence of erythema, drainage, or abnormal warmth. Upon dressing removal, there was no active drainage noted, and roxann were intact. No evidence of oscar-incisional erythema. LOWER EXTREMITIES: Sensation intact to light touch of the bilateral L2-S1 dermatomes, however the left L5/S1 is slightly diminished (this now seems to be only slightly more distal compared to yesterday, whereas it started in the mid tibial region yesterday, and is now more in the distal tibia region and into the ankle/foot. Plantar/dorsiflexion intact bilaterally, however with weakness to dorsiflexion on the left. Palpable PT/DP pulses, 2+. R Hip flexion 5/5; knee extension 5/5; knee flexion 5/5; ankle dorsiflexion 5/5; ankle plantar flexion 5/5; EHL 5/5 L Hip flexion 4+/5; knee extension 4+/5; knee flexion 4+/5; ankle dorsiflexion 4/5; ankle plantar flexion 5/5; EHL 4/5 Discharge Data Consultations 01/14/25 12:04 Consult Hospitalist Routine Procedures Performed Operation Date: 01/14/25 07:30 Actual Procedures p L5-S1 Transforaminal Lumbar Interbody Fusion, L3 Left Laminectomy with CT Navigation and Spinal Cord Monitoring(Not Applicable) - Meet Lechuga MD Ordered Studies 01/14/25 CT lumbar spine wo con Routine FL lumbar spine 2-3V Routine 01/15/25 11:01 MRI Lumbar Spine [MR lumbar spine wo/w con] Urgent Hospital Course (1) Lumbosacral spondylosis: (2) Lumbosacral radiculitis: (3) Foraminal stenosis of lumbosacral region: (4) Spondylolisthesis, lumbosacral region: (5) S/P lumbar spinal fusion: Plan On January 14, 2025 Pearl arrived at [facility] operating room and underwent L5-S1 Transforaminal Lumbar Interbody Fusion with Posterolateral Fusion, L5 Laminectomy and Facetectomy at Site of Interbody Fusion, placement of posterior instrumentation, and L3 Laminectomy with Medial Facetectomy with CT navigation without complications. Patient had general anesthesia for the procedure. Patient was admitted to the general orthopedic floor in stable condition postoperatively for pain control and mobilization with physical therapy; they safely and properly performed the ADL tasks demonstrated by PT/OT and met all goals. Pain was controlled with IV pain medication, with a transition to oral medications. Normal return of bowel and bladder function. They worked with therapy, vital signs were acceptable, no need for transfusion, deemed safe for discharge. Patient was then discharged to [facility] ([place], [place]) in stable condition. Patient will follow-up with Dr. Lechuga in the orthospine clinic in approximately 2 weeks, as scheduled, for postoperative care. PG Care Time/CCT Total # of Minutes Spent Total Time Spent with Patient: Total time spent is greater than 50% in coordination of care (as documented) at patient's floor/unit and/or counseling patient: Discharge Plan Discharge Items Patient Disposition: Home - Self-Care Reason For Visit: Lumbosacral Radiculitis, Foraminal Stenosis of Lum Discharge Diagnosis: s/p lumbar laminectomy/decompression and instrumented fusion Activity: Per Instructions section Lifting: No more than 10 pounds Bathing: May shower/bathe in 3 days Weightbearing: Full weightbearing Weightbearing Comment: as tolerated Non-emergency contact: Surgeon Call non-emergency contact if: your pain is worsening, your temperature is above 101, your wound has increased redness and your wound has increased drainage Follow-up/Referrals: Jennifer Peng DO [Primary Care Provider] - Meet Lechuga MD [Surgeon] - (01/31/25 @ 15:30) Diet: Regular Addtl Attending Provider Instructions: Instructions for FUSION Spine Surgery DO NOT TAKE ANY ANTI-INFLAMMATORY MEDICATIONS (MOTRIN, ALEVE, MOBIC, ETC.) IF YOU HAVE UNDERGONE A LUMBAR, THORACIC, OR CERVICAL FUSION DO NOT TAKE ANY HERBAL SUPPLEMENTS MEDICATIONS: You will be given prescriptions for the following: Oxycodone, Percocet or Hydrocodone - For breakthrough pain. Cyclobenzaprine (Flexeril), Valium (Diazepam), Tizanidine (Zanaflex), or Methocarbamol (Robaxin) For muscle spasms and back pain. Take these medications as needed. They will help the most during your recovery time. Senna-s and Miralax Senna-S twice daily, 17g packet of Miralax with water once daily while taking narcotics. These medications prevent constipation caused by the pain medications. Ondansetron (Zofran) For nausea. Cephalexin (Keflex) or Sulfamethoxazole/trimethoprim (Bactrim). Antibiotic. You are given IV antibiotics while in the hospital; you may or may not be given a prescription for home; this will be decided after surgery. Your pre-surgery prescription medications With the exception of anti- inflammatory medications, blood thinners (Coumadin, Plavix, Eliquis, Pradaxa, etc.), or narcotic pain medications, you may resume your home medications. For the above medications, you will be given specific instructions; you may resume blood thinners 3-4 days after surgery. ACTIVITIES: Walking Walking is mandatory. You need to walk at least once every hour while awake. Walking will help prevent blood clots in your legs and help prevent spasms in your back. Bending/twisting Limit bending at the waist, limit twisting and turning. You will be taught to "log roll" to get out of bed. Avoid athletic activities until further notice. Lifting Do NOT lift more than 5 lbs until further notice. Driving You may drive when you are no longer taking narcotic pain medications, can safely operate the brake/gas/clutch pedals, and can move your head/neck for visibility. Tobacco All tobacco products are strictly prohibited after surgery. Any use will dramatically increase your risk of complications. This includes vapor cigarettes, marijuana, nicotine patches and gums. Bracing/Cervical Collar There is no brace required for thoracic or lumbar surgery. If you have had a single level cervical fusion, you will be given a soft collar for comfort. Multiple level cervical fusions will receive a hard collar to be worn at all times, except for showering and hygiene, until follow up in clinic. Surgical Dressing Initial operative dressing is to stay on for 2 days; you may change it if it becomes saturated. From then on, change the dressing daily with dry gauze and paper tape. Continue to change dressing until there is no discharge. Once there is no discharge on the dressing, you may leave the incision open to air but make sure to keep it out of the sun. For supplies, stop by any local pharmacy. Any type of gauze dressing is acceptable. Do not put any ointments on the wound. You may shower 48 hours after your surgery. Cover the incision with Saran Wrap and tape the edges to prevent water from contacting the incision. If water contacts the incision, pat dry. No baths or submerging the incision until seen in the clinic at follow up appointment. Next Appointment: If you do not already have one made, you will need to schedule an appointment to see Dr. Lechuga about 2 weeks after surgery. To schedule, please call [phone]. QUESTIONS Please contact the office with questions or concerns: [phone] If outside normal business hours, you will be connected with the on-call Dogeo iker. Pending Studies at Discharge: No Stand-Alone Forms: My [facility], Pain - Opioid Pain Management, Smoking Cessation Medications and DC Order Prescriptions: New tizanidine 4 mg capsule 4 mg PO TID PRN (Reason: muscle spasticity) Qty: 30 0RF acetaminophen 500 mg tablet 1,000 mg PO Q8H PRN (Reason: pain) Qty: 180 0RF gabapentin 300 mg capsule 300 mg PO TID Qty: 90 0RF oxycodone 5 mg tablet 5 mg PO Q6H PRN (Reason: pain) Qty: 30 0RF ondansetron 4 mg tablet,disintegrating 4 mg PO Q6H PRN (Reason: nausea and vomiting) Qty: 20 0RF Continued atorvastatin 40 mg tablet 40 mg PO QAM Qty: 90 1RF metformin 1,000 mg tablet 1,000 mg PO BID Qty: 180 2RF albuterol sulfate 90 mcg/actuation HFA aerosol inhaler 2 puff inhalation Q6H PRN (Reason: shortness of breath or wheezing) Qty: 6.7 1RF furosemide [Lasix] 20 mg tablet 40 mg PO QAM Qty: 90 1RF Patient Comments: patient decreased herself quetiapine 300 mg tablet 300 mg PO HS Qty: 90 0RF buspirone 10 mg tablet 20 mg PO TID Qty: 540 2RF albuterol sulfate 2.5 mg /3 mL (0.083 %) solution for nebulization 2.5 mg inhalation QID PRN (Reason: shortness of breath or wheezing) Qty: 90 2RF Rx Instructions: DX ASTHMA azelastine 137 mcg (0.1 %) spray,non-aerosol 2 spray INTNAS BID PRN (Reason: congestion) Qty: 30 1RF Rx Instructions: Administer into each nostril fluticasone propionate [Flonase Allergy Relief] 50 mcg/actuation spray,suspension 2 spray INTNAS BID PRN (Reason: allergies) Qty: 16 1RF trazodone 100 mg tablet 100 mg PO HS Qty: 90 1RF Mounjaro 5 mg/0.5 mL pen injector 5 mg subcut .weekly Qty: 2 0RF tamsulosin [Flomax] 0.4 mg capsule 0.4 mg PO QPM Qty: 30 5RF bupropion HCl [Wellbutrin SR] 150 mg tablet sustained-release 12 hr 150 mg PO BID Qty: 60 2RF multivitamin Tablet 1 tab PO QAM (DME) nebulizer accessories Kit See Rx Instructions .Route Qty: 1 0RF Rx Instructions: As directed lamotrigine 100 mg tablet 200 mg PO BID Qty: 120 2RF quetiapine 25 mg tablet 25 mg PO QID Qty: 120 2RF potassium chloride 10 mEq tablet,ER particles/crystals 20 meq PO QAM fluticasone furoate-vilanterol [Breo Ellipta] 100-25 mcg/dose blister with device 1 inh inhalation DAILY PRN (Reason: Shortness Of Breath) vitamin A 8,000 unit Capsule 8,000 unit PO QAM cyanocobalamin (vitamin B-12) [Vitamin B-12] 1,000 mcg Tablet 1,000 mcg PO QAM cholecalciferol (vitamin D3) [Vitamin D3] 25 mcg (1,000 unit) Capsule 25 mcg PO QAM aspirin 81 mg tablet,delayed release (DR/EC) 81 mg PO HS melatonin 5 mg Capsule 10 mg PO HS levothyroxine 100 mcg tablet 100 mcg PO QAM Rx Instructions: TAKE 1 TABLET BY MOUTH EVERY DAY pantoprazole 40 mg tablet,delayed release (DR/EC) 40 mg PO BID Rx Instructions: take 1 tablet by mouth twice a day nystatin 100,000 unit/gram cream 1 applic topical BID PRN (Reason: Rash) linaclotide 290 mcg capsule 290 mcg PO QAM Held meloxicam 15 mg tablet 15 mg PO QPM Hold Instructions: Resume on 04/16/25. Discontinued hydrocodone-acetaminophen 5-325 mg tablet 1 tab PO Q8H PRN (Reason: pain) Qty: 30 0RF Discharge Orders: Discharge Order (Routine); Ordered 01/18/25 Ordered By: Christiano Caballero/Other Patient Handouts: DVT Post Op Prevention Admission Data Admit Date/Time: 01/14/25 07:30 Attending Provider: Meet Lechuga Admit Provider: Meet Lechuga Primary Care Provider: Jennifer Peng Other Providers: Arpan Boogie Other Interventions: Discharge Summary Assessment (RN) Last Done: 01/18/25 09:41
--- NOTE | 2025-01-16 16:42 | Billing Data ---
Date of Service January 16, 2025 Coding Level of Care Code 66322 SUB INP/OBS CARE
[2025-01-16] MEDS: TAMSULOSIN HCL 0.4 MG CAP PO SCH (21:24)
[2025-01-16] MEDS: traZODone HCL 100 MG TAB PO SCH (21:24)
[2025-01-17 06:09] LABS: Basophils # (auto) 0.01 K/uL (0.00-0.20); Basophils % (auto) 0.1 %; Eosinophils # (auto) 0.02 K/uL (0.00-0.50); Eosinophils % (auto) 0.3 %; Hematocrit (blood only) 27.5 % (37.0-47.0); Hemoglobin 8.7 g/dl (12.0-16.0); Immature Granulocytes # (auto) 0.04 K/uL (0.01-0.20); Immature Granulocytes % (auto) 0.5 %; Lymphocytes # (auto) 2.14 K/uL (1.20-3.40); Lymphocytes % (auto) 27.2 %; Mean Corpuscular Hgb Conc 31.6 g/dL (32.0-36.0); Mean Corpuscular Volume 91.7 fL (80.0-100.0); Mean Platelet Volume 11.5 fL (9.4-12.4); Monocytes # (auto) 0.67 K/uL (0.11-0.59); Monocytes % (auto) 8.5 %; Neutrophils # (auto) 4.98 K/uL (1.40-6.50); Neutrophils % (auto) 63.4 %; Platelet Count 147 K/uL (130-400); RDW Coefficient of Variation 14.7 % (11.5-14.5); RDW Standard Deviation 49.5 fL (36.4-46.3); White Blood Count 7.86 K/ul (4.8-10.8)
[2025-01-17 06:26] LABS: BUN Creatinine Ratio 19.1 (10-20); Calcium 8.9 mg/dl (8.6-10.3); Creatinine Clr Calc Pharmacy 91.1 ml/min; Potassium 4.1 mmol/L (3.5-5.1)
--- NOTE | 2025-01-17 07:17 | Orthopedic Progress Note ---
Date of Service January 17, 2025 Assessment & Plan (1) S/P lumbar spinal fusion: 69-year-old woman POD#3 s/p L5-S1 Transforaminal Lumbar Interbody Fusion with Posterolateral Fusion, L5 Laminectomy and Facetectomy at Site of Interbody Fusion, placement of posterior instrumentation, and L3 Laminectomy with Medial Facetectomy with CT navigation. Continue PT/OT, awaiting placement in rehab. Continue dressing changes daily as needed Discussed with Dr Lechuga. Subjective . 69 year old patient POD 3 from L5-S1 Transforaminal Lumbar Interbody Fusion with Posterolateral Fusion, L5 Laminectomy and Facetectomy at Site of Interbody Fusion, placement of posterior instrumentation, and L3 Laminectomy with Medial Facetectomy with CT navigation with Dr Lechuga. Discharge held yesterday and awaiting placement in rehab. She is still having some back pain and numbness in her left foot. She feels that is unchanged from yesterday. Review of Systems All systems reviewed & are unremarkable except as noted in HPI & below. Physical Exam .alert and oriented. NAD. VSS Dressing intact, some slight drainage at the inferior aspect of the dressing. Able to dorsiflex and plantarflex, moves toes appropriately. Some slight weakness on the left with DF and EHL compared to the contralateral foot. Reports some diminished sensation in the left foot. Results & Data Results & Data Laboratory Results . Diagnostic Findings . PG Care Time/CCT Total # of Minutes Spent Total Time Spent with Patient: Total time spent is greater than 50% in coordination of care (as documented) at patient's floor/unit and/or counseling patient: Coding Level of Care Code 26093 Post Operative Follow-Up Diagnoses S/P lumbar spinal fusion Z98.1
--- NOTE | 2025-01-17 11:59 | Pharmacy Report ---
Pharmacy Glycemic Short Note 2 - Date of Service January 17, 2025 - Glycemic Short BSG Results (Last 24 hours): 01/16/25 01/16/25 01/17/25 16:31 21:07 05:20 Glucose 87 POC Glucose 141 H 144 H 01/17/25 01/17/25 07:21 11:35 Glucose POC Glucose 81 92 OUTPATIENT ANTIDIABETIC REGIMEN: * metformin 1000mg BID * Mounjaro 5mg QWK * HbA1c 5.1% (01/03/25) ASSESSMENT: 01/17 * Patient received 17 units of insulin yesterday, all were bolus. BSGs were fairly well controlled at [phone]/dL. * Fasting BSG was 81mg/dL this morning. No basal insulin is needed at this time. * She was ordered dexamethasone 10mg iv q 8hours postop, with the last dose being yesterday morning. The CR coverage was removed from the bolus insulin parameters as it is not expected that she will need much, if any insulin coverage now that she is no longer on steroids. 01/14: * Pearl is a 69 year old admitted status post spinal laminectomy/fusion POD #0 with a history of type 2 diabetes mellitus. Pharmacy has been consulted to assist with glycemic management while inpatient. * Preoperative BSG this AM within goal range, given 8mg IV dexamethasone preoperatively, BSGs prachi slightly, will given ~0.2 units/kg basal insulin to cover for steroid induced hyperglycemia. No ongoing steroids ordered at this time * NovoLog initiated at a weight based stress of 2 PLAN FOR INPATIENT GLYCEMIC CONTROL: * Hold outpatient oral diabetes medications * Basal insulin * no additional needed at this time * Bolus insulin * NovoLog per scale ACHS or Q6hrs while NPO * Goal Range: Low 110 mg/dL - High 140 mg/dL * Correction Factor: 30 mg/dL/unit * Nutritional / Prandial insulin per carb ratio: NONE
--- NOTE | 2025-01-17 12:33 | Hospitalist Progress Note ---
Date of Service January 17, 2025 Assessment & Plan (1) Lumbosacral radiculitis: (2) Lumbosacral spondylosis: (3) Diabetes type 2, controlled: Plan #Lumbar radiculopathy -Postop and slowly recovering -Management per orthopedics. X-rays and subsequent MRI ordered due to new left foot numbness noted on 01/15, IV dexamethasone ordered per ortho- now completed - for rehab place #Hypotension #Acute Blood Loss Anemia -Hgb 8.9 on 01/15 compared to 12.6 on 01/03. EBL from surgery approximately 250mL -Repeat Hgb 8.8 on morning of 01/16 -Multiple IVF boluses given, BP now normotensive, follow hemoglobin periodically #Type 2 diabetes -Well-controlled, can continue regular diet -Insulin and BSG checks ordered, sugars have been at goal #Hypothyroid continue levothyroxine #Urinary retention apparently has been a chronic problem, most recently in the office she was on Flomax, apparently gabapentin may have been considered as a culprit, but she was going to be seeing urology. Follow urine outputstraight cath as needed if necessary #Bipolar/depression Home meds have been ordered. Follow, reassurance, supportive care. Diet: regular DVT prophylaxis: Per primary service, currently SCDs Code Status: Full Code stable for transfer to rehab when bed available. Medically she is stable, hospitalist team will sign off at this time. Certainly we will be available if neededdo not hesitate to call. Admission and Anticipated Discharge Date Admission Date: January 14, 2025 Subjective left leg still feels numb and weak, but feels like it is a little bit better. Walking with therapy whenever I see herwalking slowly but steadily with a walker. Now pending rehab. No other complaints. Review of Systems Review of Systems: All systems reviewed & are unremarkable except as noted in HPI & below Physical Exam Physical Exam: In general she is awake and alert pleasant no distress. HEENT normocephalic atraumatic mucous membranes moist. Breathing unlabored no accessory muscle use good effort. Skin without rashes pallor or icterus. Neuro without focal deficits. Is walking slowly but steadily with PT and a walker moving both legs equally at the time I see her. Results & Data Results & Data Vital Signs (Past 12 Hours) Vital Signs Temp Pulse Resp BP Pulse Ox O2 Del Method 01/17/25 07:58 97.7 F 71 17 100/62 94 Room Air 01/17/25 01:53 98.6 F 68 14 113/73 92 Room Air PG Care Time/CCT Total # of Minutes Spent Total Time Spent with Patient: Total time spent is greater than 50% in coordination of care (as documented) at patient's floor/unit and/or counseling patient: Coding Level of Care Code 35879 SUB INP/OBS CARE 2/35MIN Diagnoses Lumbosacral radiculitis M54.17 Lumbosacral spondylosis M47.817 Diabetes type 2, controlled E11.9 Diabetes mellitus survey statistician insulin use: without senior living use (3) Diabetes type 2, controlled Diabetes mellitus survey statistician insulin use: without survey statistician use
[2025-01-17] MEDS: MAGNESIUM HYDROXIDE SUSP 30 ML UDC PO PRN (13:26)
[2025-01-17] MEDS: KETOROLAC TROMETHAMINE 15 MG/ML VIAL IV PRN (17:15)
[2025-01-18 03:43] LABS: Basophils # (auto) 0.04 K/uL (0.00-0.20); Basophils % (auto) 0.6 %; Eosinophils # (auto) 0.23 K/uL (0.00-0.50); Eosinophils % (auto) 3.5 %; Hematocrit (blood only) 26.6 % (37.0-47.0); Hemoglobin 8.5 g/dl (12.0-16.0); Immature Granulocytes # (auto) 0.03 K/uL (0.01-0.20); Immature Granulocytes % (auto) 0.5 %; Lymphocytes # (auto) 2.99 K/uL (1.20-3.40); Lymphocytes % (auto) 45.5 %; Mean Corpuscular Hemoglobin 29.7 pg (25.0-34.0); Mean Platelet Volume 11.2 fL (9.4-12.4); Monocytes % (auto) 10.7 %; Neutrophils # (auto) 2.58 K/uL (1.40-6.50); Neutrophils % (auto) 39.2 %; Platelet Count 141 K/uL (130-400); RDW Coefficient of Variation 14.9 % (11.5-14.5); RDW Standard Deviation 50.8 fL (36.4-46.3); Red Blood Count 2.86 M/uL (4.20-5.40); White Blood Count 6.57 K/ul (4.8-10.8)
[2025-01-18 07:47] VITALS: BP 99/61; PULSE 58; RESP 16; TEMP 98.2; O2SAT 98
--- NOTE | 2025-01-18 13:00 | Orthopedic Progress Note ---
Date of Service January 18, 2025 Assessment & Plan (1) S/P lumbar spinal fusion: 69-year-old woman POD#3 s/p L5-S1 Transforaminal Lumbar Interbody Fusion with Posterolateral Fusion, L5 Laminectomy and Facetectomy at Site of Interbody Fusion, placement of posterior instrumentation, and L3 Laminectomy with Medial Facetectomy with CT navigation. Continue PT/OT, discharge later today to rehab facility. Continue dressing changes daily as needed We will follow-up with Dr. Lechuga in 2 to 3 weeks for continued postoperative management. Discussed with Dr Lechuga. Subjective James Kang was seen this morning in no visible distress. She was in the bathroom getting ready for the day upon my evaluation. She is currently set to be discharged to a rehabilitation center today. She notes that she has no true issues today. She is excited to finally get out of the hospital today. She denies any concerns with her surgical incision site. Denies any active bleeding, discharge, or signs infection. She denies any other concerns today. Review of Systems All systems reviewed & are unremarkable except as noted in HPI & below. Physical Exam . .alert and oriented. NAD. VSS Dressing intact, and dry. Able to dorsiflex and plantarflex, moves toes appropriately. Some slight weakness on the left with DF and EHL compared to the contralateral foot. Normal sensation when compared to yesterday. Neurovascular intact. Results & Data Results & Data Laboratory Results . Diagnostic Findings . PG Care Time/CCT Total # of Minutes Spent Total Time Spent with Patient: Total time spent is greater than 50% in coordination of care (as documented) at patient's floor/unit and/or counseling patient: Coding Level of Care Code 33230 Post Operative Follow-Up Diagnoses S/P lumbar spinal fusion Z98.1
--- NOTE | 2025-01-19 10:35 | Coding Query ---
CODING QUERY To promote full compliance with coding requirements relating to patient care, provider participation is requested in all cases of foreign service teacher uncertainty. Please assist us with the question(s) below: Coding Question(s): Patient stated to have Hypotension in several PN. Can you please clarify if the hypotension is associated with anything. Physician's Response(s): hypotension related to acute blood loss anemia expected from this kind of surgery, thanks Thank you Maryuri Ricky Principal Diagnosis: "that condition established after study, to be chiefly responsible for occasioning the admission of the patient to the hospital for care." Co-Existing Principal Diagnosis: "when two or more diagnoses equally meet the criteria for principal diagnosis as determined by the circumstances of admission, diagnostic work up, and/or therapy provided, and the Alphabetic Index, Tabular List, or another coding guideline does not provide sequencing direction, any one of the diagnoses may be sequenced first." "When the physician has documented what appears to be a current diagnosis in the body of the record, but has not included the diagnosis in the final diagnostic statement, the physician should be asked whether the diagnosis should be added." (Source [facility]oding [facility] 2 QTR90. p3-4) TAVARES
--- NOTE | 2025-01-19 16:28 | Communication Note ---
Date of Service: January 19, 2025 Lumbar surgery 01/[address] Lechuga. Presented to [place] ED with severe/increased LBP and left foot drop with decreased sensation. MRI done and showed epidural fluid collection compressing thecal sac. Afebrile, no leukocytosis. ED discussed with Dr. Lechuga, I accepted transfer and he will consult. Ddx hematoma, seroma, less likely epidural abscess given time course and lack of inflammatory signs. I spoke with ED physician Dr. Koehler for verbal signout.
== END 2025-01-18 13:58 | disposition home or self-care (01) | DRG 402 ==
LOC: ASU 05:52 → 3E 07:30

== ENCOUNTER 2025-01-19 16:34 | Observation (INO) ==
[2025-01-19] MEDS: MoRPHine SULFATE 2 MG/ML CARP IV STA (21:54)
--- NOTE | 2025-01-19 21:55 | History & Physical Report ---
Date of Service January 19, 2025 Assessment & Plan (1) Lumbosacral radiculitis: (2) S/P lumbar spinal fusion: (3) Diabetes type 2, controlled: Plan 69-year-old female PMHx lumbar radiculopathy, T2DM, hypothyroidism, urinary retention, depression and bipolar disorder, with most recent hospital course 01/14/2025 until 01/18/2025 for lumbosacral radiculitis foraminal stenosis and s/p lumbar laminectomy/decompression was presenting as a direct admission for worsening low back pain with associated L foot drop. Outpatient MRI did reveal epidural fluid collection compressing thecal sac, no additional laboratory abnormalities were identified. #Lumbar radiculopathy S/p lumbar laminectomy and decompression for lumbosacral radiculitis with foraminal stenosis, discharged 01/18/2025 and brought to rehab facility. Worsening back pain since discharge with reported foot drop. Patient without fever or chills, no additional infectious symptoms. Completed dexamethasone. On Tizanidine outpatient. - CBC, CMP pending - UA pending, bladder scan pending - MRI (outpatient) peripherally enhancing epidural fluid collection L3-L4 through L5-S1 disc space with mass effect along posterior thecal sac moderate to severe narrowing the thecal sac at these levels crowding of the cauda equina, small fluid collection L3-L4 and L5-S1 laminectomy site, 2 large subcu fluid collection deep to skin roxann, also with edema enhancement throughout paraspinal musculature, clumping of cauda equina suggesting arachnoiditis - Pain management- Acetaminophen, Dilaudid - Dexamethasone 40mg IV given on arrival - add additional as appropriate/per ortho recs - Continue muscle relaxers - Tizanidine - Zofran prn N/V - NPO midnight - Dr Lechuga has been consulted, plans to evaluate patient in AM - appreciate input + recs #T2DM H/o DMT2; at home regimen metformin, tirzepatide. - Most recent A1C 12/1014 @ 5.15 - Hold outpatient meds - SSI with target BSG range 110-140mg/dL, CF 30, carb ratio deferred - BSG ACHS - Pharm glycemic management consult placed, appreciate assistance adjust regimen as needed #HLD- Atorvastatin #Hypothyroidism- Levothyroxine #Urinary retention- Tamsulosin; Cath was placed at outpatient facility 2/2 urinary retention - patient states was unable to urinate on own so it was placed #Bipolar/depression/Insomnia- Bupropion, buspirone, trazodone, quetiapine, lamotrigine #GERD- Pantoprazole #Asthma- Inhalers #IBS- Linzess HOLD po meds once npo. HOLD ASA. Dispo: Admit, med/sx VTE Prophylaxis: SCDs This document was dictated utilizing Text[employer]. Please excuse any grammatical errors that may be secondary to use of this software. Admission and Anticipated Discharge Date Admission Date: January 19, 2025 History of Present Illness Chief Complaint: Back pain, foot drop Primary Care Provider: Jennifer Peng, 69-year-old female PMHx lumbar radiculopathy, T2DM, hypothyroidism, urinary retention, depression and bipolar disorder, with most recent hospital course 01/14/2025 until 01/18/2025 for lumbosacral radiculitis foraminal stenosis and s/p lumbar laminectomy/decompression was presenting as a direct admission for worsening low back pain with associated L foot drop. States that 2 nights [employer] the pain became unbearable and she was not receiving her pain meds as ordered from outpatient facility. Also was having numbness/tingling to LLE near ankle, minimally at L thigh stating that it "feels just a little bit different." No saddle anesthesia. With urinary retention and currently a catheter in place, also has history of retention. States that the pain comes and goes, spasm like and severe. 10/10 pain on the pain scale. Shooting down bilateral legs. No fever/chills. No chest pain, SOB, palpitations, abdominal pain, N/V/D/C, extremity weakness, syncope, or URI symptoms. No LUTS otherwise. Outpatient labs revealed CBC without leukocytosis, H&H 10.2/31.7, elevated CRP 1.72, lactic acid at 1; pending labs.; Outpatient MRI revealed peripherally enhancing epidural fluid collection L3-L4 through L5-S1 disc space with mass effect along posterior thecal sac moderate to severe narrowing the thecal sac at these levels crowding of the cauda equina, small fluid collection L3-L4 and L5-S1 laminectomy site, 2 large subcu fluid collection deep to skin roxann, also with edema enhancement throughout paraspinal musculature, clumping of cauda equina suggesting arachnoiditis. Pending CBC, CMP, UA. Please see Dr. Marin's attestation for adjustments/additions to treatment plan. Allergies Allergy/AdvReac Type Severity Reaction Status Date / Time pollen extracts Allergy Intermediate Itchy Verified 01/14/25 06:14 eyes, runny nose, sneezing No Known Drug Allergies Allergy Unknown Unknown Verified 01/14/25 06:14 Home Medications Medication Instructions Recorded Confirmed Type multivitamin 1 tab PO QAM 12/02/19 01/19/25 History cholecalciferol (vitamin D3) 25 25 mcg PO QAM 11/22/20 01/19/25 History mcg (1,000 unit) capsule (Vitamin D3) cyanocobalamin (vitamin B-12) 1,000 mcg PO QAM 11/22/20 01/19/25 History 1,000 mcg tablet (Vitamin B-12) vitamin A 2,400 mcg capsule 8,000 unit PO QAM 11/22/20 01/19/25 History nebulizer accessories #1 ea 08/28/22 01/06/25 Rx melatonin 5 mg capsule 10 mg PO HS 11/19/23 01/19/25 History fluticasone furoate 100 1 inh inhalation DAILY PRN 03/09/24 01/19/25 History mcg-vilanterol 25 mcg/dose Shortness Of Breath inhalation powder (Breo Ellipta) atorvastatin 40 mg tablet 40 mg PO QAM #90 tabs 07/20/24 01/19/25 Rx lamotrigine 100 mg tablet 200 mg (2 x 100 mg) PO BID #120 09/17/24 01/19/25 Rx tabs quetiapine 25 mg tablet 25 mg PO QID #120 tabs 09/17/24 01/19/25 Rx metformin 1,000 mg tablet 1,000 mg PO BID #180 tabs 09/20/24 01/19/25 Rx albuterol sulfate 90 mcg/actuation 2 puff inhalation Q6H PRN 09/24/24 01/19/25 Rx aerosol inhaler shortness of breath or wheezing #6.7 grams furosemide 20 mg tablet (Lasix) 40 mg (2 x 20 mg) PO QAM #90 tabs 09/24/24 01/19/25 Rx quetiapine 300 mg tablet 300 mg PO HS #90 tabs 10/12/24 01/19/25 Rx buspirone 10 mg tablet 20 mg (2 x 10 mg) PO TID #540 tabs 11/16/24 01/19/25 Rx aspirin 81 mg tablet,delayed 81 mg PO HS 11/18/24 01/19/25 History release potassium chloride 10 mEq 20 meq PO QAM 11/18/24 01/19/25 History tablet,extended release(part/cryst) albuterol sulfate 2.5 mg/3 mL 2.5 mg (3 mL) inhalation QID PRN 11/30/24 01/19/25 Rx (0.083 %) solution for nebulization shortness of breath or wheezing #90 mL azelastine 137 mcg (0.1 %) nasal 2 spray intranasal BID PRN 11/30/24 01/19/25 Rx spray congestion #30 mL fluticasone propionate 50 2 spray intranasal BID PRN 11/30/24 01/19/25 Rx mcg/actuation nasal allergies #16 grams spray,suspension (Flonase Allergy Relief) levothyroxine 100 mcg tablet 100 mcg PO QAM 01/03/25 01/19/25 History linaclotide 290 mcg capsule 290 mcg PO QAM Diarrhea 01/03/25 01/19/25 History meloxicam 15 mg tablet 15 mg PO QPM 01/03/25 01/19/25 History nystatin 100,000 unit/gram topical 1 applic topical BID PRN Rash 01/03/25 01/19/25 History cream pantoprazole 40 mg tablet,delayed 40 mg PO BID 01/03/25 01/19/25 History release trazodone 100 mg tablet 100 mg PO HS #90 tabs 01/11/25 01/19/25 Rx tirzepatide 5 mg/0.5 mL 5 mg (0.5 mL) subcut .weekly #2 mL 01/13/25 01/19/25 Rx subcutaneous pen injector (Erick) tamsulosin 0.4 mg capsule (Flomax) 0.4 mg PO QPM #30 caps 01/17/25 01/19/25 Rx acetaminophen 500 mg tablet 1,000 mg (2 x 500 mg) PO Q8H PRN 04/29/25 04/30/25 Rx pain #180 tabs gabapentin 300 mg capsule 300 mg PO TID #90 caps 01/18/25 Rx ondansetron 4 mg disintegrating 4 mg PO Q6H PRN nausea and 01/18/25 01/19/25 Rx tablet vomiting #20 tabs oxycodone 5 mg tablet 5 mg PO Q6H PRN pain #30 tabs 01/18/25 01/19/25 Rx tizanidine 4 mg capsule 4 mg PO TID PRN muscle spasticity 01/18/25 01/19/25 Rx #30 caps bupropion HCl 150 mg tablet,12 hr 150 mg PO BID #180 ea 01/19/25 01/19/25 Rx sustained-release (Wellbutrin SR) Past Med/Surg History Problem List (Updated 01/19/25 @ 23:16 by Meet Lechuga MD) S/P lumbar spinal fusion Rectocele Lumbosacral spondylosis Lumbosacral radiculitis Foraminal stenosis of lumbosacral region Spondylolisthesis, lumbosacral region Lumbar foraminal stenosis Chronic constipation Lumbar stenosis with neurogenic claudication Urinary retention Bulging lumbar disc Lumbar stenosis Greater trochanteric bursitis Lumbar radicular pain MCI (mild cognitive impairment) Dysphagia Encounter for pre-operative examination Urinary incontinence Chronic mixed headache syndrome ETD (eustachian tube dysfunction) Migraine Depression Irritable bowel syndrome with constipation Left asymmetrical SNHL Seasonal allergies Sarcoidosis Obesity Insomnia Hypothyroid Medical History Urinary retention flomax daily Urinary incontinence Sarcoidosis Stable, "in remission" Lumbar stenosis Insomnia Hypothyroidism Chronic constipation Allergy-induced asthma Diabetes mellitus with diabetic neuropathy GERD (gastroesophageal reflux disease) Sensorineural hearing loss of both ears Osteoarthritis Diabetes type 2, controlled Bipolar 1 disorder, depressed Sacroiliitis Memory loss Cognitive complaints Memory impairment, under surveillance Hypomagnesemia Morbid obesity with BMI of 40.0-44.9, adult History of kidney stones COVID-19 11/2020- PNA, [facility] admission x1 week on supplemental oxygen 09/2021 (home test)- head cold symptoms/sinus issues > resolved Surgical History Nausea and vomiting after administration of anesthetic agent Single episode History of esophageal dilatation History of colonoscopy History of total hysterectomy with bilateral salpingo-oophorectomy (BSO) History of cervical discectomy + fusion History of total right knee replacement (TKR) History of total left knee replacement (TKR) History of tooth extraction History of wisdom tooth extraction History of esophagogastroduodenoscopy (EGD) History of bilateral cataract extraction History of cardiac cath 20+ years ago ([facility])- no stents History of lymph node biopsy For sarcoidosis diagnosis Hx of tubal ligation S/P appendectomy History of cholecystectomy Family History Aunt Breast cancer, Onset Age: 50 Father Myocardial infarction, Onset Age: 50 Dementia Mother Lung cancer Lung disease Father Depression Heart disease Parkinson disease Sister Anxiety Daughter , age 34 Accidental overdose Other No family history of adverse response to anesthesia Denies family history of Ovarian cancer Prostate cancer Colorectal cancer Social History Smoking Status: Never smoker Second Hand Exposure: Yes (hx as child); Do You Dip or Chew Tobacco: No; Hx Alcohol Use: No Hx Substance Use: No Preferred Language: Urdu Communication Ability: Effective Visual Impairment: Partially Limited Hearing Ability: Normal Title I Paraprofessional Required: No Beliefs That Will Affect Care: None marital status: Current Living Situation: Spouse and Rehab Current Living Situation Comment: from rehab, home with at baseline current occupational status: disabled Feels Safe at Home: Yes Safety Concerns: Feels Safe At This Time Childhood Exposure to Second-Hand Smoke: Yes Diet: regular Diet Comment: Regular caffeine: Yes (1 to 2 cups coffee daily) during the past year weight has: remained stable Dental Care, Regularly: No Physical Activity Frequency: 3-4 Times per Week Physical Activity Frequency Comment: walking-limited by physical condition Seatbelt Use: always Sunscreen Use: Yes Assistive Devices: Walker Review of Systems Review of Systems: All systems reviewed & are unremarkable except as noted in Subjective Physical Exam Physical Exam: General: Uncomfortable, in pain Skin: Warm and dry; surgical site without edema/erythema, no discharge Head: Normocephalic, atraumatic Eyes: PERRL, conjunctivae clear, sclera non-icteric ENT: External ear and ear canal without swelling; nose atraumatic; good dentition, tongue normal appearance, pharynx normal Neck: Supple, no LAD Cardio: RRR, no M/G/R, S1 and S2 normal Resp: No respiratory distress, Lungs CTA in all lobes bilaterally, no wheezes, rales, or rhonchi Abdomen: Soft, symmetric, nontender; No masses or hepatosplenomegaly; Bowel sounds normoactive MSK: No deformities; pulses palpable and equal; no edema. Neuro: Awake, alert; Decreased sensation LLE at ankle, "feels a little different" a L thigh; able to follow commands BLE but limited 2/2 pain; CN grossly intact otherwise Psych: Tearful, crying out in pain Results & Data Results & Data Laboratory Results 01/19/25 22:00 POC Glucose 93 Code Status & VTE Plan Code Status Full Supervising Physician Co-Signing Physician Notes I personally saw and examined the patient. I independently reviewed the labs, EKG, imaging, problem list, medication list, past medical history and family history. I verified all diaz points and agree with Alesha Moscoso PA-C with the following exceptions and/or additions: 69 year old direct transfer for back pain and left foot numbness and concern for foot drop following lumbar spine surgery O/E HS RRR, no murmurs, Chest CTAB, Abdo SNT, numbness dorsal aspect foot bilaterally L > R, no foot drop on exam with 5/5 plantarflex/dorsiflex power bilaterally A/P Lumbar radiculopathy, post operative back pain - routine acetaminophen, PRN Dilaudid, PRN tizanidine, IV dexamethasone, consult ortho spine for ongoing recommendations PG Care Time/CCT Total # of Minutes Spent Total Time Spent with Patient: Total time spent is greater than 50% in coordination of care (as documented) at patient's floor/unit and/or counseling patient: Coding Level of Care Code 54448 INT INP/OBS CARE 3/75MIN Diagnoses Lumbosacral radiculitis M54.17 S/P lumbar spinal fusion Z98.1 Diabetes type 2, controlled E11.9 Diabetes mellitus prison insulin use: without long term care phlebotomist use (3) Diabetes type 2, controlled Diabetes mellitus prison insulin use: without prison use
[2025-01-19] MEDS ORDERED: MoRPHine SULFATE 2 MG/ML CARP IV PRN (22:08)
[2025-01-19] MEDS: MoRPHine SULFATE 4 MG/ML 1 ML CARP\\VIAL IV PRN (22:14)
[2025-01-19] MEDS ORDERED: MELATONIN 3 MG TAB PO PRN (22:18)
[2025-01-19] MEDS ORDERED: ONDANSETRON INJ 2 MG/ML 2 ML VIAL IV PRN (22:18)
[2025-01-19] MEDS ORDERED: HYDROmorphone INJ 1 MG/ML SYRINGE IV PRN ×2 (22:18→23:24)
[2025-01-19] MEDS ORDERED: NALOXONE HCL 0.4 MG/1 ML VIAL/CARP IV PRN (22:44)
[2025-01-19] MEDS ORDERED: GLUCAGON FOR INJ 1 MG VIAL SQ PRN (22:47)
[2025-01-19] MEDS ORDERED: DEXTROSE 50% 50 ML SYRINGE IV PRN (22:47)
[2025-01-19] MEDS ORDERED: PHARMACY GLYCEMIC MGMT CONSULT PRN (22:47)
[2025-01-19] MEDS ORDERED: GLUCOSE 40% GEL 15 GM TUBE PO PRN (22:47)
[2025-01-19] MEDS ORDERED: CARBOHYDRATES FOR HYPOGLYCEMIA PO PRN (22:47)
[2025-01-19] MEDS ORDERED: GLUCOSE 10 TAB/TUBE PO PRN (22:47)
[2025-01-19] MEDS ORDERED: Patient's HEIGHT &/or WEIGHT Needed STA (22:52)
[2025-01-19] MEDS: ACETAMINOPHEN 1,000 MG/100 ML VIAL IV SCH (22:59)
[2025-01-19] MEDS ORDERED: ALBUTEROL HFA 8 GM INHALER INH PRN (23:04)
[2025-01-19] MEDS ORDERED: ALBUTEROL 0.083% NEBU SOLN 3 ML VIAL INH PRN (23:04)
[2025-01-19] MEDS: HYDROmorphone INJ 0.5 MG/0.5 ML SYR IV STA (23:09)
[2025-01-19 23:14] LABS: Hematocrit (blood only) 28.9 % (37.0-47.0); Hemoglobin 9.3 g/dl (12.0-16.0); Mean Corpuscular Hemoglobin 29.4 pg (25.0-34.0); Mean Corpuscular Hgb Conc 32.2 g/dL (32.0-36.0); Mean Corpuscular Volume 91.5 fL (80.0-100.0); Mean Platelet Volume 10.9 fL (9.4-12.4); Platelet Count 141 K/uL (130-400); RDW Coefficient of Variation 14.5 % (11.5-14.5); RDW Standard Deviation 48.9 fL (36.4-46.3); Red Blood Count 3.16 M/uL (4.20-5.40); White Blood Count 5.33 K/ul (4.8-10.8)
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
[2025-01-19 23:31] LABS: Albumin Globulin Ratio 1.7 (0.9-2); Albumin Level 3.2 gm/dl (3.4-5.0); BUN Creatinine Ratio 13.4 (10-20); Bilirubin,Total 0.8 mg/dl (0.2-1.0); Calcium 8.3 mg/dl (8.6-10.3); Globulin 1.9 gm/dl (2.5-4.0); Potassium 3.9 mmol/L (3.5-5.1); Total Protein 5.1 gm/dl (6.0-8.3)
[2025-01-20] MEDS: TAMSULOSIN HCL 0.4 MG CAP PO STA (01:21)
[2025-01-20] MEDS: PANTOprazole 40 MG TAB PO STA (01:21)
[2025-01-20] MEDS: QUEtiapine FUMARATE 300 MG TABLET PO STA (01:21)
[2025-01-20] MEDS: lamoTRIgine 100 MG TAB PO STA (01:21)
[2025-01-20] MEDS: buPROPion SR 150 MG TABCR PO STA (01:22)
[2025-01-20] MEDS: busPIRone 5 MG TAB PO STA (01:22)
[2025-01-20] MEDS: dexAMETHasone 40 MG in DEXTROSE 5% 25 ML IV ONE (01:24)
[2025-01-20 01:40] LABS: Appearance Urine Clear (Clear); Bacteria Urine Automated None Seen (None Seen); Bilirubin Urine Negative (Negative); Blood Urine Negative (Negative); Cast Urine Automated 0-2 /lpf (0-2); Color Urine Yellow; Epithelial Cell Urine Auto 0-2 /hpf (0-2); Glucose Urine UA Negative (Negative); Ketones Urine Negative (Negative); Leukocyte Esterase Urine 1+ (Negative); Nitrite Urine Negative (Negative); Protein Urine Negative (Negative); RBC Urine Automated 0-2 /hpf (0-2); Specific Gravity Urine 1.006 (1.000-1.030); Urobilinogen Urine Negative (Negative)
[2025-01-20] MEDS: LEVOTHYROXINE SODIUM 100 MCG TABLET PO SCH (05:53)
[2025-01-20] MEDS: INSULIN ASPART PER UNIT CHARGE SC SCH ×2 (05:56→17:31)
[2025-01-20] MEDS ORDERED: INSULIN ASPART PER UNIT CHARGE SC SCH (07:30)
[2025-01-20 07:36] LABS: Basophils # (auto) 0.01 K/uL (0.00-0.20); Basophils % (auto) 0.2 %; Eosinophils # (auto) 0.05 K/uL (0.00-0.50); Eosinophils % (auto) 1.2 %; Hematocrit (blood only) 30.9 % (37.0-47.0); Hemoglobin 10.2 g/dl (12.0-16.0); Immature Granulocytes # (auto) 0.02 K/uL (0.01-0.20); Immature Granulocytes % (auto) 0.5 %; Lymphocytes # (auto) 0.51 K/uL (1.20-3.40); Lymphocytes % (auto) 12.5 %; Mean Corpuscular Hemoglobin 29.7 pg (25.0-34.0); Mean Corpuscular Volume 90.1 fL (80.0-100.0); Mean Platelet Volume 10.9 fL (9.4-12.4); Monocytes # (auto) 0.12 K/uL (0.11-0.59); Monocytes % (auto) 2.9 %; Neutrophils # (auto) 3.36 K/uL (1.40-6.50); Neutrophils % (auto) 82.7 %; Platelet Count 144 K/uL (130-400); RDW Coefficient of Variation 14.4 % (11.5-14.5); RDW Standard Deviation 46.9 fL (36.4-46.3); Red Blood Count 3.43 M/uL (4.20-5.40); White Blood Count 4.07 K/ul (4.8-10.8)
[2025-01-20 07:59] LABS: Albumin Globulin Ratio 1.5 (0.9-2); Albumin Level 3.4 gm/dl (3.4-5.0); BUN Creatinine Ratio 19.7 (10-20); Bilirubin,Total 0.8 mg/dl (0.2-1.0); Calcium 8.8 mg/dl (8.6-10.3); Creatinine Clr Calc Pharmacy 107.7 ml/min; Globulin 2.2 gm/dl (2.5-4.0); Potassium 4.1 mmol/L (3.5-5.1); Total Protein 5.6 gm/dl (6.0-8.3)
[2025-01-20 08:06] LABS: Partial Thromboplastin Ratio 1.1; Partial Thromboplastin Time 29 Seconds (21-31); Prothrombin Time 10.4 Seconds (9.0-12.0)
--- NOTE | 2025-01-20 08:51 | Pharmacy Report ---
Pharmacy Glycemic Short Note 2 - Date of Service January 20, 2025 - Glycemic Short BSG Results (Last 24 hours): 01/19/25 01/19/25 01/20/25 22:00 22:44 05:46 Glucose 92 POC Glucose 93 120 H 01/20/25 06:45 Glucose 131 H POC Glucose OUTPATIENT ANTIDIABETIC REGIMEN: * metformin 1 g PO BIDM * tirzepatide 5 mg SC weekly HbA1c: 5.1% (01/03/25) ASSESSMENT: * SY is a 69 year old female POD #6 s/p lumbar spinal fusion recently discharged on 01/18 and readmitted due to worsening lower back pain and left foot drop * Blood sugars were well controlled during prior admission with minimal insulin * Dexamethasone 40 mg IV x 1 given overnight, now ordered 10 mg IV q8h ongoing * No plans for surgical intervention currently * NPO at this time PLAN FOR INPATIENT GLYCEMIC CONTROL: * Hold outpatient oral diabetes medications * Basal insulin * Lantus 10 units SC x 1 to cover IV dexamethasone * Bolus insulin * NovoLog per scale ACHS or Q6hrs while NPO * Goal Range: Low 110 mg/dL - High 140 mg/dL * Correction Factor: 30 mg/dL/unit * Nutritional / Prandial insulin per carb ratio of 1 unit per 10 grams CHO consumed
--- NOTE | 2025-01-20 09:09 | Orthopedic Progress Note ---
Date of Service January 20, 2025 Assessment & Plan (1) S/P lumbar spinal fusion: Plan 69-year-old woman POD#6 s/p L5-S1 Transforaminal Lumbar Interbody Fusion with Posterolateral Fusion, L5 Laminectomy and Facetectomy at Site of Interbody Fusion, placement of posterior instrumentation, and L3 Laminectomy with Medial Facetectomy with CT navigation. She is overall improving pain adam. She is also having less pain with moving the lower extremities. She has already noted these things since last night. The diminished sensation to left L5/S1 dermatome is questionably improved objectively on exam today. Weakness to left ankle dorsiflexion and EHL persists, but is no worse since her admission. We have been getting reports from nursing and the hospitalist service that the patient is objectively improving from their standpoint as well, as she has been able to lift the left leg off of the bed and dorsi/plantarflex the left ankle for them. At this point, the patient may be taken off of NPO status and may have dinner. I explained to the hospitalist that should she not have return of severe pain or any concerning symptoms, that we will likely not return her to NPO tonight. No current plan for surgical intervention to evacuate any fluid collections. Plan: 1. DVT prophylaxis w/ regular ambulation/mobilization and SCDs. 2. PT/OT for mobilization so we can gauge pain and functional status. WBAT and AAT. 3. For now, maintain daily dry dressing changes with monitoring for any drainage. 4. Discontinue Clifford catheter once ambulatory with PT/OT. 5. Disposition - pending PT/OT and overall progress with pain and functional status. Patient needs to have discussions with case management. Of note, the patient does seem to truly have had a quite bad experience during her time at [facility]. It is felt that she is in a much better place mentally at this time now that she has returned to [facility]. 6. Follow-up will be pending further checkups and progress. Subjective Patient is POD#6 s/p: Operation Date: 01/14/25 07:30 Actual Procedures L5-S1 Transforaminal Lumbar Interbody Fusion with Posterolateral Fusion (55434) L5 Laminectomy and Facetectomy at Site of Interbody Fusion (61778) Insertion Interbody Device for Fusion L5-S1 (60629) Non-Segmental Pedicle Screw Instrumentation L5-S1 (76643) L3 Laminectomy with Medial Facetectomy (08072) Stereotactic CT Navigation for Spinal Instrumentation (95935) Allograft and Autograft for Spinal Fusion (22755, 78837) Operative site surgical pain is overall improved compared to the more immediate postoperative period. Numbness to the anterolateral left lower leg and into the dorsal ankle/foot remains at baseline, no worse. She reports no improvement there, but there does actually seem to be some mild improvement in resistive left ankle dorsiflexion, and she was recently walking with physical therapy. She no longer even mentions any left sided hip/groin region radiculopathy symptoms. Her biggest complaint is that she experiences posterior buttocks, thigh, and lower leg pain with active movement of the lower extremities, however, this does seem to be improving as well. Patient has been able to roll herself to the sides without any significant pain today, which she says she was unable to do last night when she arrived here from [facility]. So, she sees this as an improvement. She feels in better spirits overall, as she feels safer being here compared to when she was recently in [facility]. Review of Systems All systems reviewed & are unremarkable except as noted in HPI & below. Physical Exam GENERAL: Speech and cognition is intact. Mood and affect is appropriate. Does not appear in acute distress. HEAD: Normocephalic; atraumatic. CHEST: Regular chest respiration and excursion. NEURO: Awake, alert, and oriented x 3. BACK: Dressing intact to lumbar spine with no evidence of saturation. Dipak intact. No evidence of erythema, drainage, or abnormal warmth; no fluid collection noted on inspection or palpation. No evidence of oscar-incisional erythema. LOWER EXTREMITIES: Sensation intact to light touch of the bilateral L2-S1 dermatomes, however the left L5/S1 remains slightly diminished in the distal tibia region and into the dorsal ankle/foot. Plantar/dorsiflexion intact bilaterally, however with weakness to dorsiflexion on the left at 3/5. Palpable PT/DP pulses, 2+. R Hip flexion 5/5; knee extension 5/5; knee flexion 5/5; ankle dorsiflexion 5/5; ankle plantar flexion 5/5; EHL 5/5 L Hip flexion 5/5; knee extension 5/5; knee flexion 4+/5; ankle dorsiflexion 3/5; ankle plantar flexion 5/5; EHL 4/5 (weakness at least in part due to apprehension and pain) Results & Data Results & Data Laboratory Results . Laboratory Results - last 24 hr 01/19/25 01/19/25 01/20/25 22:00 22:44 01:10 WBC 5.33 RBC 3.16 L Hgb 9.3 L Hct 28.9 L MCV 91.5 MCH 29.4 MCHC 32.2 RDW Std Deviation 48.9 H RDW Coeff of [place] 14.5 Plt Count 141 MPV 10.9 Immature Gran % (Auto) Neut % (Auto) Lymph % (Auto) [place] % (Auto) Eos % (Auto) Baso % (Auto) Neut # (Auto) Lymph # (Auto) Gooding # (Auto) Eos # (Auto) Baso # (Auto) Immature Gran # (Auto) PT INR APTT PTT Ratio Sodium 141 Potassium 3.9 Chloride 104 Carbon Dioxide 32 Anion Gap 5 BUN 9 Creatinine 0.67 Est Cr Clr Drug Dosing 98.0 eGFR 95.74 BUN/Creatinine Ratio 13.4 Glucose 92 POC Glucose 93 Calcium 8.3 L Total Bilirubin 0.8 AST 9 L ALT 6 L Alkaline Phosphatase 45 Total Protein 5.1 L Albumin 3.2 L Globulin 1.9 L Albumin/Globulin Ratio 1.7 Urine Color Yellow Urine Appearance Clear Urine pH 6.0 Ur Specific [place] 1.006 Urine Protein Negative Urine Glucose (UA) Negative Urine Ketones Negative Urine Blood Negative Urine Nitrite Negative Urine Bilirubin Negative Urine Urobilinogen Negative Ur Leukocyte Esterase 1+ H Urine WBC (Auto) 6-10 H Urine RBC (Auto) 0-2 U Hyaline Cast (Auto) 0-2 U Epithel Cells (Auto) 0-2 Urine Bacteria (Auto) None Seen 01/20/25 01/20/25 01/20/25 05:46 06:45 11:22 WBC 4.07 L RBC 3.43 L Hgb 10.2 L Hct 30.9 L MCV 90.1 MCH 29.7 MCHC 33.0 RDW Std Deviation 46.9 H RDW Coeff of [place] 14.4 Plt Count 144 MPV 10.9 Immature Gran % (Auto) 0.5 Neut % (Auto) 82.7 Lymph % (Auto) 12.5 Good[place] % (Auto) 2.9 Eos % (Auto) 1.2 Baso % (Auto) 0.2 Neut # (Auto) 3.36 Lymph # (Auto) 0.51 L Gooding # (Auto) 0.12 Eos # (Auto) 0.05 Baso # (Auto) 0.01 Immature Gran # (Auto) 0.02 PT 10.4 INR 1.0 APTT 29 PTT Ratio 1.1 Sodium 141 Potassium 4.1 Chloride 104 Carbon Dioxide 32 Anion Gap 5 BUN 12 Creatinine 0.61 Est Cr Clr Drug Dosing 107.7 eGFR 97.93 BUN/Creatinine Ratio 19.7 Glucose 131 H POC Glucose 120 H 149 H Calcium 8.8 Total Bilirubin 0.8 AST 10 L ALT 7 Alkaline Phosphatase 52 Total Protein 5.6 L Albumin 3.4 Globulin 2.2 L Albumin/Globulin Ratio 1.5 Urine Color Urine Appearance Urine pH Ur Specific [place] Urine Protein Urine Glucose (UA) Urine Ketones Urine Blood Urine Nitrite Urine Bilirubin Urine Urobilinogen Ur Leukocyte Esterase Urine WBC (Auto) Urine RBC (Auto) U Hyaline Cast (Auto) U Epithel Cells (Auto) Urine Bacteria (Auto) Diagnostic Findings PROCEDURE EXAM DATE/TIME ACCESSION STATUS MRI Spine Lumbar w/ + 01/19/2025 13:23 EDT [id number] Auth (Verified) w/o Contrast Report MRI Spine Lumbar w/ + w/o Contrast HISTORY: Other (please specify) - Post op foot drop Pertinent History PT had low back surgery at [facility] 5 days ago, PT states unable to walk pain and weakness in left leg;Contrast amount in ml's: 10;Contrast; TECHNIQUE: Multiplanar multisequence MRI of the lumbar spine was performed both before and after the intravenous administration of contrast. COMPARISON: Lumbar spine radiograph 05/16/2023. FINDINGS: For the purpose of the report the L5-S1 disc space will be located on axial image 21 of 24. No acute fracture or subluxation within the lumbar spine. The visualized sacrum is intact. Posterior decompression and fusion at L5-S1 with pedicle screws and rods. There is an L5-S1 disc spacer which appears in place. The conus terminates at the L1 level. Suboptimal evaluation of the lumbar spine due to the motion artifact. Additional laminectomy changes at the L3-L4 level. There are midline skin dipak within the lumbar region consistent with recent postoperative change. There is an 8.8 x 4.4 cm subcutaneous fluid collection from the L2-L5 levels which contains a few small foci of gas and partial peripheral enhancement. This favors a postoperative seroma. However, secondary infection would be difficult to exclude. There are additional smaller fluid collections at the laminectomy sites at the L3-L4 and L5-S1 levels which connect to this larger subcutaneous fluid collection. The small fluid collection at the L3-L4 laminectomy site measures approximately 19 x 15 x 11 mm and appears to connect to the epidural space at this location. There appears to be clumping of the cauda equina nerve roots from the L2-L3 disc space through the L5-S1 level suggesting arachnoiditis. There is also posterior epidural fluid seen from the L3-L4 disc space level through the L5-S1 disc space level. This most pronounced at the L4-5 level which measures 7 mm in thickness and results in moderate to severe mass effect along the posterior thecal sac. These epidural fluid collections demonstrate peripheral enhancement. There is mild diffuse epidural enhancement within the lumbar spine. These epidural fluid collections are indeterminate and could represent epidural abscesses, postoperative seromas, or epidural hematoma. An additional fluid collection at the left L5-S1 hemilaminectomy site measures 3.0 x 2.4 cm and also appears to extend into the left posterior epidural space. There is edema and enhancement within the paraspinal musculature at the laminectomy sites. There are small broad-based posterior disc bulges from the L1-L2 through the L4-L5 levels. No evidence for discitis/osteomyelitis at this time. No suspicious osseous lesions. IMPRESSION: 1. Peripherally enhancing posterior epidural fluid collections from the L3-L4 through the L5-S1 disc space levels which connect to the small fluid collections at the L3- L4 and L5-S1 laminectomy sites as described above. These fluid collections demonstrate mass effect along the posterior thecal sac with moderate to severe narrowing of the thecal sac at these levels and crowding of the cauda equina. These fluid collections are indeterminate but could represent epidural abscesses, postoperative seromas, or epidural hematomas. Surgical consultation recommended. 2. The small fluid collections at the L3-L4 and L5-S1 laminectomy site also connect to the large subcutaneous fluid collection deep to the skin dipak. This favors a postoperative seroma. However, secondary infection would be impossible to exclude by imaging. 3. No evidence for discitis/osteomyelitis at this time. Report 4. Edema and enhancement throughout the paraspinal musculature which could be due to the recent postoperative change. Secondary infection would also have a similar appearance. 5. Clumping of the cauda equina suggesting arachnoiditis. 6. These findings were discussed with Rex Koehler at 3:00 PM on 01/19/2025. [id number] LETTER-N/A Final Dictated by: NANCY PHILLIPS MD Dictated DT/TM: 01/19/2025 2:33 pm Signed by: NANCY PHILLIPS MD Signed (Electronic Signature): 01/19/2025 3:04 pm Transcribed by: CORNEL Clinical History: Left foot numbness. Lumbar fusion 01/13/2025. Rule out hematoma Technique: Sagittal and axial T1 and T2-weighted magnetic resonance images were obtained of the lumbar spine before and after the administration of 9 cc of Gadavist gadolinium contrast. Comparison is made to the radiographs obtained earlier today in the prior MRI dated 04/29/2024 Findings: There is an anterior and posterior fusion of L5 and S1 with posterior fixation rods and bilateral pedicle screws and anterior interbody fusion. There is no definite sign of instrumentation failure. There has been an L3 laminectomy. There is a small amount of irregularly shaped fluid in the posterior subcutaneous fat and in the laminectomy bed at the level of L3. This could be due to normal postoperative edema and postoperative seroma. No clear abscess or hematoma is seen. There is a surgical drain in the laminectomy bed at the level of L3. No clear area of abnormal enhancement is seen The lumbar vertebrae are in normal alignment. There is an unchanged mild old compression fracture of the superior endplate of the L4 vertebral body with loss of up to 20% of the vertebral body height. No other fracture is identified. There is no definite sign of infection. There is no sign of acute ligamentous injury. The conus medullaris appears normal, terminating at the level of L1. At L1-L2, there is a disc bulge and a small central disc protrusion, without spinal stenosis or compression of the traversing nerve roots. There is mild left and minimal right neural foramen narrowing. At L2-L3, there is a disc bulge and a mild broad-based central disc protrusion. There is mild right and minimal left neural foramen narrowing. There is no spinal stenosis or clear nerve root compression. At L3-L4, there is a disc bulge without spinal stenosis. There is right greater than left neural foramen narrowing that may affect the right L3 nerve root. At L4-L5, there is a disc bulge without spinal stenosis. There is facet osteoarthritis. There is right greater than left neural foramen narrowing that may affect the right L4 nerve root At L5-S1, there is a disc bulge without spinal stenosis. There is bilateral neural foramen narrowing that may affect the exiting L5 nerve roots Impression: 1. L5-S1 fusion 2. L3 laminectomy with a surgical drain in place. There is a small amount of fluid and edema within and posterior to the laminectomy bed, likely within normal limits for recent surgery. There is no clear hematoma or abscess 3. Unchanged mild old L4 compression fracture 4. Lumbar disc bulges and disc protrusions, without spinal stenosis 5. Right L3-4 and L4-5 and bilateral L5-S1 neural foramen narrowing, which may affect the exiting nerve roots ACT 112: Positive. There are findings on this exam that require communication between the performing entity and the patient following Patient Test Result Information Act ([place] ACT 112) guidelines. Electronically signed by Vladimir Gupta 01-15-2025 13:23 PM Dictated: 01/15/25 1225 PG Care Time/CCT Total # of Minutes Spent Total Time Spent with Patient: Total time spent is greater than 50% in coordination of care (as documented) at patient's floor/unit and/or counseling patient: [place] [address] Post Operative Follow-Up Patient Type Established History Problem Focused Exam Problem Focused Medical Decision Making Moderate Complexity Diagnoses S/P lumbar spinal fusion Z98.1
[2025-01-20] MEDS: ATORVASTATIN 40 MG TAB PO SCH (09:47)
[2025-01-20] MEDS: buPROPion SR 150 MG TABCR PO SCH (09:48)
[2025-01-20] MEDS: FLUTICASONE/VILANTEROL 100/25MCG 14 PUFFS/INHALER INH SCH (09:48)
[2025-01-20] MEDS: busPIRone 5 MG TAB PO SCH (09:48)
[2025-01-20] MEDS: lamoTRIgine 100 MG TAB PO SCH (09:49)
[2025-01-20] MEDS: FUROSEMIDE 40 MG TAB PO SCH (09:49)
[2025-01-20] MEDS: POTASSIUM CHLORIDE 10 MEQ TABCR PO SCH (09:50)
[2025-01-20] MEDS: QUEtiapine FUMARATE 25 MG TABLET PO SCH (09:50)
[2025-01-20] MEDS: PANTOprazole 40 MG TAB PO SCH (09:50)
[2025-01-20] MEDS: oxyCODONE HCL IR 5 MG TAB (IMMEDIATE RELEASE) PO PRN (11:29)
[2025-01-20] MEDS: dexAMETHasone 10 MG in SYRINGE 0 ML IV SCH (11:31)
[2025-01-20] MEDS: LANTUS PER UNIT CHARGE SC ONE (12:30)
[2025-01-20] MEDS ORDERED: Nursing to Pharmacy Communication SCH (16:30)
--- NOTE | 2025-01-20 17:29 | Hospitalist Progress Note ---
Date of Service January 20, 2025 Assessment & Plan (1) Lumbosacral radiculitis: (2) S/P lumbar spinal fusion: (3) Diabetes type 2, controlled: Plan 69-year-old female PMHx lumbar radiculopathy, T2DM, hypothyroidism, urinary retention, depression and bipolar disorder, with most recent hospital course 01/14/2025 until 01/18/2025 for lumbosacral radiculitis foraminal stenosis and s/p lumbar laminectomy/decompression was presenting as a direct admission for worsening low back pain with associated L foot drop. Outpatient MRI did reveal epidural fluid collection compressing thecal sac, no additional laboratory abnormalities were identified. #Lumbar radiculopathy # postoperative fluid collection S/p lumbar laminectomy and decompression for lumbosacral radiculitis with foraminal stenosis, discharged 01/18/2025 and brought to rehab facility. Worsening back pain since discharge with reported foot drop. Patient without fever or chills, no additional infectious symptoms. MRI (outpatient) peripherally enhancing epidural fluid collection L3-L4 through L5-S1 disc space with mass effect along posterior thecal sac moderate to severe narrowing the thecal sac at these levels crowding of the cauda equina, small fluid collection L3-L4 and L5-S1 laminectomy site, 2 large subcu fluid collection deep to skin roxann, also with edema enhancement throughout paraspinal musculature, clumping of cauda equina suggesting arachnoiditis Dr. Hernandez consulted, discussed with his PA today. No evidence of epidural abscess or cauda equina syndrome. Pain and neurological symptoms improving, we will continue to monitor her progress if she fails to improve she may require surgical drainage. - Continue scheduled acetaminophen, dexamethasone, tizanidine, hydromorphone IV and oxycodone as needed - PT ordered today # urinary retention - she has had this problem in the past and probably not related to her recent spinal surgery, excepting that she is getting opioids and is relatively immobilized urinalysis was negative - Cliffodr catheter placed, continue tamsulosin - evaluate for voiding trial when more mobile and on less opioids #T2DM, steroid-induced hyperglycemia H/o DMT2; at home regimen metformin, tirzepatide. - Most recent A1C 12/1014 @ 5.15 - Hold outpatient meds - SSI with target BSG range 110-140mg/dL, CF 30, carb ratio deferred - BSG ACHS - Pharm glycemic management consult managing #HLD- Atorvastatin #Hypothyroidism- Levothyroxine #Bipolar/depression/Insomnia- Bupropion, buspirone, trazodone, quetiapine, lamotrigine #GERD- Pantoprazole #Asthma- Inhalers #IBS- Linzess aspirin is held, DVT prophylaxis is SCDs she says she does not want to return to her SNF, however she does not meet her insurance providers criteria for inpatient rehab at [facility] Admission and Anticipated Discharge Date Admission Date: January 19, 2025 Subjective I saw Pearl in the afternoon she continues to have significant low back pain postoperatively but it is significantly improved compared to this morning and especially since yesterday when it was very severe she notes improvement in her left lower extremity now she can raise her left leg off the bed and can clear the heel by about 3 to 4 inches, dorsi and plantarflexion are now pretty strong, she still has some numbness around the area of her great toe Physical Exam 2 Physical Exam: PHYSICAL EXAMINATION Last 24h vital signs reviewed, see documentation in flowsheet General: comfortable appearing, no distress HEENT: Normocephalic, atraumatic, pupils round and equal, sclerae anicteric, no conjunctival injection, moist mucus membranes Lungs: Normal respiratory effort. Clear to auscultation bilaterally. No RRW Heart: Regular rate and rhythm, no murmurs. No JVD Abdomen: Soft, nontender, nondistended. Bowel sounds present. Extremities: Warm, dry, well-perfused. No extremity edema. Neuro: Alert and oriented x 4, face symmetric, moves 4 extremities well. has 3+ to 4 - strength at left hip flexor, 4/5 dorsi flexion, 5/5 plantarflexion of left foot Psych: Normal affect and behavior Results & Data Results & Data Vital Signs (Past 12 Hours) Vital Signs Temp Pulse Resp BP BP Pulse Ox O2 Del Method 01/20/25 15:13 36.7 C 77 18 108/65 95 Room Air 01/20/25 10:02 36.4 C L 69 105/67 95 Nasal Cannula 01/20/25 07:37 36.5 C 65 18 109/66 96 Room Air Laboratory Results 01/20/25 06:45 01/20/25 06:45 PG Care Time/CCT Total # of Minutes Spent Total Time Spent with Patient: Total time spent is greater than 50% in coordination of care (as documented) at patient's floor/unit and/or counseling patient: Coding Level of Care Code 47740 SUB INP/OBS CARE 3/50MIN Diagnoses Lumbosacral radiculitis M54.17 S/P lumbar spinal fusion Z98.1 Diabetes type 2, controlled E11.9 Diabetes mellitus planer stone insulin use: without usp use (3) Diabetes type 2, controlled Diabetes mellitus usp insulin use: without planer stone use
[2025-01-20] MEDS: traZODone HCL 100 MG TAB PO SCH (20:12)
[2025-01-20] MEDS: QUEtiapine FUMARATE 300 MG TABLET PO SCH (20:12)
[2025-01-20] MEDS: TAMSULOSIN HCL 0.4 MG CAP PO SCH (20:12)
[2025-01-20] MEDS: HYDROmorphone INJ 0.5 MG/0.5 ML SYR IV PRN (22:40)
[2025-01-21] MEDS: tiZANidine HCL 4 MG TABLET PO PRN (02:43)
[2025-01-21] MEDS: LANTUS PER UNIT CHARGE SC SCH (09:02)
--- NOTE | 2025-01-21 10:10 | Orthopedic Progress Note ---
Date of Service January 21, 2025 Assessment & Plan (1) S/P lumbar spinal fusion: Plan 69-year-old woman POD#7 s/p L5-S1 Transforaminal Lumbar Interbody Fusion with Posterolateral Fusion, L5 Laminectomy and Facetectomy at Site of Interbody Fusion, placement of posterior instrumentation, and L3 Laminectomy with Medial Facetectomy with CT navigation. Pain continues to improve daily to the operative site, as well as into the extremities as far as radicular component type pain. Additionally, numbness and diminished sensation to left L5/S1 dermatome is further improved on exam today. Weakness to left ankle dorsiflexion and EHL is also improved, now at a 4+. Plan: 1. DVT prophylaxis w/ regular ambulation/mobilization and SCDs. 2. Continue PT/OT for mobilization. WBAT and AAT. 3. Continue daily dry dressing changes with monitoring for any drainage; replace dressing if there is any drainage saturation noted. May discontinue dressings if there is no longer any drainage noted. 4. Patient making progress with urination, and has been able to urinate on her own since the Clifford catheter was removed. 5. Disposition -patient making good progress with PT/OT and functional status; PT/OT is again recommending for rehab at discharge. Orthopedically okay for discharge anytime she becomes medically stable and once insurance has authorized her to go to [facility] rehab. 6. Follow-up will be pending further checkups and progress; at this point, likely looking at follow-up in clinic in approximately 1 to 2 weeks. Subjective Patient is POD#7 s/p: Operation Date: 01/14/25 07:30 Actual Procedures L5-S1 Transforaminal Lumbar Interbody Fusion with Posterolateral Fusion (72267) L5 Laminectomy and Facetectomy at Site of Interbody Fusion (94964) Insertion Interbody Device for Fusion L5-S1 (12991) Non-Segmental Pedicle Screw Instrumentation L5-S1 (36605) L3 Laminectomy with Medial Facetectomy (45996) Stereotactic CT Navigation for Spinal Instrumentation (08833) Allograft and Autograft for Spinal Fusion (67657, 46067) Pain overall much improved today. She still does have some pain that goes down through the buttocks bilaterally in the posterior thighs, but now nothing distal to the knee region. She does feel like the pain is centralizing towards the low back. Numbness to the anterolateral left lower leg and into the dorsal ankle/foot is mildly improved. Resistive left ankle dorsiflexion is significantly improved today. She is able to do a straight leg raise with the left lower extremity without pain. She says that she cannot yet lift her leg from a seated position and up onto the bed, but she is working on this. Patient says that she has been able to urinate on 2 or 3 occasions since the Clifford catheter was removed. She says that she has been working with case management on going to [facility] rehab. Review of Systems All systems reviewed & are unremarkable except as noted in HPI & below. Physical Exam GENERAL: Speech and cognition is intact. Mood and affect is appropriate. Does not appear in acute distress. HEAD: Normocephalic; atraumatic. CHEST: Regular chest respiration and excursion. NEURO: Awake, alert, and oriented x 3. BACK: Dressing intact to lumbar spine with very minimal dried saturation noted to the distal third aspect of the incision; no active drainage. [place] intact. No evidence of erythema or abnormal warmth; no fluid collection noted on inspection or palpation. No evidence of oscar-incisional erythema. LOWER EXTREMITIES: Sensation intact to light touch of the bilateral L2-S1 dermatomes, however the left L5/S1 remains slightly diminished in the distal tibia region and into the dorsal ankle/foot (improved over yesterday). Pl butch/dorsiflexion intact bilaterally, however with weakness to dorsiflexion on the left at 4+/5 (significant improvement over yesterday). Palpable PT/DP pulses, 2+. R Hip flexion 5/5; knee extension 5/5; knee flexion 5/5; ankle dorsiflexion 5/5; ankle plantar flexion 5/5; EHL 5/5 L Hip flexion 5/5; knee extension 5/5; knee flexion 5/5; ankle dorsiflexion 4+/5; ankle plantar flexion 5/5; EHL 4+/5 Results & Data Results & Data Laboratory Results . Diagnostic Findings . PG Care Time/CCT Total # of Minutes Spent Total Time Spent with Patient: Total time spent is greater than 50% in coordination of care (as documented) at patient's floor/unit and/or counseling patient: [place] [address] Post Operative Follow-Up Patient Type Established Medical Decision Making Straight Forward Diagnoses S/P lumbar spinal fusion Z98.1
--- NOTE | 2025-01-21 10:24 | Orthopedic Progress Note ---
Date of Service January 20, 2025 Assessment & Plan (1) S/P lumbar spinal fusion: mobilize with PT, pain contrrol, dc de la fuente when mobilizing no pland for surgery as pain has resolved to baseline and motor function improved Subjective Patient has much better pain control, moving legs much better. No concern for infection Review of Systems All systems reviewed & are unremarkable except as noted in HPI & below. Physical Exam 4/5 strength left tib ant, decreased sensation left L5, otherwise neuro intact de la fuente in place Results & Data Results & Data Laboratory Results . Diagnostic Findings . PG Care Time/CCT Total # of Minutes Spent Total Time Spent with Patient: Total time spent is greater than 50% in coordination of care (as documented) at patient's floor/unit and/or counseling patient: Coding Level of Care Code 73199 Post Operative Follow-Up Diagnoses S/P lumbar spinal fusion Z98.1
--- NOTE | 2025-01-21 11:37 | Pharmacy Report ---
Pharmacy Glycemic Short Note 2 - Date of Service January 21, 2025 - Glycemic Short BSG Results (Last 24 hours): 01/20/25 01/20/25 01/21/25 16:41 20:21 07:46 POC Glucose 223 H 177 H 168 H OUTPATIENT ANTIDIABETIC REGIMEN: * metformin 1 g PO BIDM * tirzepatide 5 mg SC weekly * HbA1c: 5.1% (01/03/25) ASSESSMENT: 01/21/25 * BSGs reasonably well-controlled on current insulin regimen, given high-dose IV steroids. * Will continue Lantus for now and re-evaluate if/when steroids are tapered/discontinued. * Pharmacy will continue to follow and adjust insulin regimen as indicated. 01/20/25 * SY is a 69 year old female POD #6 s/p lumbar spinal fusion recently discharged on 01/18 and readmitted due to worsening lower back pain and left foot drop * Blood sugars were well controlled during prior admission with minimal insulin * Dexamethasone 40 mg IV x 1 given overnight, now ordered 10 mg IV q8h ongoing * No plans for surgical intervention currently * NPO at this time PLAN FOR INPATIENT GLYCEMIC CONTROL: * Hold outpatient oral diabetes medications * Basal insulin * Lantus 10 units SC daily, while receiving IV dexamethasone * Bolus insulin * NovoLog per scale ACHS or Q6hrs while NPO * Goal Range: Low 110 mg/dL - High 140 mg/dL * Correction Factor: 30 mg/dL/unit * Nutritional / Prandial insulin per carb ratio of 1 unit per 10 grams CHO consumed
[2025-01-21 20:29] VITALS: RESP 16
--- NOTE | 2025-01-21 20:33 | Hospitalist Progress Note ---
Date of Service January 21, 2025 Assessment & Plan (1) Lumbosacral radiculitis: (2) S/P lumbar spinal fusion: (3) Diabetes type 2, controlled: Plan 69-year-old female PMHx lumbar radiculopathy, T2DM, hypothyroidism, urinary retention, depression and bipolar disorder, with most recent hospital course 01/14/2025 until 01/18/2025 for lumbosacral radiculitis foraminal stenosis and s/p lumbar laminectomy/decompression was presenting as a direct admission for worsening low back pain with associated L foot drop. Outpatient MRI did reveal epidural fluid collection compressing thecal sac, no additional laboratory abnormalities were identified. #Lumbar radiculopathy # postoperative fluid collection S/p lumbar laminectomy and decompression for lumbosacral radiculitis with foraminal stenosis, discharged 01/18/2025 and brought to rehab facility. Worsening back pain since discharge with reported foot drop. Patient without fever or chills, no additional infectious symptoms. MRI (outpatient) peripherally enhancing epidural fluid collection L3-L4 through L5-S1 disc space with mass effect along posterior thecal sac moderate to severe narrowing the thecal sac at these levels crowding of the cauda equina, small fluid collection L3-L4 and L5-S1 laminectomy site, 2 large subcu fluid collection deep to skin roxann, also with edema enhancement throughout paraspinal musculature, clumping of cauda equina suggesting arachnoiditis Dr. Hernandez consulted, reviewed recommendations and progress note today.. No evidence of epidural abscess or cauda equina syndrome. Pain and neurological symptoms improving, Does not require surgical drainage at this time, continue with PT OT and pain control proceeding with discharge to rehab setting - Continue scheduled acetaminophen, dexamethasone, tizanidine, hydromorphone IV and oxycodone as needed - reviewed MAR and she has not used any hydromorphone in past 24 hours I will stop dexamethasone - referral was made to [facility] for acute rehab # urinary retention - she has had this problem in the past and probably not related to her recent spinal surgery, excepting that she is getting opioids and is relatively immobilized urinalysis was negative - Clifford catheter placed - removed and voiding spontaneously at this time #T2DM, steroid-induced hyperglycemia H/o DMT2; at home regimen metformin, tirzepatide. - Most recent A1C 12/1014 @ 5.15 - Hold outpatient meds - SSI with target BSG range 110-140mg/dL, CF 30, carb ratio deferred - BSG ACHS - Pharm glycemic management consult managing - reviewed blood glucose at goal last 24 hours #HLD- Atorvastatin #Hypothyroidism- Levothyroxine #Bipolar/depression/Insomnia- Bupropion, buspirone, trazodone, quetiapine, lamotrigine #GERD- Pantoprazole #Asthma- Inhalers #IBS- Linzess resume at bedtime aspirin she says she does not want to return to her SNF, however she does not meet her insurance providers criteria for inpatient rehab at [facility] Admission and Anticipated Discharge Date Admission Date: January 19, 2025 Subjective doing much better than on admission, still has low back pain especially with moving around but not radiating past hips. Left leg strength improved significantly. No change to numbness anterior thigh and left great toe area Physical Exam Physical Exam: PHYSICAL EXAMINATION Last 24h vital signs reviewed, see documentation in flowsheet General: comfortable appearing, no distress HEENT: Normocephalic, atraumatic, pupils round and equal, sclerae anicteric, no conjunctival injection, moist mucus membranes Lungs: Normal respiratory effort. Clear to auscultation bilaterally. No RRW Heart: Regular rate and rhythm, no murmurs. No JVD Abdomen: Soft, nontender, nondistended. Bowel sounds present. Extremities: Warm, dry, well-perfused. No extremity edema. Neuro: Alert and oriented x 4, face symmetric, moves 4 extremities well. 4/5 strength at left hip flexor, 5/5 dorsi flexion, 5/5 plantarflexion of left foot. this is pretty symmetric to the right side Psych: Normal affect and behavior Results & Data Results & Data Vital Signs (Past 12 Hours) Vital Signs Temp Pulse Resp BP BP Pulse Ox O2 Del Method 01/21/25 20:26 36.7 C 54 L 16 116/62 96 Room Air 01/21/25 15:21 36.9 C 64 18 111/65 96 Room Air 01/21/25 13:43 36.8 C 74 16 129/68 97 Room Air PG Care Time/CCT Total # of Minutes Spent Total Time Spent with Patient: Total time spent is greater than 50% in coordination of care (as documented) at patient's floor/unit and/or counseling patient: Coding Level of Care Code 37279 SUB INP/OBS CARE 2/35MIN Diagnoses Lumbosacral radiculitis M54.17 S/P lumbar spinal fusion Z98.1 Diabetes type 2, controlled E11.9 Diabetes mellitus assisted insulin use: without equipment operator intermodal yard use (3) Diabetes type 2, controlled Diabetes mellitus equipment operator intermodal yard insulin use: without equipment operator intermodal yard use
[2025-01-22] MEDS: MELATONIN 3 MG TAB PO PRN (00:34)
[2025-01-22 07:40] VITALS: PULSE 55; TEMP 98.2
--- NOTE | 2025-01-22 07:45 | Orthopedic Progress Note ---
Date of Service January 22, 2025 Assessment & Plan (1) S/P lumbar spinal fusion: She is POD 8 from lumbar fusion. She feels she has really improved over the past day and feels great. Case management was looking into rehab for her but she feels that she would like to go home at this point. Discussed with Dr Lechuga and meliton with discharge home from orthopedic standpoint. Recommend medrol dosepack, oxycodone, and tizanidine at discharge (if she does not have them we can send prescriptions). Follow up with Dr Lechuga in approximately 1 week. Subjective .69year old patient now POD 8 from s/p L5-S1 Transforaminal Lumbar Interbody Fusion with Posterolateral Fusion, L5 Laminectomy and Facetectomy at Site of Interbody Fusion, placement of posterior instrumentation, and L3 Laminectomy with Medial Facetectomy with CT navigation with Dr Lechuga. She says she feels "great" today. Her strength and sensation in her legs has improved. She has been able to get out of bed. She would like to be discharged home. Review of Systems All systems reviewed & are unremarkable except as noted in HPI & below. Physical Exam . alert and oriented. VSS Dressing on lower back clean, intact. Able to do a good straight leg raise bilaterally. Able to dorsiflex and plantarflex bilateral. Good strength. Slight weakness still with EHL on the left. Sensation intact to touch Results & Data Results & Data Laboratory Results . Diagnostic Findings . PG Care Time/CCT Total # of Minutes Spent Total Time Spent with Patient: Total time spent is greater than 50% in coordination of care (as documented) at patient's floor/unit and/or counseling patient: Coding Level of Care Code 35347 Post Operative Follow-Up Diagnoses S/P lumbar spinal fusion Z98.1
[2025-01-22 07:46] VITALS: O2SAT 95
[2025-01-22 10:10] VITALS: BP 129/68
--- NOTE | 2025-01-22 15:27 | Discharge Summary ---
Discharge Summary Date of Service January 22, 2025 Principal Dx & Hospital Course #1 = Principal Diagnosis (1) Lumbosacral radiculitis: (2) S/P lumbar spinal fusion: (3) Diabetes type 2, controlled: Plan 69-year-old female PMHx lumbar radiculopathy, T2DM, hypothyroidism, urinary retention, depression and bipolar disorder, with most recent hospital course 01/14/2025 until 01/18/2025 for lumbosacral radiculitis foraminal stenosis and s/p lumbar laminectomy/decompression was presenting as a direct admission for worsening low back pain with associated L foot drop. Outpatient MRI did reveal epidural fluid collection compressing thecal sac, no additional laboratory abnormalities were identified. #Lumbar radiculitis # postoperative fluid collection S/p lumbar laminectomy and decompression for lumbosacral radiculitis with foraminal stenosis, discharged 01/18/2025 and brought to rehab facility. Worsening back pain since discharge with reported foot drop. Patient without fever or chills, no additional infectious symptoms. MRI (outpatient) peripherally enhancing epidural fluid collection L3-L4 through L5-S1 disc space with mass effect along posterior thecal sac moderate to severe narrowing the thecal sac at these levels crowding of the cauda equina, small fluid collection L3-L4 and L5-S1 laminectomy site, 2 large subcu fluid collection deep to skin roxann, also with edema enhancement throughout paraspinal musculature, clumping of cauda equina suggesting arachnoiditis Dr. Hernandez consulted, reviewed recommendations and progress note today.. No evidence of epidural abscess or cauda equina syndrome. Did not require surgical drainage. Treated with analgesics and dexamethasone.Pain and neurological symptoms improving, mobility improved and feels great today. She has gained a great amount of strength in her left leg though she still has some numbness. She improved to where she was able to return home today she declined home health. She will follow-up with Dr. Resendez in about a week can be referred to outpatient physical therapy at that time if necessary. Discharged with oxycodone for pain control, tizanidine, Medrol Dosepak. she is on a baby aspirin at bedtime. # urinary retention - she has had this problem in the past and probably not related to her recent spinal surgery, excepting that she is getting opioids and is relatively immobilized urinalysis was negative - Clifford catheter placed - removed and voiding spontaneously at this time #T2DM, steroid-induced hyperglycemia has been fairly mild H/o DMT2; resume at home regimen metformin, tirzepatide. #HLD- Atorvastatin #Hypothyroidism- Levothyroxine #Bipolar/depression/Insomnia- Bupropion, buspirone, trazodone, quetiapine, lamotrigine #GERD- Pantoprazole #Asthma- Inhalers #IBS- Linzess Admission HPI Per Admitting Provider 69-year-old female PMHx lumbar radiculopathy, T2DM, hypothyroidism, urinary retention, depression and bipolar disorder, with most recent hospital course 01/14/2025 until 01/18/2025 for lumbosacral radiculitis foraminal stenosis and s/p lumbar laminectomy/decompression was presenting as a direct admission for worsening low back pain with associated L foot drop. 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 Also was having numbness/tingling to LLE near ankle, minimally at L thigh stating that it "feels just a little bit different." No saddle anesthesia. With urinary retention and currently a catheter in place, also has history of retention. States that the pain comes and goes, spasm like and severe. 10/10 pain on the pain scale. Shooting down bilateral legs. No fever/chills. No chest pain, SOB, palpitations, abdominal pain, N/V/D/C, extremity weakness, syncope, or URI symptoms. No LUTS otherwise. Outpatient labs revealed CBC without leukocytosis, H&H 10.2/31.7, elevated CRP 1.72, lactic acid at 1; pending labs.; Outpatient MRI revealed peripherally enhancing epidural fluid collection L3-L4 through L5-S1 disc space with mass effect along posterior thecal sac moderate to severe narrowing the thecal sac at these levels crowding of the cauda equina, small fluid collection L3-L4 and L5-S1 laminectomy site, 2 large subcu fluid collection deep to skin roxann, also with edema enhancement throughout paraspinal musculature, clumping of cauda equina suggesting arachnoiditis. Pending CBC, CMP, UA. Please see Dr. Marin's attestation for adjustments/additions to treatment plan. Discharge Exam PHYSICAL EXAMINATION Last 24h vital signs reviewed, see documentation in flowsheet General: comfortable appearing, no distress HEENT: Normocephalic, atraumatic, pupils round and equal, sclerae anicteric, no conjunctival injection, moist mucus membranes Lungs: Normal work of breathing Heart: Abdomen: soft and nondistended Extremities: Warm, dry, well-perfused. No extremity edema. Neuro: Alert and oriented x 4, face symmetric, moves 4 extremities well. 4+/5 strength at left hip flexor, 5/5 dorsi flexion, 5/5 plantarflexion of left foot. she is able to do a pretty magnificent straight leg raise on either side without any sciatica symptoms this is a big improvement compared to preop Psych: Normal affect and behavior Discharge Plan Discharge Items Patient Disposition: Home - Self-Care Reason For Visit: POST OP EPIDURAL FLUID COLLECTION Discharge Diagnosis: Postoperative epidural fluid collection Activity: Per Instructions section Weightbearing: Full weightbearing Non-emergency contact: Primary Care Provider and Surgeon Call non-emergency contact if: you have any medication questions, your symptoms worsen, your pain is worsening, you have a fever, your wound has increased redness and your wound has increased drainage Follow-up/Referrals: Jennifer Peng DO [Primary Care Provider] - 01/31/25 11:00 am Meet Lechuga MD [Surgeon] - Diet: Regular Addtl Attending Provider Instructions: Follow up with Dr. Lechuga next week - call and see if they can move your appointment a little earlier Use your walker for stability I recommend taking acetaminophen on a schedule for the first week or two (1000 mg three times a day OR 650 mg four times a day), then as needed Oxycodone as needed for more severe pain Tizanadine as needed for muscle spasm Medrol dosepack - tapering steroid - first dose today, otherwise take in AM to prevent sleep disturbance Take miralax or senna as needed to prevent constipation - these are available over the counter Hold meloxicam until Dr. Lechuga clears you to restart it - some spine surgeons prefer to hold NSAIDS right after surgery It was a pleasure taking care of you in the hospital Natasha Newsome MD Pending Studies at Discharge: No Stand-Alone Forms: My [facility] [place], Smoking Cessation Medications and DC Order Prescriptions: New tizanidine 4 mg Tablet 4 mg PO TID PRN (Reason: muscle spasticity) Qty: 30 0RF oxycodone 5 mg Tablet 5 - 10 mg PO Q4H PRN (Reason: pain) Qty: 30 0RF methylprednisolone 4 mg tablet See Rx Instructions .ROUTE .COMPLEX Qty: 21 0RF Rx Instructions: take daily in AM per taper. Start on 01/22 Continued atorvastatin 40 mg tablet 40 mg PO QAM Qty: 90 1RF metformin 1,000 mg tablet 1,000 mg PO BID Qty: 180 2RF albuterol sulfate 90 mcg/actuation HFA aerosol inhaler 2 puff inhalation Q6H PRN (Reason: shortness of breath or wheezing) Qty: 6.7 1RF furosemide [Lasix] 20 mg tablet 40 mg PO QAM Qty: 90 1RF Patient Comments: patient decreased herself quetiapine 300 mg tablet 300 mg PO HS Qty: 90 0RF buspirone 10 mg tablet 20 mg PO TID Qty: 540 2RF albuterol sulfate 2.5 mg /3 mL (0.083 %) solution for nebulization 2.5 mg inhalation QID PRN (Reason: shortness of breath or wheezing) Qty: 90 2RF Rx Instructions: DX ASTHMA azelastine 137 mcg (0.1 %) spray,non-aerosol 2 spray INTNAS BID PRN (Reason: congestion) Qty: 30 1RF Rx Instructions: Administer into each nostril fluticasone propionate [Flonase Allergy Relief] 50 mcg/actuation spray,suspension 2 spray INTNAS BID PRN (Reason: allergies) Qty: 16 1RF trazodone 100 mg tablet 100 mg PO HS Qty: 90 1RF Mounjaro 5 mg/0.5 mL pen injector 5 mg subcut .weekly Qty: 2 0RF tamsulosin [Flomax] 0.4 mg capsule 0.4 mg PO QPM Qty: 30 5RF bupropion HCl [Wellbutrin SR] 150 mg tablet sustained-release 12 hr 150 mg PO BID Qty: 180 2RF multivitamin Tablet 1 tab PO QAM (DME) nebulizer accessories Kit See Rx Instructions .Route Qty: 1 0RF Rx Instructions: As directed lamotrigine 100 mg tablet 200 mg PO BID Qty: 120 2RF quetiapine 25 mg tablet 25 mg PO QID Qty: 120 2RF potassium chloride 10 mEq tablet,ER particles/crystals 20 meq PO QAM fluticasone furoate-vilanterol [Breo Ellipta] 100-25 mcg/dose blister with device 1 inh inhalation DAILY PRN (Reason: Shortness Of Breath) vitamin A 8,000 unit Capsule 8,000 unit PO QAM cyanocobalamin (vitamin B-12) [Vitamin B-12] 1,000 mcg Tablet 1,000 mcg PO QAM cholecalciferol (vitamin D3) [Vitamin D3] 25 mcg (1,000 unit) Capsule 25 mcg PO QAM aspirin 81 mg tablet,delayed release (DR/EC) 81 mg PO HS melatonin 5 mg Capsule 10 mg PO HS levothyroxine 100 mcg tablet 100 mcg PO QAM Rx Instructions: TAKE 1 TABLET BY MOUTH EVERY DAY pantoprazole 40 mg tablet,delayed release (DR/EC) 40 mg PO BID Rx Instructions: take 1 tablet by mouth twice a day nystatin 100,000 unit/gram cream 1 applic topical BID PRN (Reason: Rash) linaclotide 290 mcg capsule 290 mcg PO QAM acetaminophen 500 mg tablet 1,000 mg PO Q8H PRN (Reason: pain) Qty: 180 0RF gabapentin 300 mg capsule 300 mg PO TID Qty: 90 0RF ondansetron 4 mg tablet,disintegrating 4 mg PO Q6H PRN (Reason: nausea and vomiting) Qty: 20 0RF Held meloxicam 15 mg tablet 15 mg PO QPM Hold Instructions: Resume on 04/16/25. Discontinued tizanidine 4 mg capsule 4 mg PO TID PRN (Reason: muscle spasticity) Qty: 30 0RF oxycodone 5 mg tablet 5 mg PO Q6H PRN (Reason: pain) Qty: 30 0RF Discharge Orders: Discharge Order (Routine); Ordered 01/22/25 Ordered By: Natasha Caballero/Other Patient Handouts: Post-Op Tips: Back Admission Data Admit Date/Time: 01/19/25 21:31 Attending Provider: Natasha Newsome Admit Provider: Natasha Newsome Primary Care Provider: Jennifer Peng Other Providers: Meet Lechuga; [facility] Other Interventions: Discharge Summary Assessment (RN) Last Done: 01/22/25 10:06 Hospital Stay Data Consultations 01/19/25 22:59 Consult Orthopedic Spine Surgery Routine Pending Results Patient Have Any Pending Studies at Discharge: No Discharge Instructions Given to Patient (Per Discharging Provider) Follow up with Dr. Lechuga next week - call and see if they can move your appointment a little earlier Use your walker for stability I recommend taking acetaminophen on a schedule for the first week or two (1000 mg three times a day OR 650 mg four times a day), then as needed Oxycodone as needed for more severe pain Tizanadine as needed for muscle spasm Medrol dosepack - tapering steroid - first dose today, otherwise take in AM to prevent sleep disturbance Take miralax or senna as needed to prevent constipation - these are available over the counter Hold meloxicam until Dr. Lechuga clears you to restart it - some spine surgeons prefer to hold NSAIDS right after surgery It was a pleasure taking care of you in the hospital Natasha Newsome MD Total Time Total Time Spent Total Time Spent (In Minutes): I personally spent: 35 minutes today on clinical care activities including: reviewing chart notes and vital signs examining and counseling the patient reviewing guidance consultant recommendations writing prescriptions, discharge instructions documentation Coding Level of Care Code 49217 INP/OBS DISCH >30 MIN Diagnoses Lumbosacral radiculitis M54.17 S/P lumbar spinal fusion Z98.1 Diabetes type 2, controlled E11.9 Diabetes mellitus technician terminal and repeater insulin use: without technician terminal and repeater use
[2025-01-22] MEDS ORDERED: ASPIRIN 81 MG ECTAB PO SCH (21:00)
== END 2025-01-22 11:48 | disposition home or self-care (01) ==
LOC: 3E 21:31 → INTOOBSV 21:31